=== PATIENT | male | born 1965 | race Two or more races ===

== ENCOUNTER 2016-10-11 11:56 | Inpatient (IN) | payer OTHER ==
[2016-10-11 13:15] VITALS: BMI 25.7
--- NOTE | 2016-10-11 14:40 | HP ---
COWS - Scale Resting Pulse: 2= NM 101-120 Sweatin=Flushed/Facial Moisture Restless Observation: 1= Difficult to Sit Still Pupil Size: 1= Pupils >than Normal Bone or Joint Aches: 2= Severe Diffuse Aches Runny Nose/ Eye Tearin= Nasal Congestion GI Upset > 30mins: 2= Nausea/Diarrhea Tremor Observation: 1= Tremor [place], Not Seen Yawning Observation: 0= None Anxiety or Irritability: 2=Irritable/Anxious Goose Flesh Skin: 0=Smooth Skin COWS Score: 14 CIWA Score - CIWA Score Nausea/Vomitin-Int. Nausea w/Dry Heave Muscle Tremors: 3 Anxiety: 3 Agitation: 3 Paroxysmal Sweats: 3 Orientation: 0-Oriented Tacttile Disturbances: 2-Mild Itch/Numbness/Burn Auditory Disturbances: 0-None Visual Disturbances: 0-None Headache: 1-Very Mild CIWA-Ar Total Score: 19 Admission ROS BHS - HPI Chief Complaint: i'm tired of this life I need help to stop. Allergies/Adverse Reactions: Allergies Allergy/AdvReac Type Severity Reaction Status Date / Time No Known Allergies Allergy Verified 10/11/16 14:12 History of Present Illness: 51 y/o m pt with h/o heroin dep, chronic alcoholism and cocaine abuse seeking detox. Exam Limitations: No Limitations - Ebola screening Have you traveled outside of the country in the last 21 days: No Have you had contact with anyone from an Ebola affected area: No Have you been sick,other than usual withdrawal symptoms: No Do you have a fever: No - Review of Systems Constitutional: Malaise, Night Sweats, Changes in sleep, Unintentional Wgt. Loss (10 lbs x 2 weeks) EENT: reports: No Symptoms Reported Respiratory: reports: No Symptoms reported Cardiac: reports: No Symptoms Reported GI: reports: Diarrhea, Nausea, Vomiting, Abdominal cramping : reports: Frequency Musculoskeletal: reports: Back Pain Integumentary: reports: No Symptoms Reported Neuro: reports: Headache Endocrine: reports: No Symptoms Reported Hematology: reports: No Symptoms Reported Psychiatric: denies: No Sypmtoms Reported Other Systems: Reviewed and Negative Patient History - Patient Medical History Hx Anemia: No Hx Asthma: No Hx Chronic Obstructive Pulmonary Disease (COPD): No Hx Cancer: No Hx Cardiac Disorders: No Hx Congestive Heart Failure: No Hx Hypertension: Yes (ON MEDS.) Hx Hypercholesterolemia: No Hx Pacemaker: No HX Cerebrovascular Accident: No Hx Seizures: No Hx Dementia: No Hx Diabetes: No Hx Gastrointestinal Disorders: No Hx Liver Disease: No Hx Genitourinary Disorders: No Hx Sexually Transmitted Disorders: No Hx Renal Disease (ESRD): No Hx Thyroid Disease: No Hx Human Immunodeficiency Virus (HIV): No (NEGATIVE HX LAST 11/09) Hx Hepatitis C: Yes (no tx ) Hx Depression: No Hx Suicide Attempt: No Hx Bipolar Disorder: No Hx Schizophrenia: No - Patient Surgical History Past Surgical History: Yes Hx Neurologic Surgery: No Hx Cataract Extraction: No Hx Cardiac Surgery: No Hx Lung Surgery: No Hx Breast Surgery: No Hx Breast Biopsy: No Hx Abdominal Surgery: No Hx Appendectomy: No Hx Cholecystectomy: No Hx Genitourinary Surgery: No Hx Section: No Hx Orthopedic Surgery: Yes (fx, left forearm at age 25) Anesthesia Reaction: No - PPD History Previous Implant?: Yes Documented Results: Negative w/proof Implanted On Prior [facility] Admission?: Yes Date: 08/17/16 Results: 0 MM - Reproductive History Patient is a Female of Child Bearing Age (11 -55 yrs old): No - Smoking Cessation Smoking history: Current every day smoker Have you smoked in the past 12 months: Yes Aproximately how many cigarettes per day: 20 Cigars Per Day: 0 Hx Chewing Tobacco Use: No Initiated information on smoking cessation: Yes 'Breaking Loose' booklet given: 10/11/16 - Substance & Tx. History Hx Alcohol Use: Yes Hx Substance Use: Yes Substance Use Type: Alcohol, Cocaine, Heroin - Substances Abused Heroin Route: Injection Frequency: Daily Amount used: 8 BAGS Age of first use: 25 Date of Last Use: 10/10/16 Alcohol Route: Oral Frequency: Daily Amount used: 6-8 22 OZ BEERS Age of first use: 20 Date of Last Use: 10/11/16 Cocaine Route: Injection Frequency: 3-6 times per week Amount used: $20 Age of first use: 20 Date of Last Use: 10/09/16 Family Disease History - Family Disease History Family Disease History: Diabetes: Mother, [place]: Father (ETOH DEPENDENT AND FROM [place]. OF THE ESOPHAGUS) Admission Physical Exam BHS - Vital Signs Vital Signs: Vital Signs - 24 hr 10/11/16 10/11/16 10/11/16 13:13 13:15 13:17 Temperature 96.4 F L 96.4 F L 96.4 F L Pulse Rate 118 H 118 H 118 H Respiratory 20 20 20 Rate Blood Pressure 151/92 151/92 151/92 51 y/o m pt aox3 , anxious , cooperative with exam - Physical General Appearance: Yes: Tremorous, Irritable, Sweating, Anxious HEENTM: Yes: EOMI, Hearing grossly Normal, Normocephalic, Normal Voice, CUCA, Nasal Congestion Respiratory: Yes: Chest Non-Tender, Lungs Clear, Normal Breath Sounds, No Respiratory Distress Breast: Yes: Within Normal Limits Cardiology: Yes: Regular Rhythm, Regular Rate, S1, S2 Genitourinary: Yes: Frequency Back: Yes: Muscle Spasm Extremities: Yes: Tremors Neurological: Yes: insurance law specialist II-XII NML intact, Fully Oriented, Alert, Normal Response Integumentary: Yes: Moist Lymphatic: Yes: Within Normal Limits - Diagnostic (1) Alcohol dependence with uncomplicated withdrawal Current Visit: Yes Status: Chronic (2) Cocaine dependence Current Visit: Yes Status: Chronic Qualifiers: Substance use status: uncomplicated Qualified Code(s): F14.20 - Cocaine dependence, uncomplicated (3) Low back pain Current Visit: No Status: Acute Qualifiers: Chronicity: acute Back pain laterality: bilateral Sciatica presence : without sciatica Qualified Code(s): M54.5 - Low back pain (4) Opioid dependence with withdrawal Current Visit: No Status: Acute (5) Weight loss Current Visit: Yes Status: Acute (6) HTN (hypertension) Current Visit: Yes Status: Chronic Qualifiers: Hypertension type: essential hypertension Qualified Code(s): I10 - Essential (primary) hypertension (7) Nicotine dependence Current Visit: Yes Status: Chronic Qualifiers: Nicotine product type: cigarettes Substance use status: uncomplicated Qualified Code(s): F17.210 - Nicotine dependence, cigarettes, uncomplicated Cleared for Admission B[facility] - Detox or Rehab [facility] Level of Care: Medically Managed Detox Regimen/Protocol: Methadone/Librium B[facility] Breath Alcohol Content Breath Alcohol Content: 0 Urine Drug Screen - Results Drug Screen Negative: No Urine Drug Screen Results: ONEIL-Cocaine, OPI-Opiates, MTD-Methadone
[2016-10-11] MEDS ORDERED: LOPERAMIDE HCL 2 MG CAPSULE PO PRN (14:58)
[2016-10-11] MEDS ORDERED: diphenhydrAMINE HCL 50 MG CAPSULE PO PRN (14:58)
[2016-10-11] MEDS ORDERED: ACETAMINOPHEN 325 MG TABLET (FP) PO PRN (14:58)
[2016-10-11] MEDS ORDERED: NICOTINE POLACRILEX 4 MG GUM BUC PRN (14:58)
[2016-10-11] MEDS ORDERED: MAGNESIUM CITRATE 300 ML BOTTLE PO PRN (14:58)
[2016-10-11] MEDS ORDERED: P-EPHED 60MG/TRIPROLIDI 2.5MG TABLET PO PRN (14:58)
[2016-10-11] MEDS ORDERED: MENTHOL/PHENOL 1 EACH UD MM PRN (14:58)
[2016-10-11] MEDS ORDERED: hydrOXYzine PAMOATE 25 MG CAPSULE (FP) PO PRN (14:58)
[2016-10-11] MEDS ORDERED: guaiFENesin/D-METHORPHAN HB 10 ML UNIT-DOSE CUPS PO PRN (14:58)
[2016-10-11] MEDS ORDERED: IBUPROFEN 400 MG TABLET (FP) PO PRN (14:58)
[2016-10-11] MEDS ORDERED: MAGNESIUM HYDROX 2400MG/30ML ORAL SUSPENSION 30 ML CUP PO PRN (14:58)
[2016-10-11] MEDS ORDERED: MAG HYDROX/AL HYDROX/SIMETH 30 ML UNIT-DOSE CUP PO PRN (14:58)
[2016-10-11] MEDS ORDERED: METHADONE HCL 10 MG TABLET (FOR DETOX USE ONLY) PO ONE ×2 (15:47→23:00)
[2016-10-11] MEDS: chlordiazePOXIDE HCL 25 MG CAPSULE PO PRN (16:00)
[2016-10-11] MEDS: chlordiazePOXIDE HCL 25 MG CAPSULE PO SCH ×2 (17:26→22:13)
[2016-10-11 20:27] LABS: URINE APPEARANCE CLEAR; URINE BILIRUBIN NEGATIVE (NEGATIVE); URINE BLOOD NEGATIVE (NEGATIVE); URINE COLOR YELLOW; URINE GLUCOSE (UA) NEGATIVE (NEGATIVE); URINE KETONE NEGATIVE (NEGATIVE); URINE LEUK ESTERASE NEGATIVE (NEGATIVE); URINE NITRITE NEGATIVE (NEGATIVE); URINE PROTEIN NEGATIVE (NEGATIVE); URINE UROBILINOGEN 2.0 E.U/dl E.U./dl (0.2-1.0)
[2016-10-11] MEDS ORDERED: THIAMINE HCL 100 MG TABLET (FP) PO SCH (22:00)
[2016-10-12] MEDS: chlordiazePOXIDE HCL 25 MG CAPSULE PO SCH ×2 (05:33→10:18)
[2016-10-12] MEDS ORDERED: PRENATAL VITAMINS W/ FOLIC ACID TABLET (FP) PO SCH (10:00)
[2016-10-12] MEDS ORDERED: NICOTINE 21 MG/24 HOURS TOPICAL PATCH TD SCH (10:00)
[2016-10-12] MEDS ORDERED: METHADONE HCL 10 MG TABLET (FOR DETOX USE ONLY) PO SCH (10:00)
[2016-10-12] MEDS ORDERED: METOPROLOL TARTRATE 50 MG TABLET (FP) PO SCH (10:00)
[2016-10-12] MEDS ORDERED: amLODIPine BESYLATE 5 MG TABLET (FP) PO SCH (10:00)
[2016-10-12 10:14] LABS: CALCIUM 9.2 mg/dL (8.5-10.1)
[2016-10-12 10:20] LABS: ALBUMIN 3.8 g/dl (3.4-5.0); ALK PHOS 131 U/L (45-117); ANION GAP 9 (8-16); BILIRUBIN,TOTAL 0.7 mg/dL (0.2-1.0); CO2 21 mmol/L (21-32); GLUCOSE,RANDOM 151 mg/dL (74-106); SGOT/AST 69 U/L (15-37); SGPT/ALT 85 U/L (12-78); TOT PROT 8.2 g/dl (6.4-8.2)
[2016-10-12 10:22] LABS: MCH 30.3 pg (25.7-33.7); MCHC 33.3 g/dl (32.0-35.9); MEAN PLT VOLUME 9.5 fl (7.5-11.1); PLATELET COUNT 264 K/MM3 (134-434); RDW 13.9 % (11.9-15.9); WHITE BLOOD COUNT 4.3 K/mm3 (4.0-10.0)
[2016-10-12 11:39] LABS: HIV 1 & 2 AB NEGATIVE; HIV 1 AGp24 NEGATIVE
[2016-10-12 14:18] VITALS: BP 138/97; PULSE 76; TEMP 95.3
[2016-10-12] MEDS: chlordiazePOXIDE HCL 25 MG CAPSULE PO PRN (14:51)
--- NOTE | 2016-10-12 15:46 | DS ---
[facility] Detox Discharge Summary Admission Date: 10/11/16 Discharge Date: 10/12/16 - History Present History: Alcohol Dependence, Cocaine Dependence, Opioid Dependence Additional Comments: PT DECLINED TO CONTINUE WITH DETOX. WHEN ASKED, PT DEMANDS TO LEAVE NOW STATING "I DON'T WANT TO KILL SOMEBODY". PT SIGNED OUT AMA. Pertinent Past History: HTN OBESITY LOWER BACK PAIN - Physical Exam Results Vital Signs: Vital Signs Temperature 95.3 F L 10/12/16 14:17 Pulse Rate 76 10/12/16 14:17 Respiratory Rate 18 10/12/16 14:17 Blood Pressure 138/97 10/12/16 14:17 O2 Sat by Pulse Oximetry (%) Pertinent Admission Physical Exam Findings: WITHDRAWAL SX - Medication Discharge Medications: Ambulatory Orders Amlodipine Besylate [Norvasc -] 5 mg PO DAILY #30 tablet 03/04/16 Metoprolol Tartrate [Lopressor -] 50 mg PO DAILY #30 tablet 03/04/16 - Diagnosis (1) Alcohol dependence with uncomplicated withdrawal Current Visit: Yes Status: Acute (2) HTN (hypertension) Current Visit: Yes Status: Chronic Qualifiers: Hypertension type: essential hypertension Qualified Code(s): I10 - Essential (primary) hypertension (3) Nicotine dependence Current Visit: Yes Status: Chronic Qualifiers: Nicotine product type: cigarettes Substance use status: uncomplicated Qualified Code(s): F17.210 - Nicotine dependence, cigarettes, uncomplicated (4) Low back pain Current Visit: No Status: Acute Qualifiers: Chronicity: acute Back pain laterality: bilateral Sciatica presence : without sciatica Qualified Code(s): M54.5 - Low back pain (5) Opioid dependence with withdrawal Current Visit: Yes Status: Acute (6) Obesity Current Visit: Yes Status: Chronic Qualifiers: Obesity severity: unspecified obesity severity (7) Cocaine dependence Current Visit: Yes Status: Acute Qualifiers: Substance use status: uncomplicated Qualified Code(s): F14.20 - Cocaine dependence, uncomplicated - AMA Did Patient Leave Against Medical Advice: Yes (AMA)
--- NOTE | 2016-10-12 16:56 | EKG ---
Test Reason : Blood Pressure : / mmHG Vent. Rate : 095 BPM Atrial Rate : 095 BPM P-R Int : 152 ms QRS Dur : 084 ms QT Int : 356 ms P-R-T Axes : 064 022 011 degrees QTc Int : 447 ms NORMAL SINUS RHYTHM NORMAL ECG NO PREVIOUS ECGS AVAILABLE Confirmed by VIANEY CARROLL MD ([id number]) on 10/12/2016 4:55:52 PM Referred By: Confirmed By:VIANEY CARROLL MD
[2016-10-12] MEDS ORDERED: chlordiazePOXIDE HCL 25 MG CAPSULE PO SCH (17:00)
[2016-10-13] MEDS ORDERED: METHADONE HCL 5 MG TABLET (FOR DETOX USE ONLY) PO SCH (10:00)
[2016-10-13] MEDS ORDERED: chlordiazePOXIDE 5 MG CAPSULE PO SCH (17:00)
[2016-10-14] MEDS ORDERED: chlordiazePOXIDE HCL 10 MG CAPSULE PO SCH (17:00)
[2016-10-15] MEDS ORDERED: METHADONE HCL 10 MG TABLET (FOR DETOX USE ONLY) PO SCH (10:00)
[2016-10-16] MEDS ORDERED: METHADONE HCL 5 MG TABLET (FOR DETOX USE ONLY) PO SCH (06:00)
== END 2016-10-12 16:17 | disposition left against medical advice (07) | DRG 770 ==
LOC: YASAS 11:56 → Y3N 15:17
PROVIDERS: ADMIT Internal Medicine; ATTEND Internal Medicine
PROC: HZ2ZZZZ Detoxification Services for Substance Abuse Treatment (ICD-10-PCS; principal; 2016-10-11)
DX: F11.23 Opioid dependence with withdrawal (principal); F10.230 Alcohol dependence with withdrawal, uncomplicated; F14.20 Cocaine dependence, uncomplicated; F17.210 Nicotine dependence, cigarettes, uncomplicated; I10 Essential (primary) hypertension; M54.5 Low back pain; E66.9 Obesity, unspecified; Z68.25 Body mass index [BMI] 25.0-25.9, adult; Z87.898 Personal history of other specified conditions
CPT/HCPCS: 36415; 80053; 81003; 85027; 86593; 86780; 87389; 93005; 93010

== ENCOUNTER 2017-06-13 11:07 | Inpatient (IN) | payer OTHER ==
[2017-06-13 16:06] VITALS: BMI 25.7
--- NOTE | 2017-06-13 17:41 | HP ---
COWS - Scale Resting Pulse: 1= [place] 81-100 Sweatin= Chills/Flushing Restless Observation: 1= Difficult to Sit Still Pupil Size: 0= Normal to Room Light Bone or Joint Aches: 2= Severe Diffuse Aches Runny Nose/ Eye Tearin= Runny Nose/Eyes GI Upset > 30mins: 2= Nausea/Diarrhea Tremor Observation: 2= Slight Tremor Visible Yawning Observation: 0= None Anxiety or Irritability: 2=Irritable/Anxious Goose Flesh Skin: 0=Smooth Skin COWS Score: 13 CIWA Score - CIWA Score Nausea/Vomitin-Mild Nausea/No Vomiting Muscle Tremors: 4-Moderate,w/Arms Extend Anxiety: 4-Mod. Anxious/Guarded Agitation: 4-Moderately Restless Paroxysmal Sweats: 1-Minimal Palms Moist Orientation: 0-Oriented Tacttile Disturbances: 0-None Auditory Disturbances: 0-None Visual Disturbances: 0-None Headache: 0-None Present CIWA-Ar Total Score: 14 Admission ROS BHS - HPI Chief Complaint: WITHDRAWAL SX Allergies/Adverse Reactions: Allergies Allergy/AdvReac Type Severity Reaction Status Date / Time No Known Allergies Allergy Verified 06/13/17 17:04 History of Present Illness: 52 YEARS OLD MALE WITH LONG HISTORY OF ALCOHOL, OPIATE, COCAINE, NICOTINE DEPENDENCE, DENIES MEDICAL ISSUE HAS DEPRESSION IS ADMITTED TO DETOX Exam Limitations: No Limitations - Ebola screening Have you traveled outside of the country in the last 21 days: No Have you had contact with anyone from an Ebola affected area: No Have you been sick,other than usual withdrawal symptoms: No Do you have a fever: No - Review of Systems Constitutional: Loss of Appetite, Changes in sleep, Unintentional Wgt. Loss, Unexplained wgt Loss EENT: reports: No Symptoms Reported Respiratory: reports: No Symptoms reported Cardiac: reports: No Symptoms Reported GI: reports: Nausea, Poor Appetite, Poor Fluid Intake, Abdominal cramping : reports: No Symptoms Reported Musculoskeletal: reports: Back Pain, Joint Pain, Muscle Pain, Neck Pain Integumentary: reports: Change in Color (OPIATE BOTH HANDS) Neuro: reports: Tremors Endocrine: reports: No Symptoms Reported Hematology: reports: No Symptoms Reported Psychiatric: reports: Judgement Intact, Orientated x3, Anxious, Depressed Other Systems: Reviewed and Negative Patient History - Patient Medical History Hx Anemia: No Hx Asthma: No Hx Chronic Obstructive Pulmonary Disease (COPD): No Hx Cancer: No Hx Cardiac Disorders: No Hx Congestive Heart Failure: No Hx Hypertension: No (not on meds.) Hx Hypercholesterolemia: No Hx Pacemaker: No HX Cerebrovascular Accident: No Hx Seizures: No Hx Dementia: No Hx Diabetes: No Hx Gastrointestinal Disorders: Yes Hx Liver Disease: No Hx Genitourinary Disorders: No Hx Sexually Transmitted Disorders: No Hx Renal Disease (ESRD): No Hx Thyroid Disease: No Hx Human Immunodeficiency Virus (HIV): No (NEGATIVE HX LAST 11/09) Hx Hepatitis C: Yes (no tx ) Hx Depression: Yes Hx Suicide Attempt: No Hx Bipolar Disorder: No Hx Schizophrenia: No - Patient Surgical History Past Surgical History: Yes Hx Neurologic Surgery: No Hx Cataract Extraction: No Hx Cardiac Surgery: No Hx Lung Surgery: No Hx Breast Surgery: No Hx Breast Biopsy: No Hx Abdominal Surgery: No Hx Appendectomy: No Hx Cholecystectomy: No Hx Genitourinary Surgery: No Hx Orthopedic Surgery: Yes (fx, left forearm at age 25 [employer]) Anesthesia Reaction: No - PPD History Previous Implant?: Yes Documented Results: Negative w/proof Implanted On Prior [facility] Admission?: Yes Date: 08/17/16 Results: 0 mm PPD to be Administered?: No - Smoking Cessation Smoking history: Current every day smoker Have you smoked in the past 12 months: Yes Aproximately how many cigarettes per day: 20 Cigars Per Day: 0 Hx Chewing Tobacco Use: No Initiated information on smoking cessation: Yes 'Breaking Loose' booklet given: 06/13/17 - Substance & Tx. History Hx Alcohol Use: Yes Hx Substance Use: Yes Substance Use Type: Alcohol, Cocaine, Heroin Hx Substance Use Treatment: Yes (10/11-10/12/16 [facility]) - Substances Abused Heroin Route: Injection Frequency: Daily Amount used: 10 bags Age of first use: 25 Date of Last Use: 06/13/17 Alcohol Route: Oral Frequency: Daily Amount used: 8-10 beers/60OZ Age of first use: 20 Date of Last Use: 06/13/17 Cocaine Route: Injection Frequency: Daily Amount used: $60 Age of first use: 25 Date of Last Use: 06/13/17 Family Disease History - Family Disease History Family Disease History: Diabetes: Mother, [place]: Father (ETOH DEPENDENT AND FROM [place]. OF THE ESOPHAGUS) Admission Physical Exam [facility] - Vital Signs Vital Signs: Vital Signs - 24 hr 06/13/17 16:04 Temperature 96 F L Pulse Rate 84 Respiratory 20 Rate Blood Pressure 134/84 - Physical General Appearance: Yes: Appropriately Dressed, Mild Distress, Thin, Tremorous, Irritable, Sweating, Anxious HEENTM: Yes: Hearing grossly Normal, Normal ENT Inspection, Normocephalic, Normal Voice Respiratory: Yes: Chest Non-Tender, Lungs Clear, Normal Breath Sounds, No Respiratory Distress, No Accessory Muscle Use Neck: Yes: Supple, Trachea in good position Breast: Yes: Breasts Symetrical Cardiology: Yes: Regular Rhythm, Regular Rate, S1, S2 Abdominal: Yes: Normal Bowel Sounds, Non Tender, Soft Genitourinary: Yes: Within Normal Limits Back: Yes: Normal Inspection, Other (RIGHT FLANK MILD TENDER) Musculoskeletal: Yes: full range of Motion, Gait Steady, Back pain, Muscle Pain Extremities: Yes: Normal Inspection (IV OPIATE HANDS), Normal Range of Motion, Non-Tender, Tremors Neurological: Yes: Fully Oriented, Alert, Motor Strength 5/5, Normal Response, Depressed Affect Integumentary: Yes: Warm, Track Fuentes Lymphatic: Yes: Within Normal Limits - Diagnostic (1) Alcohol dependence with uncomplicated withdrawal Current Visit: Yes Status: Acute (2) Opioid dependence with withdrawal Current Visit: Yes Status: Acute (3) Weight loss Current Visit: Yes Status: Acute (4) Cocaine dependence, uncomplicated Current Visit: Yes Status: Chronic (5) GERD (gastroesophageal reflux disease) Current Visit: Yes Status: Chronic Qualifiers: Esophagitis presence: without esophagitis Qualified Code(s): K21.9 - Gastro-esophageal reflux disease without esophagitis (6) Hepatitis C carrier Current Visit: Yes Status: Chronic Comment: SCHEDULE TO TREAT Cleared for Admission [facility] - Detox or Rehab [facility] Level of Care: Medically Managed Detox Regimen/Protocol: Methadone/Librium [facility] Breath Alcohol Content Breath Alcohol Content: 0 Urine Drug Screen - Results Drug Screen Negative: No Urine Drug Screen Results: ONEIL-Cocaine, OPI-Opiates
[2017-06-13] MEDS ORDERED: P-EPHED 60MG/TRIPROLIDI 2.5MG TABLET PO PRN (17:50)
[2017-06-13] MEDS ORDERED: MAGNESIUM CITRATE 300 ML BOTTLE PO PRN (17:50)
[2017-06-13] MEDS ORDERED: MAG HYDROX/AL HYDROX/SIMETH 30 ML UNIT-DOSE CUP PO PRN (17:50)
[2017-06-13] MEDS ORDERED: LOPERAMIDE HCL 2 MG CAPSULE PO PRN (17:50)
[2017-06-13] MEDS ORDERED: MENTHOL/PHENOL 1 EACH UD MM PRN (17:50)
[2017-06-13] MEDS ORDERED: guaiFENesin/D-METHORPHAN HB 10 ML UNIT-DOSE CUPS PO PRN (17:50)
[2017-06-13] MEDS ORDERED: MAGNESIUM HYDROX 2400MG/30ML ORAL SUSPENSION 30 ML CUP PO PRN (17:50)
[2017-06-13] MEDS ORDERED: BACITRACIN 0.9 GM PACKET TP PRN (17:53)
[2017-06-13] MEDS ORDERED: METHADONE HCL 10 MG TABLET (FOR DETOX USE ONLY) PO ONE ×2 (18:30→23:00)
[2017-06-13] MEDS: chlordiazePOXIDE HCL 25 MG CAPSULE PO PRN (19:11)
[2017-06-13 21:27] LABS: URINE APPEARANCE SLCLOUDY; URINE BILIRUBIN NEGATIVE (NEGATIVE); URINE BLOOD NEGATIVE (NEGATIVE); URINE COLOR YELLOW; URINE GLUCOSE (UA) NEGATIVE (NEGATIVE); URINE KETONE NEGATIVE (NEGATIVE); URINE LEUK ESTERASE NEGATIVE (NEGATIVE); URINE NITRITE NEGATIVE (NEGATIVE); URINE PROTEIN NEGATIVE (NEGATIVE); URINE UROBILINOGEN NEGATIVE mg/dL (0.2-1.0)
[2017-06-13] MEDS: THIAMINE HCL 100 MG TABLET (FP) PO SCH (22:27)
[2017-06-13] MEDS: chlordiazePOXIDE HCL 25 MG CAPSULE PO SCH (22:27)
[2017-06-13] MEDS: RANITIDINE HCL 150 MG TABLET (FP) PO SCH (22:27)
[2017-06-14] MEDS: chlordiazePOXIDE HCL 25 MG CAPSULE PO SCH ×4 (05:38→22:35)
[2017-06-14] MEDS ORDERED: METHADONE HCL 10 MG TABLET (FOR DETOX USE ONLY) PO SCH (10:00)
[2017-06-14 10:21] LABS: MCH 30.2 pg (25.7-33.7); MCHC 33.7 g/dl (32.0-35.9); MEAN CELL VOLUME 89.4 fl (80-96); MEAN PLT VOLUME 8.9 fl (7.5-11.1); PLATELET COUNT 219 K/MM3 (134-434); RDW 13.7 % (11.9-15.9); WHITE BLOOD COUNT 3.8 K/mm3 (4.0-10.0)
[2017-06-14 10:33] LABS: ALBUMIN 2.7 g/dl (3.4-5.0); ALK PHOS 75 U/L (45-117); ANION GAP 6 (8-16); BILIRUBIN,TOTAL 0.3 mg/dL (0.2-1.0); CALCIUM 8.8 mg/dL (8.5-10.1); CO2 25 mmol/L (21-32); CREATININE 0.9 mg/dL (0.7-1.3); GLUCOSE,RANDOM 93 mg/dL (74-106); SGOT/AST 35 U/L (15-37); SGPT/ALT 49 U/L (12-78); TOT PROT 6.4 g/dl (6.4-8.2)
[2017-06-14] MEDS: RANITIDINE HCL 150 MG TABLET (FP) PO SCH ×2 (10:44→22:35)
[2017-06-14] MEDS: PRENATAL VITAMINS W/ FOLIC ACID TABLET (FP) PO SCH (10:44)
[2017-06-14] MEDS: NICOTINE 21 MG/24 HOURS TOPICAL PATCH TD SCH (10:45)
[2017-06-14 11:29] LABS: HIV 1 & 2 AB NEGATIVE; HIV 1 AGp24 NEGATIVE
[2017-06-14] MEDS: chlordiazePOXIDE HCL 25 MG CAPSULE PO PRN (12:35)
--- NOTE | 2017-06-14 13:44 | PN ---
[facility] CIWA - CIWA Score Nausea/Vomitin-No Nausea/No Vomiting Muscle Tremors: 3 Anxiety: 4-Mod. Anxious/Guarded Agitation: 4-Moderately Restless Paroxysmal Sweats: 3 Orientation: 0-Oriented Tacttile Disturbances: 0-None Auditory Disturbances: 0-None Visual Disturbances: 0-None Headache: 0-None Present CIWA-Ar Total Score: 14 S COWS - Scale Resting Pulse: 1= DE 81-100 Sweatin=Flushed/Facial Moisture Restless Observation: 1= Difficult to Sit Still Pupil Size: 0= Normal to Room Light Bone or Joint Aches: 1= Mild Discomfort Runny Nose/ Eye Tearin= Runny Nose/Eyes GI Upset > 30mins: 2= Nausea/Diarrhea Tremor Observation of Outstretched Hands: 2= Slight Tremor Visible Yawning Observation: 1= 1-2x During Session Anxiety or Irritability: 2=Irritable/Anxious Goose Flesh Skin: 0=Smooth Skin COWS Score: 14 [facility] Progress Note (SOAP) Subjective: Anxiety,tremors,sweating,interrupted sleep,restless Objective: 06/14/17 13:46 Vital Signs - 8 hr 06/14/17 09:49 Temperature 98.4 F Pulse Rate 85 Respiratory 18 Rate Blood Pressure 167/101 Laboratory Tests 06/13/17 06/14/17 06/14/17 20:50 07:30 07:30 WBC 3.8 L RBC 4.74 Hgb 14.3 D Hct 42.4 MCV 89.4 MCH 30.2 MCHC 33.7 RDW 13.7 Plt Count 219 MPV 8.9 Sodium Potassium Chloride Carbon Dioxide Anion Gap BUN Creatinine Creat Clearance w eGFR Random Glucose Calcium Total Bilirubin AST ALT Alkaline Phosphatase Total Protein Albumin Urine Color Yellow Urine Appearance Slcloudy Urine pH 5.0 Ur Specific [place] 1.015 Urine Protein Negative Urine Glucose (UA) Negative Urine Ketones Negative Urine Blood Negative Urine Nitrite Negative Urine Bilirubin Negative Urine Urobilinogen Negative RPR Titer T.pallidum Ab (A) HIV 1&2 Antibody Screen Negative HIV P24 Antigen Negative 06/14/17 06/14/17 07:30 07:30 WBC RBC Hgb Hct MCV MCH MCHC RDW Plt Count MPV Sodium 140 Potassium 4.4 Chloride 109 H Carbon Dioxide 25 Anion Gap 6 L BUN 12 Creatinine 0.9 Creat Clearance w eGFR > 60 Random Glucose 93 D Calcium 8.8 Total Bilirubin 0.3 D AST 35 D ALT 49 D Alkaline Phosphatase 75 D Total Protein 6.4 D Albumin 2.7 L D Urine Color Urine Appearance Urine pH Ur Specific [place] Urine Protein Urine Glucose (UA) Urine Ketones Urine Blood Urine Nitrite Urine Bilirubin Urine Urobilinogen RPR Titer Reactive 1:1 H T.pallidum Ab (MHA) Previously reactive HIV 1&2 Antibody Screen HIV P24 Antigen labs noted Assessment: 06/14/17 13:49 Withdrawal sx. Plan: Continue detox
--- NOTE | 2017-06-14 14:03 | CONSULT ---
[facility] Psychiatric Consult - Data Date of interview: 06/14/17 Admission source: [facility] Identifying data: This is 52 years old male with unclear past psychiatric history intoxicated with: Alcohol, Cocaine, Opioids and Nicotine Substance Abuse History: - Smoking Cessation. Smoking history: Current every day smoker. Have you smoked in the past 12 months: Yes. Aproximately how many cigarettes per day: 20. Cigars Per Day: 0. Hx Chewing Tobacco Use: No. Initiated information on smoking cessation: Yes. 'Breaking Loose' booklet given : 06/13/17. - Substance & Tx. History. Hx Alcohol Use: Yes. Hx Substance Use : Yes. Substance Use Type: Alcohol, Cocaine, Heroin. Hx Substance Use Treatment: Yes (10/11-10/12/16 [facility]). - Substances Abused. Heroin. Route: Injection. Frequency: Daily. Amount used: 10 bags. Age of first use: 25. Date of Last Use: 06/13/17. Alcohol. Route: Oral. Frequency: Daily. Amount used: 8-10 beers/60OZ. Age of first use: 20. Date of Last Use: . Cocaine. Route: Injection. Frequency: Daily. Amount used: $60. Age of first use: 25. Date of Last Use: 06/13/17 Medical History: Weight loss history, GERD, HepC+, LBP, HTN, Obesity Psychiatric History: Patient minimizing past psychiatric history Physical/Sexual Abuse/Trauma History: Denies, unclear Additional Comment: Observation. Detox Unit Care Protocol Mental Status Exam - Mental Status Exam Alert and Oriented to: Person Cognitive Function: Fair Patient Appearance: Unkempt Mood: Sad Affect: Flat Patient Behavior: Sedated Speech Pattern: Delayed Voice Loudness: Mildly Soft/Quiet Thought Process: Circumstantial Thought Disorder: Being Controlled Hallucinations: Denies Suicidal Ideation: Denies Homicidal Ideation: Denies Insight/Judgement: Fair Sleep: Difficulty falling asleep Appetite: Weight gain Muscle strength/Tone: Mild Hypotonicity Gait/Station: Shuffling Additional Comments: Observation. Detox Unit Care Protocol Psychiatric Findings - Problem List ([place] 1, 2,3) (1) Alcohol dependence with uncomplicated withdrawal Current Visit: Yes Status: Acute (2) Opioid dependence with withdrawal Current Visit: Yes Status: Acute (3) Weight loss Current Visit: Yes Status: Acute (4) Cocaine dependence, uncomplicated Current Visit: Yes Status: Chronic (5) Alcohol dependence Current Visit: No Status: Acute Qualifiers: Substance use status: uncomplicated Qualified Code(s): F10.20 - Alcohol dependence, uncomplicated (6) Cocaine dependence Current Visit: No Status: Acute Qualifiers: Substance use status: uncomplicated Qualified Code(s): F14.20 - Cocaine dependence, uncomplicated (7) Nicotine dependence Current Visit: No Status: Chronic Qualifiers: Nicotine product type: cigarettes Substance use status: uncomplicated Qualified Code(s): F17.210 - Nicotine dependence, cigarettes, uncomplicated (8) Drug-induced mood disorder Current Visit: Yes Status: Suspected - Initial Treatment Plan Initial Treatment Plan: Observation. Detox Unit Care Protocol
--- NOTE | 2017-06-14 16:01 | EKG ---
Test Reason : Blood Pressure : / mmHG Vent. Rate : 081 BPM Atrial Rate : 081 BPM P-R Int : 152 ms QRS Dur : 076 ms QT Int : 396 ms P-R-T Axes : 062 031 028 degrees QTc Int : 460 ms NORMAL SINUS RHYTHM NORMAL ECG WHEN COMPARED WITH ECG OF 11-OCT-2016 16:10, NO SIGNIFICANT CHANGE WAS FOUND Confirmed by VIANEY CARROLL MD ([id number]) on 06/14/2017 4:00:45 PM Referred By: Jared Huizar Confirmed By:VIANEY CARROLL MD
[2017-06-14] MEDS: ACETAMINOPHEN 325 MG TABLET (FP) PO PRN (17:05)
[2017-06-14] MEDS: THIAMINE HCL 100 MG TABLET (FP) PO SCH (22:35)
[2017-06-14] MEDS: diphenhydrAMINE HCL 50 MG CAPSULE PO PRN (22:36)
[2017-06-15] MEDS: chlordiazePOXIDE HCL 25 MG CAPSULE PO SCH ×3 (05:59→17:03)
[2017-06-15] MEDS: ACETAMINOPHEN 325 MG TABLET (FP) PO PRN ×3 (05:59→13:44)
[2017-06-15] MEDS ORDERED: cloNIDine HCL 0.1 MG TABLET PO ONE (07:06)
[2017-06-15] MEDS ORDERED: cloNIDine HCL 0.1 MG TABLET PO PRN (07:06)
[2017-06-15] MEDS: RANITIDINE HCL 150 MG TABLET (FP) PO SCH ×2 (10:40→22:19)
[2017-06-15] MEDS: METHADONE HCL 5 MG TABLET (FOR DETOX USE ONLY) PO SCH (10:40)
[2017-06-15] MEDS: NICOTINE 21 MG/24 HOURS TOPICAL PATCH TD SCH (10:40)
[2017-06-15] MEDS: PRENATAL VITAMINS W/ FOLIC ACID TABLET (FP) PO SCH (10:40)
--- NOTE | 2017-06-15 12:56 | PN ---
[facility] CIWA - CIWA Score Nausea/Vomitin-No Nausea/No Vomiting Muscle Tremors: 4-Moderate,w/Arms Extend Anxiety: 4-Mod. Anxious/Guarded Agitation: 4-Moderately Restless Paroxysmal Sweats: 1-Minimal Palms Moist Orientation: 0-Oriented Tacttile Disturbances: 3-Moderate Itch/Numb/Burn Auditory Disturbances: 0-None Visual Disturbances: 0-None Headache: 0-None Present CIWA-Ar Total Score: 16 S COWS - Scale Resting Pulse: 2= SD 101-120 Sweatin= Chills/Flushing Restless Observation: 3= Extraneous Movement Pupil Size: 0= Normal to Room Light Bone or Joint Aches: 4=Acute Joint/Muscle Pain Runny Nose/ Eye Tearin= Nasal Congestion GI Upset > 30mins: 1= Stomach Cramp Tremor Observation of Outstretched Hands: 2= Slight Tremor Visible Yawning Observation: 2= >3x During Session Anxiety or Irritability: 2=Irritable/Anxious Goose Flesh Skin: 0=Smooth Skin COWS Score: 18 [facility] Progress Note (SOAP) Subjective: ANXIETY,SWEATS,TREMORS,FATIGUE. Objective: 06/15/17 12:55 Vital Signs Temperature 98.7 F 06/15/17 10:33 Pulse Rate 83 06/15/17 10:33 Respiratory Rate 18 06/15/17 10:33 Blood Pressure 146/96 06/15/17 10:33 O2 Sat by Pulse Oximetry (%) Laboratory Last Values WBC 3.8 K/mm3 (4.0-10.0) L 06/14/17 07:30 RBC 4.74 M/mm3 (4.00-5.60) 06/14/17 07:30 Hgb 14.3 GM/dL (11.7-16.9) D 06/14/17 07:30 Hct 42.4 % (35.4-49) 06/14/17 07:30 MCV 89.4 fl (80-96) 06/14/17 07:30 MCH 30.2 pg (25.7-33.7) 06/14/17 07:30 MCHC 33.7 g/dl (32.0-35.9) 06/14/17 07:30 RDW 13.7 % (11.9-15.9) 06/14/17 07:30 Plt Count 219 K/MM3 (134-434) 06/14/17 07:30 MPV 8.9 fl (7.5-11.1) 06/14/17 07:30 Sodium 140 mmol/L (136-145) 06/14/17 07:30 Potassium 4.4 mmol/L (3.5-5.1) 06/14/17 07:30 Chloride 109 mmol/L (98-107) H 06/14/17 07:30 Carbon Dioxide 25 mmol/L (21-32) 06/14/17 07:30 Anion Gap 6 (8-16) L 06/14/17 07:30 BUN 12 mg/dL (7-18) 06/14/17 07:30 Creatinine 0.9 mg/dL (0.7-1.3) 06/14/17 07:30 Creat Clearance w eGFR > 60 (>60) 06/14/17 07:30 Random Glucose 93 mg/dL (74-106) D 06/14/17 07:30 Calcium 8.8 mg/dL (8.5-10.1) 06/14/17 07:30 Total Bilirubin 0.3 mg/dL (0.2-1.0) D 06/14/17 07:30 AST 35 U/L (15-37) D 06/14/17 07:30 ALT 49 U/L (12-78) D 06/14/17 07:30 Alkaline Phosphatase 75 U/L (45-117) D 06/14/17 07:30 Total Protein 6.4 g/dl (6.4-8.2) D 06/14/17 07:30 Albumin 2.7 g/dl (3.4-5.0) L D 06/14/17 07:30 Urine Color Yellow 06/13/17 20:50 Urine Appearance Slcloudy 06/13/17 20:50 Urine pH 5.0 (5.0-8.0) 06/13/17 20:50 Ur Specific [place] 1.015 (1.005-1.025) 06/13/17 20:50 Urine Protein Negative (NEGATIVE) 06/13/17 20:50 Urine Glucose (UA) Negative (NEGATIVE) 06/13/17 20:50 Urine Ketones Negative (NEGATIVE) 06/13/17 20:50 Urine Blood Negative (NEGATIVE) 06/13/17 20:50 Urine Nitrite Negative (NEGATIVE) 06/13/17 20:50 Urine Bilirubin Negative (NEGATIVE) 06/13/17 20:50 Urine Urobilinogen Negative mg/dL (0.2-1.0) 06/13/17 20:50 RPR Titer Reactive 1:1 (NONREACTIVE) H 06/14/17 07:30 T.pallidum Ab (MHA) Previously reactive (NONREACTIVE) 06/14/17 07:30 HIV 1&2 Antibody Screen Negative 06/14/17 07:30 HIV P24 Antigen Negative 06/14/17 07:30 Assessment: 06/15/17 12:56 WITHDRAWALS SX Plan: CONTINUE DETOX
[2017-06-15] MEDS: chlordiazePOXIDE HCL 25 MG CAPSULE PO PRN (13:30)
[2017-06-15] MEDS: THIAMINE HCL 100 MG TABLET (FP) PO SCH (22:19)
[2017-06-15] MEDS: diphenhydrAMINE HCL 50 MG CAPSULE PO PRN (22:19)
[2017-06-15] MEDS: chlordiazePOXIDE 5 MG CAPSULE PO SCH (22:19)
[2017-06-16] MEDS: chlordiazePOXIDE 5 MG CAPSULE PO SCH ×3 (05:34→17:11)
[2017-06-16] MEDS: ACETAMINOPHEN 325 MG TABLET (FP) PO PRN ×4 (05:36→22:24)
[2017-06-16] MEDS: RANITIDINE HCL 150 MG TABLET (FP) PO SCH ×2 (10:37→22:20)
[2017-06-16] MEDS: METHADONE HCL 5 MG TABLET (FOR DETOX USE ONLY) PO SCH (10:37)
[2017-06-16] MEDS: PRENATAL VITAMINS W/ FOLIC ACID TABLET (FP) PO SCH (10:37)
[2017-06-16] MEDS: NICOTINE 21 MG/24 HOURS TOPICAL PATCH TD SCH (10:39)
[2017-06-16] MEDS: CYCLOBENZAPRINE HCL 10 MG TABLET (FP) PO PRN ×2 (12:57→22:23)
[2017-06-16] MEDS: hydrOXYzine PAMOATE 50 MG CAPSULE (FP) PO PRN ×2 (13:40→20:27)
[2017-06-16] MEDS: NICOTINE POLACRILEX 4 MG GUM BC PRN (13:43)
--- NOTE | 2017-06-16 15:38 | PN ---
[facility] Progress Note (SOAP) Subjective: Interrupted sleep, Sweating, Body aches. Objective: PT. A & O X 3, OBSERVED AMBULATING ON UNIT. NO ACUTE DISTRESS. PT. DENIES CHEST PAIN. 06/16/17 15:36 Vital Signs Temperature 98.0 F 06/16/17 15:19 Pulse Rate 90 06/16/17 15:19 Respiratory Rate 18 06/16/17 15:19 Blood Pressure 139/68 06/16/17 15:19 O2 Sat by Pulse Oximetry (%) Laboratory Tests 06/13/17 06/14/17 06/14/17 20:50 07:30 07:30 WBC 3.8 L RBC 4.74 Hgb 14.3 D Hct 42.4 MCV 89.4 MCH 30.2 MCHC 33.7 RDW 13.7 Plt Count 219 MPV 8.9 Sodium Potassium Chloride Carbon Dioxide Anion Gap BUN Creatinine Creat Clearance w eGFR Random Glucose Calcium Total Bilirubin AST ALT Alkaline Phosphatase Total Protein Albumin Urine Color Yellow Urine Appearance Slcloudy Urine pH 5.0 Ur Specific [place] 1.015 Urine Protein Negative Urine Glucose (UA) Negative Urine Ketones Negative Urine Blood Negative Urine Nitrite Negative Urine Bilirubin Negative Urine Urobilinogen Negative RPR Titer T.pallidum Ab (MHA) HIV 1&2 Antibody Screen Negative HIV P24 Antigen Negative 06/14/17 06/14/17 07:30 07:30 WBC RBC Hgb Hct MCV MCH MCHC RDW Plt Count MPV Sodium 140 Potassium 4.4 Chloride 109 H Carbon Dioxide 25 Anion Gap 6 L BUN 12 Creatinine 0.9 Creat Clearance w eGFR > 60 Random Glucose 93 D Calcium 8.8 Total Bilirubin 0.3 D AST 35 D ALT 49 D Alkaline Phosphatase 75 D Total Protein 6.4 D Albumin 2.7 L D Urine Color Urine Appearance Urine pH Ur Specific [place] Urine Protein Urine Glucose (UA) Urine Ketones Urine Blood Urine Nitrite Urine Bilirubin Urine Urobilinogen RPR Titer Reactive 1:1 H T.pallidum Ab (MHA) Previously reactive HIV 1&2 Antibody Screen HIV P24 Antigen LABS NOTED. Assessment: 06/16/17 15:37 WITHDRAWAL SYMPTOMS. Plan: CONTINUE DETOX.
[2017-06-16] MEDS: THIAMINE HCL 100 MG TABLET (FP) PO SCH (22:20)
[2017-06-16] MEDS: chlordiazePOXIDE HCL 10 MG CAPSULE PO SCH (22:20)
[2017-06-16] MEDS: diphenhydrAMINE HCL 50 MG CAPSULE PO PRN (22:23)
[2017-06-17] MEDS: chlordiazePOXIDE HCL 10 MG CAPSULE PO SCH ×3 (05:51→16:47)
[2017-06-17] MEDS ORDERED: METHADONE HCL 10 MG TABLET (FOR DETOX USE ONLY) PO SCH (10:00)
[2017-06-17] MEDS: NICOTINE 21 MG/24 HOURS TOPICAL PATCH TD SCH (10:20)
[2017-06-17] MEDS: RANITIDINE HCL 150 MG TABLET (FP) PO SCH ×2 (10:20→22:12)
[2017-06-17] MEDS: PRENATAL VITAMINS W/ FOLIC ACID TABLET (FP) PO SCH (10:20)
[2017-06-17] MEDS: ACETAMINOPHEN 325 MG TABLET (FP) PO PRN ×2 (10:22→16:47)
[2017-06-17] MEDS: CYCLOBENZAPRINE HCL 10 MG TABLET (FP) PO PRN ×2 (10:22→22:12)
[2017-06-17] MEDS: hydrOXYzine PAMOATE 50 MG CAPSULE (FP) PO PRN ×2 (13:24→19:11)
[2017-06-17] MEDS: NICOTINE POLACRILEX 4 MG GUM BC PRN (13:24)
--- NOTE | 2017-06-17 14:53 | PN ---
S Progress Note (SOAP) Subjective: Anxious, sweating, interrupted sleep, nausea Objective: 06/17/17 14:52 Last Vital Signs Temp Pulse Resp BP Pulse Ox 97.5 F L 98 H 18 138/94 06/17/17 13:51 06/17/17 13:51 06/17/17 13:51 06/17/17 13:51 Laboratory Tests 06/13/17 06/14/17 06/14/17 20:50 07:30 07:30 WBC 3.8 L RBC 4.74 Hgb 14.3 D Hct 42.4 MCV 89.4 MCH 30.2 MCHC 33.7 RDW 13.7 Plt Count 219 MPV 8.9 Sodium Potassium Chloride Carbon Dioxide Anion Gap BUN Creatinine Creat Clearance w eGFR Random Glucose Calcium Total Bilirubin AST ALT Alkaline Phosphatase Total Protein Albumin Urine Color Yellow Urine Appearance Slcloudy Urine pH 5.0 Ur Specific [place] 1.015 Urine Protein Negative Urine Glucose (UA) Negative Urine Ketones Negative Urine Blood Negative Urine Nitrite Negative Urine Bilirubin Negative Urine Urobilinogen Negative RPR Titer T.pallidum Ab (A) HIV 1&2 Antibody Screen Negative HIV P24 Antigen Negative 06/14/17 06/14/17 07:30 07:30 WBC RBC Hgb Hct MCV MCH MCHC RDW Plt Count MPV Sodium 140 Potassium 4.4 Chloride 109 H Carbon Dioxide 25 Anion Gap 6 L BUN 12 Creatinine 0.9 Creat Clearance w eGFR > 60 Random Glucose 93 D Calcium 8.8 Total Bilirubin 0.3 D AST 35 D ALT 49 D Alkaline Phosphatase 75 D Total Protein 6.4 D Albumin 2.7 L D Urine Color Urine Appearance Urine pH Ur Specific [place] Urine Protein Urine Glucose (UA) Urine Ketones Urine Blood Urine Nitrite Urine Bilirubin Urine Urobilinogen RPR Titer Reactive 1:1 H T.pallidum Ab (MHA) Previously reactive HIV 1&2 Antibody Screen HIV P24 Antigen Labs noted Assessment: 06/17/17 14:52 Withdrawal symptoms Plan: Continue detox ambien prn for sleep
[2017-06-17] MEDS ORDERED: ZOLPIDEM TARTRATE 5 MG TABLET PO PRN (22:00)
[2017-06-17] MEDS: THIAMINE HCL 100 MG TABLET (FP) PO SCH (22:12)
[2017-06-18] MEDS: ACETAMINOPHEN 325 MG TABLET (FP) PO PRN (05:28)
[2017-06-18] MEDS: hydrOXYzine PAMOATE 50 MG CAPSULE (FP) PO PRN (05:30)
[2017-06-18] MEDS ORDERED: METHADONE HCL 5 MG TABLET (FOR DETOX USE ONLY) PO SCH (06:00)
[2017-06-18 09:11] VITALS: BP 126/87; PULSE 90; TEMP 96.8
--- NOTE | 2017-06-18 09:17 | DS ---
[facility] Detox Discharge Summary Admission Date: 06/13/17 Discharge Date: 06/18/17 - History Present History: Alcohol Dependence, Cocaine Dependence, Opioid Dependence Pertinent Past History: Hep C GERD - Physical Exam Results Vital Signs: Vital Signs Temperature 96.8 F L 06/18/17 09:10 Pulse Rate 90 06/18/17 09:10 Respiratory Rate 20 06/18/17 09:10 Blood Pressure 126/87 06/18/17 09:10 O2 Sat by Pulse Oximetry (%) Pertinent Admission Physical Exam Findings: Withdrawal sx Laboratory Last Values WBC 3.8 K/mm3 (4.0-10.0) L 06/14/17 07:30 RBC 4.74 M/mm3 (4.00-5.60) 06/14/17 07:30 Hgb 14.3 GM/dL (11.7-16.9) D 06/14/17 07:30 Hct 42.4 % (35.4-49) 06/14/17 07:30 MCV 89.4 fl (80-96) 06/14/17 07:30 MCH 30.2 pg (25.7-33.7) 06/14/17 07:30 MCHC 33.7 g/dl (32.0-35.9) 06/14/17 07:30 RDW 13.7 % (11.9-15.9) 06/14/17 07:30 Plt Count 219 K/MM3 (134-434) 06/14/17 07:30 MPV 8.9 fl (7.5-11.1) 06/14/17 07:30 Sodium 140 mmol/L (136-145) 06/14/17 07:30 Potassium 4.4 mmol/L (3.5-5.1) 06/14/17 07:30 Chloride 109 mmol/L (98-107) H 06/14/17 07:30 Carbon Dioxide 25 mmol/L (21-32) 06/14/17 07:30 Anion Gap 6 (8-16) L 06/14/17 07:30 BUN 12 mg/dL (7-18) 06/14/17 07:30 Creatinine 0.9 mg/dL (0.7-1.3) 06/14/17 07:30 Creat Clearance w eGFR > 60 (>60) 06/14/17 07:30 Random Glucose 93 mg/dL (74-106) D 06/14/17 07:30 Calcium 8.8 mg/dL (8.5-10.1) 06/14/17 07:30 Total Bilirubin 0.3 mg/dL (0.2-1.0) D 06/14/17 07:30 AST 35 U/L (15-37) D 06/14/17 07:30 ALT 49 U/L (12-78) D 06/14/17 07:30 Alkaline Phosphatase 75 U/L (45-117) D 06/14/17 07:30 Total Protein 6.4 g/dl (6.4-8.2) D 06/14/17 07:30 Albumin 2.7 g/dl (3.4-5.0) L D 06/14/17 07:30 Urine Color Yellow 06/13/17 20:50 Urine Appearance Slcloudy 06/13/17 20:50 Urine pH 5.0 (5.0-8.0) 06/13/17 20:50 Ur Specific [place] 1.015 (1.005-1.025) 06/13/17 20:50 Urine Protein Negative (NEGATIVE) 06/13/17 20:50 Urine Glucose (UA) Negative (NEGATIVE) 06/13/17 20:50 Urine Ketones Negative (NEGATIVE) 06/13/17 20:50 Urine Blood Negative (NEGATIVE) 06/13/17 20:50 Urine Nitrite Negative (NEGATIVE) 06/13/17 20:50 Urine Bilirubin Negative (NEGATIVE) 06/13/17 20:50 Urine Urobilinogen Negative mg/dL (0.2-1.0) 06/13/17 20:50 RPR Titer Reactive 1:1 (NONREACTIVE) H 06/14/17 07:30 T.pallidum Ab (MHA) Previously reactive (NONREACTIVE) 06/14/17 07:30 HIV 1&2 Antibody Screen Negative 06/14/17 07:30 HIV P24 Antigen Negative 06/14/17 07:30 Labs noted - Treatment Hospital Course: Detox Protocol Followed, Detoxed Safely, Responded well, Discharged Condition Good, Rehab Referral Accepted Patient has Accepted a Rehab Referral to: [facility] - Medication Discharge Medications: Ambulatory Orders NK [No Known Home Medication] 06/13/17 - Diagnosis (1) Alcohol dependence with uncomplicated withdrawal Current Visit: Yes Status: Acute (2) Cocaine dependence, uncomplicated Current Visit: Yes Status: Acute (3) Nicotine dependence Current Visit: Yes Status: Acute Qualifiers: Nicotine product type: cigarettes Substance use status: in withdrawal Qualified Code(s): F17.213 - Nicotine dependence, cigarettes, with withdrawal (4) Opioid dependence with withdrawal Current Visit: Yes Status: Acute (5) GERD (gastroesophageal reflux disease) Current Visit: Yes Status: Chronic Qualifiers: Esophagitis presence: without esophagitis Qualified Code(s): K21.9 - Gastro-esophageal reflux disease without esophagitis (6) Hepatitis C carrier Current Visit: Yes Status: Chronic (7) Drug-induced mood disorder Current Visit: Yes Status: Suspected - AMA Did Patient Leave Against Medical Advice: No
[2017-06-18] MEDS: PRENATAL VITAMINS W/ FOLIC ACID TABLET (FP) PO SCH (10:48)
[2017-06-18] MEDS: RANITIDINE HCL 150 MG TABLET (FP) PO SCH (10:48)
[2017-06-18] MEDS: NICOTINE 21 MG/24 HOURS TOPICAL PATCH TD SCH (10:49)
[2017-06-18] MEDS: CYCLOBENZAPRINE HCL 10 MG TABLET (FP) PO PRN (10:51)
== END 2017-06-18 12:25 | disposition home or self-care (01) | DRG 773 ==
LOC: YASAS 11:07 → Y3N 17:33
PROVIDERS: ADMIT Internal Medicine; ATTEND Internal Medicine
PROC: HZ2ZZZZ Detoxification Services for Substance Abuse Treatment (ICD-10-PCS; principal; 2017-06-13)
DX: F11.23 Opioid dependence with withdrawal (principal); F10.230 Alcohol dependence with withdrawal, uncomplicated; F14.20 Cocaine dependence, uncomplicated; F17.213 Nicotine dependence, cigarettes, with withdrawal; F19.24 Other psychoactive substance dependence with psychoactive substance-induced mood disorder; K21.9 Gastro-esophageal reflux disease without esophagitis; B18.2 Chronic viral hepatitis C; Z87.438 Personal history of other diseases of male genital organs; Z87.898 Personal history of other specified conditions
CPT/HCPCS: 36415; 80053; 81003; 85027; 86593; 86780; 87389; 93005; 93010

== ENCOUNTER 2018-04-05 14:09 | Inpatient (IN) | payer OTHER ==
[2018-04-05 14:36] VITALS: BMI 24.7
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
[2018-04-05] MEDS ORDERED: MENTHOL/PHENOL 1 EACH UD MM PRN (19:04)
[2018-04-05] MEDS ORDERED: MAGNESIUM CITRATE 300 ML BOTTLE PO PRN (19:04)
[2018-04-05] MEDS ORDERED: LOPERAMIDE HCL 2 MG CAPSULE PO PRN (19:04)
[2018-04-05] MEDS ORDERED: guaiFENesin/D-METHORPHAN HB 10 ML UNIT-DOSE CUPS PO PRN (19:04)
[2018-04-05] MEDS ORDERED: MAGNESIUM HYDROX 2400MG/30ML ORAL SUSPENSION 30 ML CUP PO PRN (19:04)
[2018-04-05] MEDS ORDERED: NICOTINE POLACRILEX 4 MG GUM BUC PRN (19:04)
[2018-04-05] MEDS ORDERED: P-EPHED 60MG/TRIPROLIDI 2.5MG TABLET PO PRN (19:04)
[2018-04-05] MEDS ORDERED: cloNIDine HCL 0.1 MG TABLET PO PRN (19:09)
[2018-04-05] MEDS: NICOTINE 21 MG/24 HOURS TOPICAL PATCH TD SCH (23:03)
[2018-04-05] MEDS: CYCLOBENZAPRINE HCL 10 MG TABLET (FP) PO SCH (23:03)
[2018-04-05] MEDS: THIAMINE HCL 100 MG TABLET (FP) PO SCH (23:04)
[2018-04-05] MEDS: chlordiazePOXIDE HCL 25 MG CAPSULE PO SCH (23:04)
[2018-04-05] MEDS: amLODIPine BESYLATE 5 MG TABLET (FP) PO SCH (23:04)
--- NOTE | 2018-04-06 00:28 | PN ---
[facility] Progress Note Note: Called by nurse because patient's B/P was 185/109. Patient was to receive a standing order for Clonidine but did not receive. Patient has no chest pain, SOB or neuro changes. Vital Signs - 24 hr 04/05/18 04/05/18 04/06/18 14:32 22:25 00:19 Temperature 96.6 F L 97.9 F Pulse Rate 76 70 78 Respiratory 19 18 20 Rate Blood Pressure 171/98 185/109 166/104 Order written for one dose of Clonidine 0.2 mg. Nurse will continue to monitor B /P and notify provider of any increase or any cardiac or neuro changes.
[2018-04-06] MEDS ORDERED: cloNIDine HCL 0.1 MG TABLET PO ONE (00:33)
[2018-04-06] MEDS: chlordiazePOXIDE HCL 25 MG CAPSULE PO SCH ×4 (05:14→22:46)
[2018-04-06] MEDS: CYCLOBENZAPRINE HCL 10 MG TABLET (FP) PO SCH ×3 (05:14→22:47)
[2018-04-06] MEDS: amLODIPine BESYLATE 5 MG TABLET (FP) PO SCH (10:40)
[2018-04-06] MEDS: PRENATAL VITAMINS W/ FOLIC ACID TABLET (FP) PO SCH (10:40)
[2018-04-06] MEDS: NICOTINE 21 MG/24 HOURS TOPICAL PATCH TD SCH (10:40)
[2018-04-06] MEDS: IBUPROFEN 400 MG TABLET (FP) PO PRN (10:44)
[2018-04-06 10:46] LABS: HEMATOCRIT 41.5 % (35.4-49); HEMOGLOBIN 14.2 GM/dL (11.7-16.9); MCH 30.5 pg (25.7-33.7); MCHC 34.3 g/dl (32.0-35.9); MEAN CELL VOLUME 88.9 fl (80-96); MEAN PLT VOLUME 8.4 fl (7.5-11.1); PLATELET COUNT 258 K/MM3 (134-434); RBC 4.67 M/mm3 (4.00-5.60); WHITE BLOOD COUNT 3.6 K/mm3 (4.0-10.0)
[2018-04-06 10:57] LABS: CHLORIDE 107 mmol/L (98-107); POTASSIUM 4.1 mmol/L (3.5-5.1); SODIUM 142 mmol/L (136-145)
[2018-04-06 11:11] LABS: ALBUMIN 3.1 g/dl (3.4-5.0); ALK PHOS 93 U/L (45-117); ANION GAP 7 (8-16); BILIRUBIN,TOTAL 0.3 mg/dL (0.2-1.0); BLOOD UREA NITROGEN 10 mg/dL (7-18); CALCIUM 9.4 mg/dL (8.5-10.1); CO2 28 mmol/L (21-32); CREATININE 0.9 mg/dL (0.7-1.3); GLUCOSE,RANDOM 93 mg/dL (74-106); SGOT/AST 52 U/L (15-37); SGPT/ALT 56 U/L (12-78); TOT PROT 7.1 g/dl (6.4-8.2)
[2018-04-06] MEDS: cloNIDine HCL 0.1 MG TABLET PO PRN (14:31)
[2018-04-06] MEDS: chlordiazePOXIDE HCL 25 MG CAPSULE PO PRN (14:34)
[2018-04-06 15:37] LABS: RPR REACTIVE 1:1 (NONREACTIVE)
[2018-04-06 15:39] LABS: TREPONEMA ANTIBODY PREVIOUSLY REACTIVE (NONREACTIVE)
--- NOTE | 2018-04-06 19:19 | CONSULT ---
[facility] Psychiatric Consult - Data Date of interview: 04/06/18 Admission source: [facility] Identifying data: Patient refused psychiatric interview." I don't have psychiatric issue to discuss.I don't need to talk to psychiatrists." Examination is waived due to patient's refusal to converse with psychiatric media consultant outside sales.
[2018-04-06] MEDS ORDERED: METHADONE HCL 10 MG TABLET (FOR DETOX USE ONLY) PO ONE ×2 (20:33→23:00)
--- NOTE | 2018-04-06 20:37 | PN ---
[facility] Progress Note Note: Methadone regimen included in the detox regimen because pt is here for opiates/ alcohol detox. Utox positive for opiates
--- NOTE | 2018-04-06 22:07 | PN ---
[facility] CIWA - CIWA Score Nausea/Vomitin Muscle Tremors: 3 Anxiety: 2 Agitation: 3 Paroxysmal Sweats: 3 Orientation: 0-Oriented Tacttile Disturbances: 0-None Auditory Disturbances: 0-None Visual Disturbances: 0-None Headache: 0-None Present CIWA-Ar Total Score: 13 S COWS - Scale Resting Pulse: 0= [place] 80 or Below Sweatin=Flushed/Facial Moisture Restless Observation: 1= Difficult to Sit Still Pupil Size: 0= Normal to Room Light Bone or Joint Aches: 1= Mild Discomfort Runny Nose/ Eye Tearin= Nasal Congestion GI Upset > 30mins: 1= Stomach Cramp Tremor Observation of Outstretched Hands: 2= Slight Tremor Visible Yawning Observation: 1= 1-2x During Session Anxiety or Irritability: 2=Irritable/Anxious Goose Flesh Skin: 0=Smooth Skin COWS Score: 11 [facility] Progress Note (SOAP) Subjective: Shakes sleep disturbance sweats Objective: 04/06/18 21:50 Sleeping but arouses to be A & O x 3 In no acute distress Vital Signs Vital Signs Temperature 98.4 F 04/06/18 18:02 Pulse Rate 79 04/06/18 18:02 Respiratory Rate 16 04/06/18 18:02 Blood Pressure 176/108 04/06/18 18:02 O2 Sat by Pulse Oximetry (%) Assessment: 04/06/18 withdrawal sx Plan: continue detox
[2018-04-06] MEDS: THIAMINE HCL 100 MG TABLET (FP) PO SCH (22:46)
[2018-04-06] MEDS: MELATONIN 5 MG TABLETS PO PRN (22:50)
[2018-04-07] MEDS: chlordiazePOXIDE HCL 25 MG CAPSULE PO SCH ×3 (05:59→17:11)
[2018-04-07] MEDS: CYCLOBENZAPRINE HCL 10 MG TABLET (FP) PO SCH ×3 (05:59→23:06)
[2018-04-07] MEDS: IBUPROFEN 400 MG TABLET (FP) PO PRN (06:01)
[2018-04-07] MEDS: cloNIDine HCL 0.1 MG TABLET PO PRN (07:07)
[2018-04-07] MEDS ORDERED: METHADONE HCL 10 MG TABLET (FOR DETOX USE ONLY) PO ONE (10:00)
[2018-04-07] MEDS: amLODIPine BESYLATE 5 MG TABLET (FP) PO SCH (10:11)
[2018-04-07] MEDS: NICOTINE 21 MG/24 HOURS TOPICAL PATCH TD SCH (10:11)
[2018-04-07] MEDS: PRENATAL VITAMINS W/ FOLIC ACID TABLET (FP) PO SCH (10:11)
[2018-04-07] MEDS: ACETAMINOPHEN 325 MG TABLET (FP) PO PRN ×2 (10:12→14:16)
--- NOTE | 2018-04-07 11:45 | PN ---
S CIWA - CIWA Score Nausea/Vomitin-No Nausea/No Vomiting Muscle Tremors: 3 Anxiety: 2 Agitation: 2 Paroxysmal Sweats: 1-Minimal Palms Moist Orientation: 0-Oriented Tacttile Disturbances: 2-Mild Itch/Numbness/Burn Auditory Disturbances: 0-None Visual Disturbances: 0-None Headache: 2-Mild CIWA-Ar Total Score: 12 [facility] COWS - Scale Resting Pulse: 0= [place] 80 or Below Sweatin= Chills/Flushing Restless Observation: 1= Difficult to Sit Still Pupil Size: 0= Normal to Room Light Bone or Joint Aches: 2= Severe Diffuse Aches Runny Nose/ Eye Tearin= Runny Nose/Eyes GI Upset > 30mins: 1= Stomach Cramp Tremor Observation of Outstretched Hands: 2= Slight Tremor Visible Yawning Observation: 2= >3x During Session Anxiety or Irritability: 2=Irritable/Anxious Goose Flesh Skin: 0=Smooth Skin COWS Score: 13 S Progress Note (SOAP) Subjective: tremor sweat restlessness anxiety body aches joints pain Objective: 04/07/18 11:41 Vital Signs Temperature 98.2 F 04/07/18 09:21 Pulse Rate 63 04/07/18 09:21 Respiratory Rate 18 04/07/18 09:21 Blood Pressure 172/101 04/07/18 09:21 O2 Sat by Pulse Oximetry (%) Laboratory Last Values WBC 3.6 K/mm3 (4.0-10.0) L 04/06/18 07:50 RBC 4.67 M/mm3 (4.00-5.60) 04/06/18 07:50 Hgb 14.2 GM/dL (11.7-16.9) 04/06/18 07:50 Hct 41.5 % (35.4-49) 04/06/18 07:50 MCV 88.9 fl (80-96) 04/06/18 07:50 MCH 30.5 pg (25.7-33.7) 04/06/18 07:50 MCHC 34.3 g/dl (32.0-35.9) 04/06/18 07:50 RDW 14.0 % (11.9-15.9) 04/06/18 07:50 Plt Count 258 K/MM3 (134-434) 04/06/18 07:50 MPV 8.4 fl (7.5-11.1) 04/06/18 07:50 Sodium 142 mmol/L (136-145) 04/06/18 07:50 Potassium 4.1 mmol/L (3.5-5.1) 04/06/18 07:50 Chloride 107 mmol/L (98-107) 04/06/18 07:50 Carbon Dioxide 28 mmol/L (21-32) 04/06/18 07:50 Anion Gap 7 (8-16) L 04/06/18 07:50 BUN 10 mg/dL (7-18) 04/06/18 07:50 Creatinine 0.9 mg/dL (0.7-1.3) 04/06/18 07:50 Creat Clearance w eGFR > 60 (>60) 04/06/18 07:50 POC Glucometer 313 UNITS (80-120) 04/06/18 07:47 Random Glucose 93 mg/dL (74-106) 04/06/18 07:50 Calcium 9.4 mg/dL (8.5-10.1) 04/06/18 07:50 Total Bilirubin 0.3 mg/dL (0.2-1.0) 04/06/18 07:50 AST 52 U/L (15-37) H D 04/06/18 07:50 ALT 56 U/L (12-78) 04/06/18 07:50 Alkaline Phosphatase 93 U/L (45-117) 04/06/18 07:50 Total Protein 7.1 g/dl (6.4-8.2) 04/06/18 07:50 Albumin 3.1 g/dl (3.4-5.0) L 04/06/18 07:50 RPR Titer Reactive 1:1 (NONREACTIVE) H 04/06/18 07:50 T.pallidum Ab (MHA) Previously reactive (NONREACTIVE) 04/06/18 07:50 HIV 1&2 Antibody Screen Negative 04/06/18 07:50 HIV P24 Antigen Negative 04/06/18 07:50 lab noted stated syphilis treated "more than 10 years ago" Assessment: 04/07/18 11:45 withdrawal sx Plan: continue detox
[2018-04-07] MEDS ORDERED: amLODIPine BESYLATE 5 MG TABLET (FP) PO ONE (11:47)
[2018-04-07] MEDS: chlordiazePOXIDE HCL 25 MG CAPSULE PO PRN (14:14)
[2018-04-07] MEDS: THIAMINE HCL 100 MG TABLET (FP) PO SCH (23:05)
[2018-04-07] MEDS: chlordiazePOXIDE 5 MG CAPSULE PO SCH (23:06)
[2018-04-07] MEDS: MELATONIN 5 MG TABLETS PO PRN (23:09)
[2018-04-08] MEDS: chlordiazePOXIDE 5 MG CAPSULE PO SCH ×3 (05:43→17:37)
[2018-04-08] MEDS: CYCLOBENZAPRINE HCL 10 MG TABLET (FP) PO SCH ×3 (05:43→22:44)
[2018-04-08 09:53] LABS: URINE APPEARANCE CLEAR; URINE BILIRUBIN NEGATIVE (<2.0 mg/dL); URINE COLOR STRAW; URINE GLUCOSE (UA) NEGATIVE (NEGATIVE); URINE KETONE NEGATIVE (NEGATIVE); URINE LEUK ESTERASE NEGATIVE (NEGATIVE); URINE NITRITE NEGATIVE (NEGATIVE); URINE PROTEIN NEGATIVE (NEGATIVE); URINE UROBILINOGEN NEGATIVE mg/dL (0.2-1.0)
[2018-04-08] MEDS ORDERED: METHADONE HCL 5 MG TABLET (FOR DETOX USE ONLY) PO ONE (10:00)
[2018-04-08] MEDS: cloNIDine HCL 0.1 MG TABLET PO PRN (10:16)
[2018-04-08] MEDS: amLODIPine BESYLATE 5 MG TABLET (FP) PO SCH (10:17)
[2018-04-08] MEDS: NICOTINE 21 MG/24 HOURS TOPICAL PATCH TD SCH (10:17)
[2018-04-08] MEDS: PRENATAL VITAMINS W/ FOLIC ACID TABLET (FP) PO SCH (10:17)
--- NOTE | 2018-04-08 11:39 | PN ---
[facility] Progress Note (SOAP) Subjective: body aches sweat tremor gi distress trouble sleep at night Objective: 04/08/18 11:37 Vital Signs Temperature 99 F 04/08/18 10:08 Pulse Rate 107 H 04/08/18 10:08 Respiratory Rate 16 04/08/18 10:08 Blood Pressure 149/93 04/08/18 10:08 O2 Sat by Pulse Oximetry (%) Laboratory Last Values WBC 3.6 K/mm3 (4.0-10.0) L 04/06/18 07:50 RBC 4.67 M/mm3 (4.00-5.60) 04/06/18 07:50 Hgb 14.2 GM/dL (11.7-16.9) 04/06/18 07:50 Hct 41.5 % (35.4-49) 04/06/18 07:50 MCV 88.9 fl (80-96) 04/06/18 07:50 MCH 30.5 pg (25.7-33.7) 04/06/18 07:50 MCHC 34.3 g/dl (32.0-35.9) 04/06/18 07:50 RDW 14.0 % (11.9-15.9) 04/06/18 07:50 Plt Count 258 K/MM3 (134-434) 04/06/18 07:50 MPV 8.4 fl (7.5-11.1) 04/06/18 07:50 Sodium 142 mmol/L (136-145) 04/06/18 07:50 Potassium 4.1 mmol/L (3.5-5.1) 04/06/18 07:50 Chloride 107 mmol/L (98-107) 04/06/18 07:50 Carbon Dioxide 28 mmol/L (21-32) 04/06/18 07:50 Anion Gap 7 (8-16) L 04/06/18 07:50 BUN 10 mg/dL (7-18) 04/06/18 07:50 Creatinine 0.9 mg/dL (0.7-1.3) 04/06/18 07:50 Creat Clearance w eGFR > 60 (>60) 04/06/18 07:50 POC Glucometer 313 UNITS (80-120) 04/06/18 07:47 Random Glucose 93 mg/dL (74-106) 04/06/18 07:50 Calcium 9.4 mg/dL (8.5-10.1) 04/06/18 07:50 Total Bilirubin 0.3 mg/dL (0.2-1.0) 04/06/18 07:50 AST 52 U/L (15-37) H D 04/06/18 07:50 ALT 56 U/L (12-78) 04/06/18 07:50 Alkaline Phosphatase 93 U/L (45-117) 04/06/18 07:50 Total Protein 7.1 g/dl (6.4-8.2) 04/06/18 07:50 Albumin 3.1 g/dl (3.4-5.0) L 04/06/18 07:50 Urine Color Straw 04/08/18 08:30 Urine Appearance Clear 04/08/18 08:30 Urine pH 6.0 (5.0-8.0) 04/08/18 08:30 Ur Specific [place] 1.009 (1.001-1.035) 04/08/18 08:30 Urine Protein Negative (NEGATIVE) 04/08/18 08:30 Urine Glucose (UA) Negative (NEGATIVE) 04/08/18 08:30 Urine Ketones Negative (NEGATIVE) 04/08/18 08:30 Urine Blood Negative (NEGATIVE) 04/08/18 08:30 Urine Nitrite Negative (NEGATIVE) 04/08/18 08:30 Urine Bilirubin Negative (<2.0 mg/dL) 04/08/18 08:30 Urine Urobilinogen Negative mg/dL (0.2-1.0) 04/08/18 08:30 Ur Leukocyte Esterase Negative (NEGATIVE) 04/08/18 08:30 RPR Titer Reactive 1:1 (NONREACTIVE) H 04/06/18 07:50 T.pallidum Ab (MHA) Previously reactive (NONREACTIVE) 04/06/18 07:50 HIV 1&2 Antibody Screen Negative 04/06/18 07:50 HIV P24 Antigen Negative 04/06/18 07:50 lab noted Assessment: 04/08/18 11:38 withdrawal sx anxiety Plan: continue detox psychiatric referral
--- NOTE | 2018-04-08 12:32 | CONSULT ---
[facility] Psychiatric Consult - Data Date of interview: 04/08/18 Admission source: [facility] Identifying data: This is 53 years old male with nop psychiatric hospitalization history, intoxicated with Alcohol, Heroin Cocaine and Nicortine , reported withdrawal symtoms from Alcohol, Heroin and Cocaine and was taking to [facility] for detox. Starting from today as per nursing report patient complaining for depressed mood, denies suicidal, homicidal iderationms and asking to start medications aid for depression. Substance Abuse History: Smoking history: Current every day smoker. Have you smoked in the past 12 months: Yes. Aproximately how many cigarettes per day: 20. Cigars Per Day: 0. Hx Chewing Tobacco Use: No. Initiated information on smoking cessation: Yes. 'Breaking Loose' booklet given: 04/05/18. - Substance & Tx. History. Hx Alcohol Use: Yes (RUM/BEER). Hx Substance Use: Yes (HEROIN/ COCAINE). Substance Use Type: Alcohol, Cocaine, Heroin. Hx Substance Use Treatment: Yes (LAST TX AT [facility]). - Substances Abused. Alcohol. Route: Oral. Frequency: Daily. Amount used: liquor- 2 pint, beer- 1 six pack,. Age of first use: 15. Date of Last Use: 04/05/18. Heroin. Route: Injection. Frequency: Daily. Amount used: 8 bags. Age of first use: 20. Date of Last Use : 04/05/18. Cocaine. Route: Injection. Frequency: Daily. Amount used: 8 bags. Age of first use: 20. Date of Last Use: 04/05/18 Medical History: HepC+, GERD, HTN, Psychiatric History: PATIENT REPORTS HISTORY OF DEPRESSION IN THE PAST, REPORTS TAKING ANTIDEPRESSNATS IN THS PAST WITH GOOD RESPONSE, REPORTS NO MEDICATIONS TAKING PRIOR TO ADMISSION. PATIENT DENIES ASUICIDAL, HOMICIDAL IDERATION Physical/Sexual Abuse/Trauma History: Denies Additional Comment: Lexapro 10mg poqd Mental Status Exam - Mental Status Exam Alert and Oriented to: Person Cognitive Function: Fair Patient Appearance: Well Groomed Mood: Sad Affect: Mood Congruent Patient Behavior: Cooperative Speech Pattern: Appropriate Voice Loudness: Mildly Soft/Quiet Thought Process: Goal Oriented Thought Disorder: Being Controlled Hallucinations: Denies Suicidal Ideation: Denies Homicidal Ideation: Denies Insight/Judgement: Fair Sleep: Difficulty falling asleep Appetite: Fair Muscle strength/Tone: Normal Gait/Station: Normal Additional Comments: Lexapro 10mg poqd Psychiatric Findings - Problem List ([place] 1, 2,3) (1) Alcohol dependence with uncomplicated withdrawal Current Visit: Yes Status: Acute (2) Cocaine dependence, uncomplicated Current Visit: Yes Status: Acute (3) Nicotine dependence Current Visit: Yes Status: Acute Qualifiers: Nicotine product type: cigarettes Substance use status: in withdrawal Qualified Code(s): F17.213 - Nicotine dependence, cigarettes, with withdrawal (4) Opioid dependence with withdrawal Current Visit: Yes Status: Acute (5) GERD (gastroesophageal reflux disease) Current Visit: Yes Status: Chronic Qualifiers: Esophagitis presence: without esophagitis Qualified Code(s): K21.9 - Gastro -esophageal reflux disease without esophagitis (6) HTN (hypertension) Current Visit: Yes Status: Chronic Qualifiers: Hypertension type: essential hypertension Qualified Code(s): I10 - Essential (primary) hypertension (7) Elevated BP Current Visit: Yes Status: Suspected (8) Alcohol dependence Current Visit: No Status: Acute Qualifiers: Substance use status: uncomplicated Qualified Code(s): F10.20 - Alcohol dependence, uncomplicated (9) Cocaine dependence Current Visit: No Status: Acute Qualifiers: Substance use status: uncomplicated Qualified Code(s): F14.20 - Cocaine dependence, uncomplicated (10) Low back pain Current Visit: No Status: Acute Qualifiers: Chronicity: acute Back pain laterality: bilateral Sciatica presence: without sciatica Qualified Code(s): M54.5 - Low back pain (11) Weight loss Current Visit: No Status: Acute (12) Drug-induced mood disorder Current Visit: No Status: Suspected - Initial Treatment Plan Initial Treatment Plan: Lexapro 10mg poqd
[2018-04-08] MEDS: chlordiazePOXIDE HCL 25 MG CAPSULE PO PRN (13:24)
[2018-04-08] MEDS: ESCITALOPRAM OXALATE 10 MG TABLET (FP) PO SCH (13:24)
[2018-04-08] MEDS: MAG HYDROX/AL HYDROX/SIMETH 30 ML UNIT-DOSE CUP PO PRN (14:01)
--- NOTE | 2018-04-08 20:18 | EKG ---
Test Reason : Blood Pressure : / mmHG Vent. Rate : 065 BPM Atrial Rate : 065 BPM P-R Int : 160 ms QRS Dur : 086 ms QT Int : 432 ms P-R-T Axes : 059 029 023 degrees QTc Int : 449 ms NORMAL SINUS RHYTHM NORMAL ECG WHEN COMPARED WITH ECG OF 13-JUN-2017 19:15, NO SIGNIFICANT CHANGE WAS FOUND Confirmed by MD NADIA, GINI ([id number]) on 04/08/2018 8:17:58 PM Referred By: Confirmed By:GINI ZUNIGA MD
[2018-04-08] MEDS: THIAMINE HCL 100 MG TABLET (FP) PO SCH (22:44)
[2018-04-08] MEDS: chlordiazePOXIDE HCL 10 MG CAPSULE PO SCH (22:44)
[2018-04-08] MEDS: MELATONIN 5 MG TABLETS PO PRN (22:46)
[2018-04-09] MEDS: CYCLOBENZAPRINE HCL 10 MG TABLET (FP) PO SCH ×3 (05:15→22:20)
[2018-04-09] MEDS: chlordiazePOXIDE HCL 10 MG CAPSULE PO SCH ×3 (05:15→17:02)
[2018-04-09] MEDS ORDERED: METHADONE HCL 5 MG TABLET (FOR DETOX USE ONLY) PO ONE (10:00)
[2018-04-09] MEDS: NICOTINE 21 MG/24 HOURS TOPICAL PATCH TD SCH (10:09)
[2018-04-09] MEDS: amLODIPine BESYLATE 5 MG TABLET (FP) PO SCH (10:09)
[2018-04-09] MEDS: PRENATAL VITAMINS W/ FOLIC ACID TABLET (FP) PO SCH (10:09)
[2018-04-09] MEDS: ESCITALOPRAM OXALATE 10 MG TABLET (FP) PO SCH (10:09)
[2018-04-09] MEDS: IBUPROFEN 400 MG TABLET (FP) PO PRN ×2 (10:12→22:20)
[2018-04-09] MEDS: MAG HYDROX/AL HYDROX/SIMETH 30 ML UNIT-DOSE CUP PO PRN ×2 (11:39→19:54)
--- NOTE | 2018-04-09 11:53 | PN ---
S Progress Note (SOAP) Subjective: FEELING BETTER NO TREMOR NO BODY ACHE SLEEP BETTER AT NIGHT NO GI DISTRESS Objective: 04/09/18 11:52 Vital Signs Temperature 95.9 F L 04/09/18 09:15 Pulse Rate 104 H 04/09/18 09:15 Respiratory Rate 20 04/09/18 09:15 Blood Pressure 140/67 04/09/18 09:15 O2 Sat by Pulse Oximetry (%) Laboratory Last Values WBC 3.6 K/mm3 (4.0-10.0) L 04/06/18 07:50 RBC 4.67 M/mm3 (4.00-5.60) 04/06/18 07:50 Hgb 14.2 GM/dL (11.7-16.9) 04/06/18 07:50 Hct 41.5 % (35.4-49) 04/06/18 07:50 MCV 88.9 fl (80-96) 04/06/18 07:50 MCH 30.5 pg (25.7-33.7) 04/06/18 07:50 MCHC 34.3 g/dl (32.0-35.9) 04/06/18 07:50 RDW 14.0 % (11.9-15.9) 04/06/18 07:50 Plt Count 258 K/MM3 (134-434) 04/06/18 07:50 MPV 8.4 fl (7.5-11.1) 04/06/18 07:50 Sodium 142 mmol/L (136-145) 04/06/18 07:50 Potassium 4.1 mmol/L (3.5-5.1) 04/06/18 07:50 Chloride 107 mmol/L (98-107) 04/06/18 07:50 Carbon Dioxide 28 mmol/L (21-32) 04/06/18 07:50 Anion Gap 7 (8-16) L 04/06/18 07:50 BUN 10 mg/dL (7-18) 04/06/18 07:50 Creatinine 0.9 mg/dL (0.7-1.3) 04/06/18 07:50 Creat Clearance w eGFR > 60 (>60) 04/06/18 07:50 POC Glucometer 313 UNITS (80-120) 04/06/18 07:47 Random Glucose 93 mg/dL (74-106) 04/06/18 07:50 Calcium 9.4 mg/dL (8.5-10.1) 04/06/18 07:50 Total Bilirubin 0.3 mg/dL (0.2-1.0) 04/06/18 07:50 AST 52 U/L (15-37) H D 04/06/18 07:50 ALT 56 U/L (12-78) 04/06/18 07:50 Alkaline Phosphatase 93 U/L (45-117) 04/06/18 07:50 Total Protein 7.1 g/dl (6.4-8.2) 04/06/18 07:50 Albumin 3.1 g/dl (3.4-5.0) L 04/06/18 07:50 Urine Color Straw 04/08/18 08:30 Urine Appearance Clear 04/08/18 08:30 Urine pH 6.0 (5.0-8.0) 04/08/18 08:30 Ur Specific [place] 1.009 (1.001-1.035) 04/08/18 08:30 Urine Protein Negative (NEGATIVE) 04/08/18 08:30 Urine Glucose (UA) Negative (NEGATIVE) 04/08/18 08:30 Urine Ketones Negative (NEGATIVE) 04/08/18 08:30 Urine Blood Negative (NEGATIVE) 04/08/18 08:30 Urine Nitrite Negative (NEGATIVE) 04/08/18 08:30 Urine Bilirubin Negative (<2.0 mg/dL) 04/08/18 08:30 Urine Urobilinogen Negative mg/dL (0.2-1.0) 04/08/18 08:30 Ur Leukocyte Esterase Negative (NEGATIVE) 04/08/18 08:30 RPR Titer Reactive 1:1 (NONREACTIVE) H 04/06/18 07:50 T.pallidum Ab (MHA) Previously reactive (NONREACTIVE) 04/06/18 07:50 HIV 1&2 Antibody Screen Negative 04/06/18 07:50 HIV P24 Antigen Negative 04/06/18 07:50 LAB NOTED [facility] Assessment: 04/09/18 11:53 MILD WITHDRAWAL SX Plan: MEDICALLY SUPERVISED DETOX
[2018-04-09] MEDS: ACETAMINOPHEN 325 MG TABLET (FP) PO PRN (17:04)
[2018-04-09] MEDS: THIAMINE HCL 100 MG TABLET (FP) PO SCH (22:20)
[2018-04-09] MEDS: cloNIDine HCL 0.1 MG TABLET PO PRN (22:20)
[2018-04-09] MEDS: MELATONIN 5 MG TABLETS PO PRN (22:21)
[2018-04-10] MEDS: CYCLOBENZAPRINE HCL 10 MG TABLET (FP) PO SCH (05:22)
[2018-04-10] MEDS: ACETAMINOPHEN 325 MG TABLET (FP) PO PRN (05:24)
--- NOTE | 2018-04-10 08:53 | DS ---
[facility] Detox Discharge Summary Admission Date: 04/05/18 Discharge Date: 04/10/18 - History Present History: Alcohol Dependence, Opioid Dependence Additional Comments: 53 years old male admitted on 04/05/18 for alcohol and opiate withdrawal sx completed alcohol and opiate detox regimen tolerated well denies alcohol and opiate withdrawal sx alert oriented x 3 no acute distress aftercare [facility] - Physical Exam Results Vital Signs: Vital Signs Temperature 96.1 F L 04/10/18 07:49 Pulse Rate 65 04/10/18 07:49 Respiratory Rate 18 04/10/18 07:49 Blood Pressure 120/68 04/10/18 07:49 O2 Sat by Pulse Oximetry (%) Pertinent Admission Physical Exam Findings: alcohol and opiate withdrawal sx Laboratory Last Values WBC 3.6 K/mm3 (4.0-10.0) L 04/06/18 07:50 RBC 4.67 M/mm3 (4.00-5.60) 04/06/18 07:50 Hgb 14.2 GM/dL (11.7-16.9) 04/06/18 07:50 Hct 41.5 % (35.4-49) 04/06/18 07:50 MCV 88.9 fl (80-96) 04/06/18 07:50 MCH 30.5 pg (25.7-33.7) 04/06/18 07:50 MCHC 34.3 g/dl (32.0-35.9) 04/06/18 07:50 RDW 14.0 % (11.9-15.9) 04/06/18 07:50 Plt Count 258 K/MM3 (134-434) 04/06/18 07:50 MPV 8.4 fl (7.5-11.1) 04/06/18 07:50 Sodium 142 mmol/L (136-145) 04/06/18 07:50 Potassium 4.1 mmol/L (3.5-5.1) 04/06/18 07:50 Chloride 107 mmol/L (98-107) 04/06/18 07:50 Carbon Dioxide 28 mmol/L (21-32) 04/06/18 07:50 Anion Gap 7 (8-16) L 04/06/18 07:50 BUN 10 mg/dL (7-18) 04/06/18 07:50 Creatinine 0.9 mg/dL (0.7-1.3) 04/06/18 07:50 Creat Clearance w eGFR > 60 (>60) 04/06/18 07:50 POC Glucometer 313 UNITS (80-120) 04/06/18 07:47 Random Glucose 93 mg/dL (74-106) 04/06/18 07:50 Calcium 9.4 mg/dL (8.5-10.1) 04/06/18 07:50 Total Bilirubin 0.3 mg/dL (0.2-1.0) 04/06/18 07:50 AST 52 U/L (15-37) H D 04/06/18 07:50 ALT 56 U/L (12-78) 04/06/18 07:50 Alkaline Phosphatase 93 U/L (45-117) 04/06/18 07:50 Total Protein 7.1 g/dl (6.4-8.2) 04/06/18 07:50 Albumin 3.1 g/dl (3.4-5.0) L 04/06/18 07:50 Urine Color Straw 04/08/18 08:30 Urine Appearance Clear 04/08/18 08:30 Urine pH 6.0 (5.0-8.0) 04/08/18 08:30 Ur Specific [employer] 1.009 (1.001-1.035) 04/08/18 08:30 Urine Protein Negative (NEGATIVE) 04/08/18 08:30 Urine Glucose (UA) Negative (NEGATIVE) 04/08/18 08:30 Urine Ketones Negative (NEGATIVE) 04/08/18 08:30 Urine Blood Negative (NEGATIVE) 04/08/18 08:30 Urine Nitrite Negative (NEGATIVE) 04/08/18 08:30 Urine Bilirubin Negative (<2.0 mg/dL) 04/08/18 08:30 Urine Urobilinogen Negative mg/dL (0.2-1.0) 04/08/18 08:30 Ur Leukocyte Esterase Negative (NEGATIVE) 04/08/18 08:30 RPR Titer Reactive 1:1 (NONREACTIVE) H 04/06/18 07:50 T.pallidum Ab (MHA) Previously reactive (NONREACTIVE) 04/06/18 07:50 HIV 1&2 Antibody Screen Negative 04/06/18 07:50 HIV P24 Antigen Negative 04/06/18 07:50 lab noted history of syphilis been treated - Treatment Hospital Course: Detox Protocol Followed, Detoxed Safely, Responded well, Discharged Condition Good, Rehab Referral Accepted Patient has Accepted a Rehab Referral to: [facility] - Medication Discharge Medications: Ambulatory Orders Escitalopram Oxalate [Lexapro -] 10 mg PO DAILY #30 tablet 04/08/18 - Diagnosis (1) Nicotine dependence Current Visit: Yes Status: Acute Qualifiers: Nicotine product type: cigarettes Substance use status: in withdrawal Qualified Code(s): F17.213 - Nicotine dependence, cigarettes, with withdrawal (2) HTN (hypertension) Current Visit: Yes Status: Chronic Qualifiers: Hypertension type: essential hypertension Qualified Code(s): I10 - Essential (primary) hypertension (3) Alcohol dependence with uncomplicated withdrawal Current Visit: Yes Status: Acute (4) Opioid dependence with withdrawal Current Visit: Yes Status: Acute (5) Hepatitis C carrier Current Visit: No Status: Chronic (6) GERD (gastroesophageal reflux disease) Current Visit: Yes Status: Chronic Qualifiers: Esophagitis presence: without esophagitis Qualified Code(s): K21.9 - Gastro -esophageal reflux disease without esophagitis - AMA Did Patient Leave Against Medical Advice: No
[2018-04-10 09:17] VITALS: BP 123/62; PULSE 81; TEMP 97.5
[2018-04-10] MEDS ORDERED: METHADONE HCL 10 MG TABLET (FOR DETOX USE ONLY) PO ONE (10:00)
[2018-04-10] MEDS: PRENATAL VITAMINS W/ FOLIC ACID TABLET (FP) PO SCH (10:18)
[2018-04-10] MEDS: amLODIPine BESYLATE 5 MG TABLET (FP) PO SCH (10:18)
[2018-04-10] MEDS: ESCITALOPRAM OXALATE 10 MG TABLET (FP) PO SCH (10:18)
[2018-04-10] MEDS: NICOTINE 21 MG/24 HOURS TOPICAL PATCH TD SCH (10:19)
[2018-04-11] MEDS ORDERED: METHADONE HCL 5 MG TABLET (FOR DETOX USE ONLY) PO ONE (06:00)
== END 2018-04-10 09:30 | disposition home or self-care (01) | DRG 773 ==
LOC: YASAS 14:09 → Y6N 18:23
PROVIDERS: ADMIT Surgery; ATTEND Surgery
PROC: HZ2ZZZZ Detoxification Services for Substance Abuse Treatment (ICD-10-PCS; principal; 2018-04-05)
DX: F11.23 Opioid dependence with withdrawal (principal); F10.230 Alcohol dependence with withdrawal, uncomplicated; F14.20 Cocaine dependence, uncomplicated; F17.213 Nicotine dependence, cigarettes, with withdrawal; F19.24 Other psychoactive substance dependence with psychoactive substance-induced mood disorder; F32.9 Major depressive disorder, single episode, unspecified; I10 Essential (primary) hypertension; K21.9 Gastro-esophageal reflux disease without esophagitis; B18.2 Chronic viral hepatitis C; M54.5 Low back pain; R63.4 Abnormal weight loss; Z68.24 Body mass index [BMI] 24.0-24.9, adult
CPT/HCPCS: 36415; 80053; 81003; 82962; 85027; 86593; 86780; 87389; 93005; 93010; J0735

== ENCOUNTER 2019-04-10 08:52 | Inpatient (IN) | payer OTHER ==
[2019-04-10 10:03] VITALS: BMI 23.7
--- NOTE | 2019-04-10 13:09 | HP ---
COWS - Scale Resting Pulse: 1= [place] 81-100 Sweatin=Flushed/Facial Moisture Restless Observation: 1= Difficult to Sit Still Pupil Size: 2= Moderately Dilated Bone or Joint Aches: 2= Severe Diffuse Aches Runny Nose/ Eye Tearin= Runny Nose/Eyes GI Upset > 30mins: 3= Vomiting/Diarrhea Tremor Observation: 2= Slight Tremor Visible Yawning Observation: 1= 1-2x During Session Anxiety or Irritability: 2=Irritable/Anxious Goose Flesh Skin: 3=Piloerection COWS Score: 21 CIWA Score Nausea/Vomitin Muscle Tremors: 3 Anxiety: 3 Agitation: 1-Slight > Activity Paroxysmal Sweats: 2 Orientation: 0-Oriented Tacttile Disturbances: 0-None Auditory Disturbances: 0-None Visual Disturbances: 2-Mild Sensitivity Headache: 2-Mild CIWA-Ar Total Score: 16 - Admission Criteria OASAS Guidelines: Admission for Medically Managed Detox: Requires at least one of the followin. CIWA greater than 12 2. Seizures within the past 24 hours 3. Delirium tremens within the past 24 hours 4. Hallucinations within the past 24 hours 5. Acute intervention needed for co occurring medical disorder 6. Acute intervention needed for co occurring psychiatric disorder 7. Severe withdrawal that cannot be handled at a lower level of care (continued vomiting, continued diarrhea, abnormal vital signs) requiring intravenous medication and/or fluids 8. Patient presents the following: CIWA greater than 12 Admission Criteria Met: Admission criteria met Admission ROS [facility] Chief Complaint: I need to stop Allergies/Adverse Reactions: Allergies Allergy/AdvReac Type Severity Reaction Status Date / Time No Known Allergies Allergy Verified 04/10/19 09:53 History of Present Illness: 34 y of opiate use denies ability to stop using ho mmtp but stil using heroin and drinking - Ebola screening Have you traveled outside of the country in the last 21 days: No Have you had contact with anyone from an Ebola affected area: No - Review of Systems Constitutional: Loss of Appetite, Unintentional Wgt. Loss EENT: reports: Tearing Respiratory: reports: No Symptoms reported Cardiac: reports: No Symptoms Reported GI: reports: Nausea, Vomiting : reports: No Symptoms Reported Musculoskeletal: reports: No Symptoms Reported Integumentary: reports: Other (diffuse tracts misses) Neuro: reports: No Symptoms reported Endocrine: reports: No Symptoms Reported Hematology: reports: No Symptoms Reported Psychiatric: reports: No Sypmtoms Reported Patient History - Patient Medical History Hx Anemia: No Hx Asthma: No Hx Chronic Obstructive Pulmonary Disease (COPD): No Hx Cancer: No Hx Cardiac Disorders: No Hx Congestive Heart Failure: No Hx Hypertension: Yes (not on meds) Hx Hypercholesterolemia: No Hx Pacemaker: No HX Cerebrovascular Accident: No Hx Seizures: No Hx Dementia: No Hx Diabetes: No Hx Gastrointestinal Disorders: Yes (GERD- NO CURRENT MED) Hx Liver Disease: No Hx Genitourinary Disorders: No Hx Sexually Transmitted Disorders: No (DENIES) Hx Renal Disease (ESRD): No Hx Thyroid Disease: No Hx Human Immunodeficiency Virus (HIV): No (NEGATIVE HX ) Hx Hepatitis C: Yes (no tx ) Hx Depression: Yes (WANTS PSYCH EVAL) Hx Suicide Attempt: No (DENIES S/I) Hx Bipolar Disorder: No Hx Schizophrenia: No - Patient Surgical History Past Surgical History: Yes Hx Neurologic Surgery: No Hx Cataract Extraction: No Hx Cardiac Surgery: No Hx Lung Surgery: No Hx Breast Surgery: No Hx Breast Biopsy: No Hx Abdominal Surgery: No Hx Appendectomy: No Hx Cholecystectomy: No Hx Genitourinary Surgery: No Hx Section: No Hx Orthopedic Surgery: Yes (fx, left forearm at age 25 [employer]) Anesthesia Reaction: No - PPD History Date: 04/07/18 Results: 0 mm - Smoking Cessation Smoking history: Current every day smoker Have you smoked in the past 12 months: Yes Aproximately how many cigarettes per day: 20 Cigars Per Day: 0 Hx Chewing Tobacco Use: No Initiated information on smoking cessation: Yes 'Breaking Loose' booklet given: 04/10/19 - Substances abused Alcohol Substance route: Oral Frequency: Daily Amount used: 6-7 Beer (22oz) Age of first use: 20 Date of last use: 04/10/19 Heroin Substance route: Injection Frequency: Daily Amount used: 10 bags Age of first use: 25 Date of last use: 04/10/19 Cocaine Substance route: Injection Frequency: Daily Amount used: 10 bags Age of first use: 25 Date of last use: 04/10/19 Family Disease History - Family Disease History Family Disease History: Diabetes: Mother, CA: Father (ETOH DEPENDENT AND FROM CA. OF THE ESOPHAGUS) Admission Physical Exam [facility] - Vital Signs Vital Signs: Vital Signs - 24 hr 04/10/19 04/10/19 09:54 11:07 Temperature 98.4 F 98.4 F Pulse Rate 94 H 94 H Respiratory 17 17 Rate Blood Pressure 146/87 146/87 - Physical General Appearance: Yes: Irritable, Sweating, Anxious HEENTM: Yes: EOMI, Normocephalic Respiratory: Yes: Chest Non-Tender, Lungs Clear, Normal Breath Sounds Neck: Yes: Within Normal Limits Breast: Yes: Breast Exam Deferred Cardiology: Yes: Regular Rate, S1, S2 Abdominal: Yes: Within Normal Limits Genitourinary: Yes: Within Normal Limits Back: Yes: Within Normal Limits Musculoskeletal: Yes: full range of Motion, Gait Steady Extremities: Yes: Within Normal Limits, Other Neurological: Yes: Within Normal Limits, manager continuous improvement II-XII NML intact, Fully Oriented, Alert, Motor Strength 5/5, Normal Mood/Affect, Normal Response Integumentary: Yes: Track [place] Lymphatic: Yes: Within Normal Limits - Diagnostic (1) Alcohol dependence with uncomplicated withdrawal Current Visit: Yes Status: Acute (2) Cocaine dependence, uncomplicated Current Visit: Yes Status: Acute (3) Opioid dependence with withdrawal Current Visit: Yes Status: Acute Cleared for Admission S - Detox or Rehab [facility] Level of Care: Medically Supervised Detox Regimen/Protocol: Methadone/Librium Breathalyzer - Breathalyzer Breathalyzer: 0 Urine Drug Screen - Test Device Lot number: [id number] Expiration date: 01/21/21 - Control Is test valid?: Yes - Results Drug screen NEGATIVE: No Urine drug screen results: ONEIL-Cocaine, FEN-Fentanyl, MOP-Opiates Inpatient Rehab Admission - Rehab Decision to Admit Inpatient rehab admission?: No
[2019-04-10] MEDS ORDERED: MAGNESIUM HYDROX 2400MG/30ML ORAL SUSPENSION 30 ML CUP PO PRN (13:22)
[2019-04-10] MEDS ORDERED: BISMUTH SUBSALICYLATE 524 MG/30 ML UD PO PRN (13:22)
[2019-04-10] MEDS ORDERED: ACETAMINOPHEN 325 MG TABLET (FP) PO PRN (13:22)
[2019-04-10] MEDS ORDERED: METHOCARBAMOL 500 MG TABLET PO PRN (13:22)
[2019-04-10] MEDS ORDERED: MAGNESIUM CITRATE 300 ML BOTTLE PO PRN (13:22)
[2019-04-10] MEDS ORDERED: MENTHOL/PHENOL 1 EACH UD MM PRN (13:22)
[2019-04-10] MEDS ORDERED: METHADONE HCL 10 MG TABLET (FOR DETOX USE ONLY) PO ONE (14:00)
[2019-04-10] MEDS: diazePAM 5 MG TABLET PO SCH ×2 (14:06→22:29)
[2019-04-10] MEDS: MAG HYDROX/AL HYDROX/SIMETH 30 ML UNIT-DOSE CUP PO PRN ×2 (14:06→19:28)
[2019-04-10] MEDS: THIAMINE HCL 100 MG TABLET (FP) PO SCH (22:34)
[2019-04-11] MEDS: ACETAMINOPHEN 325 MG TABLET (FP) PO PRN ×2 (02:56→10:14)
[2019-04-11] MEDS: diazePAM 5 MG TABLET PO SCH ×3 (05:41→22:09)
[2019-04-11] MEDS: IBUPROFEN 400 MG TABLET (FP) PO PRN (05:43)
[2019-04-11] MEDS ORDERED: METHADONE HCL 5 MG TABLET (FOR DETOX USE ONLY) ONE (09:55)
[2019-04-11] MEDS ORDERED: METHADONE HCL 10 MG TABLET (FOR DETOX USE ONLY) ONE (09:55)
[2019-04-11] MEDS ORDERED: METHADONE (DETOX) 20 MG, METHADONE (DETOX) 5 MG PO ONE (10:00)
[2019-04-11] MEDS: PRENATAL VITAMINS W/ FOLIC ACID TABLET (FP) PO SCH (10:12)
[2019-04-11] MEDS: MAG HYDROX/AL HYDROX/SIMETH 30 ML UNIT-DOSE CUP PO PRN (10:13)
--- NOTE | 2019-04-11 11:56 | PN ---
[facility] CIWA - CIWA Score Nausea/Vomitin-No Nausea/No Vomiting Muscle Tremors: 3 Anxiety: 3 Agitation: 3 Paroxysmal Sweats: 3 Orientation: 0-Oriented Tacttile Disturbances: 0-None Auditory Disturbances: 0-None Visual Disturbances: 0-None Headache: 0-None Present CIWA-Ar Total Score: 12 S COWS - Scale Resting Pulse: 0= [place] 80 or Below Sweatin= Chills/Flushing Restless Observation: 1= Difficult to Sit Still Pupil Size: 0= Normal to Room Light Bone or Joint Aches: 2= Severe Diffuse Aches Runny Nose/ Eye Tearin= Runny Nose/Eyes GI Upset > 30mins: 1= Stomach Cramp Tremor Observation of Outstretched Hands: 1= Tremor [place], Not Seen Yawning Observation: 2= >3x During Session Anxiety or Irritability: 1=Feels Anxious/Irritable Goose Flesh Skin: 0=Smooth Skin COWS Score: 11 [facility] Progress Note (SOAP) Subjective: sweats shakes interrupted sleep body aches insomnia Objective: 04/11/19 11:53 Vital Signs Temperature 98.4 F 04/11/19 09:12 Pulse Rate 71 04/11/19 09:12 Respiratory Rate 18 04/11/19 09:12 Blood Pressure 130/74 04/11/19 09:12 O2 Sat by Pulse Oximetry (%) labs pending aaox3 ambulating no acute distress Assessment: 04/11/19 11:54 withdrawal sx Plan: continue detox increase fluids pending labs psych consult ordered
[2019-04-11 12:15] LABS: HEMATOCRIT 36.3 % (35.4-49); HEMOGLOBIN 12.4 GM/dL (11.7-16.9); MCH 30.3 pg (25.7-33.7); MCHC 34.1 g/dl (32.0-35.9); MEAN CELL VOLUME 88.7 fl (80-96); MEAN PLT VOLUME 8.9 fl (7.5-11.1); PLATELET COUNT 185 K/MM3 (134-434); RBC 4.09 M/mm3 (4.00-5.60); RDW 14.5 % (11.9-15.9); WHITE BLOOD COUNT 9.4 K/mm3 (4.0-10.0)
[2019-04-11 12:24] LABS: BILIRUBIN,TOTAL 0.5 mg/dL (0.2-1); BLOOD UREA NITROGEN 13.7 mg/dL (7-18); CALCIUM 8.7 mg/dL (8.5-10.1); CREATININE 1.1 mg/dL (0.55-1.3); POTASSIUM 3.6 mmol/L (3.5-5.1); TOT PROT 6.8 g/dl (6.4-8.2)
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
[2019-04-11] MEDS: diazePAM 5 MG TABLET PO PRN (18:10)
[2019-04-11] MEDS: MELATONIN 5 MG TABLETS PO PRN (22:09)
[2019-04-11] MEDS: THIAMINE HCL 100 MG TABLET (FP) PO SCH (22:09)
[2019-04-12] MEDS: IBUPROFEN 400 MG TABLET (FP) PO PRN ×2 (06:18→20:10)
[2019-04-12] MEDS: diazePAM 5 MG TABLET PO SCH ×2 (06:20→17:50)
[2019-04-12] MEDS ORDERED: METHADONE HCL 10 MG TABLET (FOR DETOX USE ONLY) PO ONE (10:00)
--- NOTE | 2019-04-12 10:01 | PN ---
Psychiatric Progress Note Vital Signs: Vital Signs Period Temp Pulse Resp BP Sys/Perez Pulse Ox Last 24 Hr 97.2 F-98.4 F 67-85 16-18 134-154/73-93 Date of Session: 04/12/19 Current Medications: Active Medications Generic Name Dose Route Start Last Admin Trade Name Freq PRN Reason Stop Dose Admin Acetaminophen 650 mg 04/10/19 13:22 04/11/19 10:14 Tylenol - PO 650 mg Q6H PRN Administration PAIN LEVEL 4 - 6 Acetaminophen 650 mg 04/10/19 13:22 Tylenol - PO Q6H PRN FEVER Al Hydroxide/Mg Hydroxide 30 ml 04/10/19 13:22 04/11/19 10:13 Mylanta Oral Suspension - PO 30 ml Q6H PRN Administration DYSPEPSIA Bismuth Subsalicylate 524 mg 04/10/19 13:22 04/10/19 22:31 Pepto-Bismol - PO 524 mg Q1H PRN Administration DIARRHEA Clonidine 0.1 mg 04/10/19 13:22 Catapres - PO 04/12/19 23:59 Q4H PRN Withdrawal Symptoms Diazepam 5 mg 04/12/19 06:00 04/12/19 06:20 Valium - PO 04/12/19 18:01 5 mg Q12H LESVIA Administration Diazepam 5 mg 04/13/19 06:00 Valium - PO 04/13/19 06:01 ONCE ONE Diazepam 10 mg 04/10/19 13:22 04/11/19 18:10 Valium - PO 04/13/19 13:21 10 mg Q4H PRN Administration WITHDRAWAL(CONT SUBST) Eucalyptus/Menthol/Phenol/Sorbitol 1 each 04/10/19 13:22 Cepastat Lozenge - MM 04/16/19 13:23 Q4H PRN SORE THROAT Hydroxyzine HCl 25 mg 04/10/19 13:22 Atarax - PO 04/16/19 13:23 Q6H PRN For Anxiety Ibuprofen 400 mg 04/10/19 13:22 04/12/19 06:18 Motrin - PO 400 mg Q6H PRN Administration PAIN LEVEL 1 - 3 Magnesium Citrate 300 ml 04/10/19 13:22 Citroma - PO Q48H PRN CONSTIPATION Magnesium Hydroxide 30 ml 04/10/19 13:22 Milk Of Magnesia - PO PRN PRN CONSTIPATION Melatonin 5 mg 04/10/19 13:22 04/11/19 22:09 Melatonin PO 5 mg HS PRN Administration INSOMNIA Methadone HCl 10 mg/ Methadone 15 mg 04/13/19 10:00 HCl 5 mg PO 04/13/19 10:01 ONCE ONE Methadone HCl 5 mg 04/15/19 06:00 Dolophine - PO 04/15/19 06:01 ONCE@0600 ONE Methadone HCl 10 mg 04/14/19 10:00 Dolophine - PO 04/14/19 10:01 ONCE ONE Methadone HCl 20 mg 04/12/19 10:00 Dolophine - PO 04/12/19 10:01 ONCE ONE Methocarbamol 500 mg 04/10/19 13:22 Robaxin - PO 04/16/19 13:23 Q6H PRN MUSCLE SPASMS Multivit/Folic Acid/Iron 1 tab 04/11/19 10:00 04/11/19 10:12 Vitamins ([facility]) - PO 1 tab DAILY LESVIA Administration Thiamine HCl 100 mg 04/10/19 22:00 04/11/19 22:09 Vitamin B1 - PO 100 mg HS LESVIA Administration Medication(s) Change(s): Yes. Current Side Effect: No Lab tests ordered: No Lab tests reviewed: Yes Mental Status Exam - Mental Status Exam Alert and Oriented to: Time, Place, Person Cognitive Function: Good Patient Appearance: Well Groomed Mood: Euthymic Affect: Mood Congruent Patient Behavior: Cooperative Speech Pattern: Appropriate Voice Loudness: Normal Thought Process: Intact, Goal Oriented Thought Disorder: Not Present Hallucinations: Denies Suicidal Ideation: Denies Homicidal Ideation: Denies Insight/Judgement: Poor Sleep: Poorly Appetite: Fair Muscle strength/Tone: Normal Gait/Station: Normal Psychiatric Treatment Plan - Problem List (1) Substance-induced sleep disorder Current Visit: Yes (2) Alcohol dependence with uncomplicated withdrawal Current Visit: Yes (3) Cocaine dependence, uncomplicated Current Visit: Yes (4) Opioid dependence with withdrawal Current Visit: Yes (5) Schizophrenia Current Visit: Yes
[2019-04-12 10:10] LABS: RPR REACTIVE 1:1 (NONREACTIVE)
[2019-04-12 10:11] LABS: TREPONEMA ANTIBODY PREVIOUSLY REACTIVE (NONREACTIVE)
[2019-04-12] MEDS: diazePAM 5 MG TABLET PO PRN ×2 (10:24→19:52)
[2019-04-12] MEDS: PRENATAL VITAMINS W/ FOLIC ACID TABLET (FP) PO SCH (10:26)
--- NOTE | 2019-04-12 10:50 | PN ---
[facility] CIWA - CIWA Score Nausea/Vomitin-No Nausea/No Vomiting Muscle Tremors: 2 Anxiety: 2 Agitation: 2 Paroxysmal Sweats: 3 Orientation: 0-Oriented Tacttile Disturbances: 0-None Auditory Disturbances: 0-None Visual Disturbances: 0-None Headache: 1-Very Mild CIWA-Ar Total Score: 10 S COWS - Scale Resting Pulse: 0= [place] 80 or Below Sweatin= Chills/Flushing Restless Observation: 1= Difficult to Sit Still Pupil Size: 0= Normal to Room Light Bone or Joint Aches: 0= None Runny Nose/ Eye Tearin= None GI Upset > 30mins: 0= None Tremor Observation of Outstretched Hands: 2= Slight Tremor Visible Yawning Observation: 1= 1-2x During Session Anxiety or Irritability: 2=Irritable/Anxious Goose Flesh Skin: 0=Smooth Skin COWS Score: 7 [facility] Progress Note (SOAP) Subjective: c/o sweats, headache, anxiety, and shakes. Objective: 04/12/19 10:49 Vital Signs 04/12/19 04/12/19 07:39 09:49 Temperature 98.4 F 97.8 F Pulse Rate 85 72 Respiratory 18 18 Rate Blood Pressure 134/93 154/93 Lab Results WBC 9.4 K/mm3 (4.0-10.0) 04/11/19 07:00 RBC 4.09 M/mm3 (4.00-5.60) 04/11/19 07:00 Hgb 12.4 GM/dL (11.7-16.9) 04/11/19 07:00 Hct 36.3 % (35.4-49) 04/11/19 07:00 MCV 88.7 fl (80-96) 04/11/19 07:00 MCHC 34.1 g/dl (32.0-35.9) 04/11/19 07:00 RDW 14.5 % (11.9-15.9) 04/11/19 07:00 Plt Count 185 K/MM3 (134-434) D 04/11/19 07:00 Sodium 138 mmol/L (136-145) 04/11/19 07:00 Potassium 3.6 mmol/L (3.5-5.1) 04/11/19 07:00 Chloride 102 mmol/L (98-107) 04/11/19 07:00 Carbon Dioxide 32 mmol/L (21-32) 04/11/19 07:00 Anion Gap 4 MMOL/L (8-16) L 04/11/19 07:00 BUN 13.7 mg/dL (7-18) 04/11/19 07:00 Creatinine 1.1 mg/dL (0.55-1.3) 04/11/19 07:00 Random Glucose 94 mg/dL (74-106) 04/11/19 07:00 Calcium 8.7 mg/dL (8.5-10.1) 04/11/19 07:00 Labs noted. Assessment: 04/12/19 10:49 AOX3, in no acute distress. Full ROM, ambulating in the unit. withdrawal symptoms. Plan: continue detox.
[2019-04-12] MEDS ORDERED: NICOTINE POLACRILEX 2 MG GUM BUC PRN (12:32)
[2019-04-12] MEDS: NICOTINE 21 MG/24 HOURS TOPICAL PATCH TD SCH (13:34)
[2019-04-12] MEDS: MAG HYDROX/AL HYDROX/SIMETH 30 ML UNIT-DOSE CUP PO PRN (15:17)
[2019-04-12] MEDS: cloNIDine HCL 0.1 MG TABLET PO PRN ×2 (17:50→22:07)
[2019-04-12] MEDS: THIAMINE HCL 100 MG TABLET (FP) PO SCH (22:07)
[2019-04-12] MEDS: QUEtiapine FUMARATE 50 MG TABLET PO SCH (22:07)
[2019-04-13] MEDS: IBUPROFEN 400 MG TABLET (FP) PO PRN ×2 (05:58→17:54)
[2019-04-13] MEDS ORDERED: diazePAM 5 MG TABLET PO ONE (06:00)
[2019-04-13] MEDS ORDERED: METHADONE HCL 5 MG TABLET (FOR DETOX USE ONLY) ONE (09:31)
[2019-04-13] MEDS ORDERED: METHADONE HCL 10 MG TABLET (FOR DETOX USE ONLY) ONE (09:31)
[2019-04-13] MEDS ORDERED: METHADONE (DETOX) 10 MG, METHADONE (DETOX) 5 MG PO ONE (10:00)
[2019-04-13] MEDS: PRENATAL VITAMINS W/ FOLIC ACID TABLET (FP) PO SCH (10:36)
[2019-04-13] MEDS: NICOTINE 21 MG/24 HOURS TOPICAL PATCH TD SCH (10:36)
[2019-04-13] MEDS: MAG HYDROX/AL HYDROX/SIMETH 30 ML UNIT-DOSE CUP PO PRN ×2 (10:37→19:56)
--- NOTE | 2019-04-13 12:04 | PN ---
[facility] CIWA - CIWA Score Nausea/Vomitin-Mild Nausea/No Vomiting Muscle Tremors: 2 Anxiety: 2 Agitation: 0-Normal Activity Paroxysmal Sweats: 2 Orientation: 0-Oriented Tacttile Disturbances: 1-Very Mild Itch/Numbness Auditory Disturbances: 0-None Visual Disturbances: 0-None Headache: 1-Very Mild CIWA-Ar Total Score: 9 S COWS - Scale Resting Pulse: 0= [place] 80 or Below Sweatin= Chills/Flushing Restless Observation: 0= Sits Still Pupil Size: 1= Pupils >than Normal Bone or Joint Aches: 1= Mild Discomfort Runny Nose/ Eye Tearin= Nasal Congestion GI Upset > 30mins: 2= Nausea/Diarrhea Tremor Observation of Outstretched Hands: 2= Slight Tremor Visible Yawning Observation: 0= None Anxiety or Irritability: 2=Irritable/Anxious Goose Flesh Skin: 0=Smooth Skin COWS Score: 10 S Progress Note (SOAP) Subjective: Patient c/o anxiety, chills, night sweats, nausea and shakes. Objective: 04/13/19 12:03 Laboratory Tests 04/11/19 04/11/19 04/11/19 07:00 07:00 07:00 WBC 9.4 RBC 4.09 Hgb 12.4 Hct 36.3 MCV 88.7 MCH 30.3 MCHC 34.1 RDW 14.5 Plt Count 185 D MPV 8.9 Sodium 138 Potassium 3.6 Chloride 102 Carbon Dioxide 32 Anion Gap 4 L BUN 13.7 Creatinine 1.1 Est GFR (CKD-EPI)AfAm 87.74 Est GFR (CKD-EPI)NonAf 75.70 Random Glucose 94 Calcium 8.7 Total Bilirubin 0.5 AST 38 H ALT 45 Alkaline Phosphatase 97 Total Protein 6.8 Albumin 3.0 L RPR Titer Reactive 1:1 H T.pallidum Ab ([facility]) Previously reactive Vital Signs Temperature 97.7 F 04/13/19 09:19 Pulse Rate 72 04/13/19 09:19 Respiratory Rate 18 04/13/19 09:19 Blood Pressure 130/91 04/13/19 09:19 O2 Sat by Pulse Oximetry (%) PE alert and oriented mild facial moisture pupils mildly dilated, eoms intact bl ext full rom, amb ad annabelle, mild tremors Assessment: 04/13/19 12:04 withdrawal sx Plan: continue detox encourage fluids clonidine ordered 0.1mg po bid for elevated bp monitor clinically
[2019-04-13] MEDS: diazePAM 5 MG TABLET PO PRN (13:18)
[2019-04-13] MEDS: cloNIDine HCL 0.1 MG TABLET PO PRN ×2 (17:54→20:57)
[2019-04-13] MEDS: hydrOXYzine HCL 25 MG TABLET (FP) PO PRN (20:27)
[2019-04-13] MEDS: QUEtiapine FUMARATE 50 MG TABLET PO SCH (22:44)
[2019-04-13] MEDS: THIAMINE HCL 100 MG TABLET (FP) PO SCH (22:44)
[2019-04-13] MEDS: MELATONIN 5 MG TABLETS PO PRN (22:44)
[2019-04-14] MEDS: hydrOXYzine HCL 25 MG TABLET (FP) PO PRN ×2 (08:49→15:00)
[2019-04-14] MEDS ORDERED: METHADONE HCL 10 MG TABLET (FOR DETOX USE ONLY) PO ONE (10:00)
[2019-04-14] MEDS: PRENATAL VITAMINS W/ FOLIC ACID TABLET (FP) PO SCH (10:47)
[2019-04-14] MEDS: NICOTINE 21 MG/24 HOURS TOPICAL PATCH TD SCH (10:47)
[2019-04-14] MEDS: cloNIDine HCL 0.1 MG TABLET PO PRN (10:47)
--- NOTE | 2019-04-14 15:09 | PN ---
S CIWA - CIWA Score Nausea/Vomitin-No Nausea/No Vomiting Muscle Tremors: None Anxiety: 3 Agitation: 1-Slight > Activity Paroxysmal Sweats: No Perspiration Orientation: 0-Oriented Tacttile Disturbances: 1-Very Mild Itch/Numbness Auditory Disturbances: 0-None Visual Disturbances: 1-Very Mild Sensitivity Headache: 3-Moderate CIWA-Ar Total Score: 9 S COWS - Scale Resting Pulse: 1= [place] 81-100 Sweatin= Chills/Flushing Restless Observation: 1= Difficult to Sit Still Pupil Size: 0= Normal to Room Light Bone or Joint Aches: 0= None Runny Nose/ Eye Tearin= None GI Upset > 30mins: 2= Nausea/Diarrhea Tremor Observation of Outstretched Hands: 0= None Yawning Observation: 1= 1-2x During Session Anxiety or Irritability: 2=Irritable/Anxious Goose Flesh Skin: 3=Piloerection COWS Score: 11 S Progress Note (SOAP) Subjective: Diarrhea, Anxious, H/A, Interrupted Sleep. Objective: PATIENT A & O X 3, OBSERVED AMBULATING ON UNIT WITH ASSISTANCE OF A CANE. IN NO ACUTE DISTRESS. 04/14/19 15:10 Vital Signs Temperature 97.7 F 04/14/19 13:14 Pulse Rate 84 04/14/19 13:14 Respiratory Rate 18 04/14/19 13:14 Blood Pressure 150/82 04/14/19 13:14 O2 Sat by Pulse Oximetry (%) Laboratory Tests 04/11/19 04/11/19 04/11/19 07:00 07:00 07:00 WBC 9.4 RBC 4.09 Hgb 12.4 Hct 36.3 MCV 88.7 MCH 30.3 MCHC 34.1 RDW 14.5 Plt Count 185 D MPV 8.9 Sodium 138 Potassium 3.6 Chloride 102 Carbon Dioxide 32 Anion Gap 4 L BUN 13.7 Creatinine 1.1 Est GFR (CKD-EPI)AfAm 87.74 Est GFR (CKD-EPI)NonAf 75.70 Random Glucose 94 Calcium 8.7 Total Bilirubin 0.5 AST 38 H ALT 45 Alkaline Phosphatase 97 Total Protein 6.8 Albumin 3.0 L RPR Titer Reactive 1:1 H T.pallidum Ab ([facility]) Previously reactive LABS NOTED. ADMISSION RPR RESULT NOTED: REACTIVE 1:1 ([facility]: PREVIOUSLY REACTIVE). PATIENT REPORTS THAT HE COMPLETED A FULL COURSE OF TREATMENT FOR SYPHILIS IN THE PAST. 04/14/19 16:01 Assessment: 04/14/19 15:11 WITHDRAWAL SYMPTOMS. HYPERTENSION. 04/14/19 15:12 Plan: CONTINUE DETOX. CLONIDINE, 0.1 MG PO X 1 DOSE FOR ELEVATED BLOOD PRESSURE.
[2019-04-14] MEDS ORDERED: cloNIDine HCL 0.1 MG TABLET PO ONE (15:26)
[2019-04-14] MEDS: MAG HYDROX/AL HYDROX/SIMETH 30 ML UNIT-DOSE CUP PO PRN (21:47)
[2019-04-14] MEDS: THIAMINE HCL 100 MG TABLET (FP) PO SCH (21:47)
[2019-04-14] MEDS: QUEtiapine FUMARATE 50 MG TABLET PO SCH (21:47)
[2019-04-15] MEDS ORDERED: METHADONE HCL 5 MG TABLET (FOR DETOX USE ONLY) PO ONE (06:00)
[2019-04-15] MEDS ORDERED: cloNIDine HCL 0.1 MG TABLET PO ONE (09:12)
[2019-04-15] MEDS: PRENATAL VITAMINS W/ FOLIC ACID TABLET (FP) PO SCH (09:12)
[2019-04-15] MEDS: hydrOXYzine HCL 25 MG TABLET (FP) PO PRN (09:12)
[2019-04-15] MEDS: cloNIDine HCL 0.1 MG TABLET PO PRN (09:13)
--- NOTE | 2019-04-15 09:25 | DS ---
[facility] Discharge Summary Admission Date: 04/10/19 Discharge Date: 04/15/19 - History Present History: Alcohol Dependence, Cocaine Dependence, Opioid Dependence - Physical Exam Results Vital Signs: Vital Signs Temperature 97.2 F L 04/15/19 06:00 Pulse Rate 64 04/15/19 06:00 Respiratory Rate 18 04/15/19 06:00 Blood Pressure 151/87 04/15/19 06:00 O2 Sat by Pulse Oximetry (%) Pertinent Admission Physical Exam Findings: pt arrived in withdrawals Laboratory Tests 04/11/19 04/11/19 04/11/19 07:00 07:00 07:00 WBC 9.4 RBC 4.09 Hgb 12.4 Hct 36.3 MCV 88.7 MCH 30.3 MCHC 34.1 RDW 14.5 Plt Count 185 D MPV 8.9 Sodium 138 Potassium 3.6 Chloride 102 Carbon Dioxide 32 Anion Gap 4 L BUN 13.7 Creatinine 1.1 Est GFR (CKD-EPI)AfAm 87.74 Est GFR (CKD-EPI)NonAf 75.70 Random Glucose 94 Calcium 8.7 Total Bilirubin 0.5 AST 38 H ALT 45 Alkaline Phosphatase 97 Total Protein 6.8 Albumin 3.0 L RPR Titer Reactive 1:1 H T.pallidum Ab ([facility]) Previously reactive today pt is aaox3 ambulating no acute distress no s/s of withdrawal sx - Treatment Hospital Course: Detox Protocol Followed, Detoxed Safely, Responded well, Discharged Condition Good, Rehab Referral Accepted Patient has Accepted a Rehab Referral to: pt declined rehab - Medication Discharge Medications: Ambulatory Orders NK [No Known Home Medication] 04/10/19 - Diagnosis (1) Alcohol dependence with uncomplicated withdrawal Current Visit: Yes Status: Chronic (2) Cocaine dependence, uncomplicated Current Visit: Yes Status: Chronic (3) Opioid dependence with withdrawal Current Visit: Yes Status: Chronic (4) Substance-induced sleep disorder Current Visit: Yes Status: Acute (5) HTN (hypertension) Current Visit: Yes Status: Chronic Qualifiers: Hypertension type: essential hypertension Qualified Code(s): I10 - Essential (primary) hypertension (6) Schizophrenia Current Visit: Yes Status: Suspected Qualifiers: Schizophrenia type: unspecified Qualified Code(s): F20.9 - Schizophrenia, unspecified (7) Low back pain Current Visit: Yes Status: Acute Qualifiers: Chronicity: acute Back pain laterality: bilateral Sciatica presence: without sciatica Qualified Code(s): M54.5 - Low back pain (8) Nicotine dependence Current Visit: Yes Status: Chronic Qualifiers: Nicotine product type: cigarettes Substance use status: uncomplicated Qualified Code(s): F17.210 - Nicotine dependence, cigarettes, uncomplicated (9) GERD (gastroesophageal reflux disease) Current Visit: Yes Status: Chronic Qualifiers: Esophagitis presence: without esophagitis Qualified Code(s): K21.9 - Gastro -esophageal reflux disease without esophagitis (10) Drug-induced mood disorder Current Visit: No Status: Suspected - AMA Did Patient Leave Against Medical Advice: No (going home)
[2019-04-15 09:32] VITALS: BP 127/87; PULSE 83; TEMP 97.5
== END 2019-04-15 09:50 | disposition home or self-care (01) | DRG 773 ==
LOC: YASAS 08:52 → Y6N 13:38
PROVIDERS: ADMIT Surgery; ATTEND Surgery
PROC: HZ2ZZZZ Detoxification Services for Substance Abuse Treatment (ICD-10-PCS; principal; 2019-04-10)
DX: F11.23 Opioid dependence with withdrawal (principal); F10.230 Alcohol dependence with withdrawal, uncomplicated; F14.20 Cocaine dependence, uncomplicated; F17.210 Nicotine dependence, cigarettes, uncomplicated; F19.24 Other psychoactive substance dependence with psychoactive substance-induced mood disorder; F19.282 Other psychoactive substance dependence with psychoactive substance-induced sleep disorder; F20.9 Schizophrenia, unspecified; I10 Essential (primary) hypertension; M54.5 Low back pain; K21.9 Gastro-esophageal reflux disease without esophagitis; B18.2 Chronic viral hepatitis C
CPT/HCPCS: 36415; 80053; 85027; 86593; 86780; J0735

== ENCOUNTER 2019-10-06 19:36 | Inpatient (IN) | payer OTHER ==
[2019-10-06 20:25] VITALS: BMI 25.7
[2019-10-07] MEDS ORDERED: chlordiazePOXIDE HCL 25 MG CAPSULE PO SCH
--- NOTE | 2019-10-07 00:10 | HP ---
COWS - Scale Resting Pulse: 1= [place] 81-100 Sweatin=Flushed/Facial Moisture Restless Observation: 0= Sits Still Pupil Size: 0= Normal to Room Light Bone or Joint Aches: 4=Acute Joint/Muscle Pain Runny Nose/ Eye Tearin= Runny Nose/Eyes GI Upset > 30mins: 2= Nausea/Diarrhea (diarrhea x 2) Tremor Observation: 2= Slight Tremor Visible Yawning Observation: 0= None Anxiety or Irritability: 2=Irritable/Anxious Goose Flesh Skin: 0=Smooth Skin COWS Score: 15 CIWA Score Nausea/Vomitin-Mild Nausea/No Vomiting Muscle Tremors: 3 Anxiety: 3 Agitation: 3 Paroxysmal Sweats: 2 Orientation: 0-Oriented Tacttile Disturbances: 0-None Auditory Disturbances: 0-None Visual Disturbances: 0-None Headache: 4-Moderately Severe CIWA-Ar Total Score: 16 - Admission Criteria [facility] Guidelines: Admission for Medically Managed Detox: Requires at least one of the followin. CIWA greater than 12 2. Seizures within the past 24 hours 3. Delirium tremens within the past 24 hours 4. Hallucinations within the past 24 hours 5. Acute intervention needed for co occurring medical disorder 6. Acute intervention needed for co occurring psychiatric disorder 7. Severe withdrawal that cannot be handled at a lower level of care (continued vomiting, continued diarrhea, abnormal vital signs) requiring intravenous medication and/or fluids 8. Admitting History and Physical - Smoking History Smoking history: Current every day smoker Have you smoked in the past 12 months: Yes Aproximately how many cigarettes per day: 20 - Alcohol/Substance Use Hx Alcohol Use: Yes (RUM/BEER) Admission [facility] Chief Complaint: Heroin and alcohol withdrawal symptoms Allergies/Adverse Reactions: Allergies Allergy/AdvReac Type Severity Reaction Status Date / Time No Known Allergies Allergy Verified 10/06/19 19:53 History of Present Illness: 54 years old male with a long history of heroin and alcohol withdrawal symptoms is seeking admission to detox. Patient reports that his last detox was for the period 04/05/2019 - 04/15/2019. He states that his longest period of sobriety is 2 years. He has medical history of hypertension, Hep. C, GERD and Psych history of schizophrenia. Patient denies suicide attempt or suicidal ideation at this time. He reports intermittent blackouts, last about 5 months ago. Exam Limitations: No Limitations - Ebola screening Have you traveled outside of the country in the last 21 days: No (N) Have you had contact with anyone from an Ebola affected area: No Do you have a fever: No - Review of Systems Constitutional: Chills, Malaise, Night Sweats, Changes in sleep EENT: reports: No Symptoms Reported Respiratory: reports: No Symptoms reported Cardiac: reports: No Symptoms Reported GI: reports: Diarrhea (x 2), Nausea, Poor Fluid Intake, Abdominal cramping : reports: No Symptoms Reported Musculoskeletal: reports: Back Pain, Joint Pain Integumentary: reports: Dryness, Flushing Neuro: reports: Headache, Tremors Endocrine: reports: No Symptoms Reported Hematology: reports: No Symptoms Reported Psychiatric: reports: Mood/Affect Appropiate, Orientated x3 Other Systems: Reviewed and Negative Patient History - Patient Medical History Hx Anemia: No Hx Asthma: No Hx Chronic Obstructive Pulmonary Disease (COPD): No Hx Cancer: No Hx Cardiac Disorders: No Hx Congestive Heart Failure: No Hx Hypertension: Yes (Not on medication) Hx Hypercholesterolemia: No Hx Pacemaker: No HX Cerebrovascular Accident: No Hx Seizures: No Hx Dementia: No Hx Diabetes: No Hx Gastrointestinal Disorders: No Hx Liver Disease: No Hx Genitourinary Disorders: No Hx Sexually Transmitted Disorders: No Hx Renal Disease (ESRD): No Hx Thyroid Disease: No Hx Human Immunodeficiency Virus (HIV): No (NEGATIVE 2019) Hx Hepatitis C: Yes (Not treated) Hx Depression: No Hx Suicide Attempt: No (Denies suicidal ideation at this time) Hx Bipolar Disorder: No Hx Schizophrenia: No - Patient Surgical History Past Surgical History: Yes Hx Neurologic Surgery: No Hx Cataract Extraction: No Hx Cardiac Surgery: No Hx Lung Surgery: No Hx Breast Surgery: No Hx Breast Biopsy: No Hx Abdominal Surgery: No Hx Appendectomy: No Hx Cholecystectomy: No Hx Genitourinary Surgery: No Hx Section: No Hx Orthopedic Surgery: Yes (fx, left forearm at age 25 [employer]) Anesthesia Reaction: No - PPD History Previous Implant?: Yes Documented Results: Negative w/proof Implanted On Prior [facility] Admission?: Yes Date: 04/07/18 Results: 0 mm PPD to be Administered?: Yes - Reproductive History Patient is a Female of Child Bearing Age (11 -55 yrs old): No (male) - Smoking Cessation Smoking history: Current every day smoker Have you smoked in the past 12 months: Yes Aproximately how many cigarettes per day: 20 Cigars Per Day: 0 Hx Chewing Tobacco Use: No Initiated information on smoking cessation: Yes 'Breaking Loose' booklet given: 10/07/19 - Substance & Tx. History Hx Alcohol Use: Yes Hx Substance Use: Yes Substance Use Type: Alcohol, Cocaine, Opiates Hx Substance Use Treatment: Yes ([facility]) - Substances abused Alcohol Substance route: Oral Frequency: Daily Amount used: 5-6 Beer (22oz) Age of first use: 20 Date of last use: 10/06/19 Heroin Substance route: Injection Frequency: Daily Amount used: 6- 10 bags Age of first use: 25 Date of last use: 10/06/19 Cocaine Substance route: Injection Frequency: Daily Amount used: 6- 10 bags Age of first use: 20 Date of last use: 10/06/19 Admission Physical Exam [facility] - Vital Signs Vital Signs: Vital Signs - 24 hr 10/06/19 19:53 Temperature 97 F L Pulse Rate 83 Respiratory 16 Rate Blood Pressure 148/88 - Physical General Appearance: Yes: Moderate Distress, Tremorous, Sweating HEENTM: Yes: Within Normal Limits Respiratory: Yes: Lungs Clear, Normal Breath Sounds, No Respiratory Distress Neck: Yes: Within Normal Limits Breast: Yes: Breast Exam Deferred Cardiology: Yes: Regular Rhythm, Regular Rate Abdominal: Yes: Normal Bowel Sounds, Soft Genitourinary: Yes: Within Normal Limits Back: Yes: Normal Inspection Musculoskeletal: Yes: Back pain, Muscle Pain Extremities: Yes: Normal Inspection Neurological: Yes: Within Normal Limits, Alert, Normal Mood/Affect Integumentary: Yes: Warm Lymphatic: Yes: Within Normal Limits - Diagnostic (1) Alcohol dependence with uncomplicated withdrawal Current Visit: Yes Status: Acute (2) Cocaine dependence, uncomplicated Current Visit: Yes Status: Chronic (3) GERD (gastroesophageal reflux disease) Current Visit: Yes Status: Chronic Qualifiers: Esophagitis presence: without esophagitis Qualified Code(s): K21.9 - Gastro -esophageal reflux disease without esophagitis (4) HTN (hypertension) Current Visit: Yes Status: Chronic Qualifiers: Hypertension type: essential hypertension Qualified Code(s): I10 - Essential (primary) hypertension (5) Nicotine dependence Current Visit: Yes Status: Chronic Qualifiers: Nicotine product type: cigarettes Substance use status: uncomplicated Qualified Code(s): F17.210 - Nicotine dependence, cigarettes, uncomplicated (6) Opioid dependence with withdrawal Current Visit: Yes Status: Acute Cleared for Admission [facility] - Detox or Rehab [facility] Level of Care: Medically Managed Detox Regimen/Protocol: Methadone/Librium Claeared for Rehab Admission: No Breathalyzer - Breathalyzer Breathalyzer: 0 Urine Drug Screen - Test Device Lot number: [id number] Expiration date: 04/23/21 - Control Is test valid?: Yes - Results Drug screen NEGATIVE: No Urine drug screen results: ONEIL-Cocaine, FEN-Fentanyl, MOP-Opiates Inpatient Rehab Admission - Rehab Decision to Admit Inpatient rehab admission?: No
[2019-10-07] MEDS ORDERED: MENTHOL/PHENOL 1 EACH UD MM PRN (00:27)
[2019-10-07] MEDS ORDERED: MELATONIN 5 MG TABLETS PO PRN (00:27)
[2019-10-07] MEDS ORDERED: NICOTINE POLACRILEX 2 MG GUM BUC PRN (00:27)
[2019-10-07] MEDS ORDERED: METHOCARBAMOL 500 MG TABLET PO PRN (00:27)
[2019-10-07] MEDS ORDERED: cloNIDine HCL 0.1 MG TABLET PO PRN (00:27)
[2019-10-07] MEDS ORDERED: MAGNESIUM HYDROX 2400MG/30ML ORAL SUSPENSION 30 ML CUP PO PRN (00:27)
[2019-10-07] MEDS ORDERED: MAGNESIUM CITRATE 300 ML BOTTLE PO PRN (00:27)
[2019-10-07] MEDS ORDERED: BISMUTH SUBSALICYLATE 524 MG/30 ML UD PO PRN (00:27)
[2019-10-07] MEDS ORDERED: IBUPROFEN 400 MG TABLET (FP) PO PRN (00:27)
[2019-10-07] MEDS ORDERED: MAG HYDROX/AL HYDROX/SIMETH 30 ML UNIT-DOSE CUP PO PRN (00:27)
[2019-10-07] MEDS ORDERED: ACETAMINOPHEN 325 MG TABLET (FP) PO PRN (00:27)
[2019-10-07] MEDS: chlordiazePOXIDE HCL 25 MG CAPSULE PO PRN ×3 (01:50→14:44)
[2019-10-07] MEDS ORDERED: METHADONE HCL 10 MG TABLET (FOR DETOX USE ONLY) PO ONE (02:00)
[2019-10-07] MEDS: PRENATAL VITAMINS W/ FOLIC ACID TABLET (FP) PO SCH (10:24)
[2019-10-07] MEDS: NICOTINE 21 MG/24 HOURS TOPICAL PATCH TD SCH (10:24)
--- NOTE | 2019-10-07 12:10 | CONSULT ---
[facility] Psychiatric Consult - Data Date of interview: 10/07/19 Admission source: [facility] Identifying data: Revisit to [facility] and admission to [address] [place] [address] for this 54 y/o male self-referred for detoxification treatment. MADELEINE issues : alcohol, heroin, cocaine, nicotine. Patient is single, father of five, homeless, unemployed and supported on food stamps. Substance Abuse History: Discussed with the patient. Details in current [facility] report as follows : Smoking history: Current every day smoker. Have you smoked in the past 12 months: Yes. Aproximately how many cigarettes per day: 20. Cigars Per Day: 0. Hx Chewing Tobacco Use: No. Initiated information on smoking cessation: Yes. 'Breaking Loose' booklet given: 10/07/19. - Substance & Tx. History. Hx Alcohol Use: Yes. Hx Substance Use: Yes. Substance Use Type : Alcohol, Cocaine, Opiates. Hx Substance Use Treatment: Yes ([facility]). - Substances abused. Alcohol. Substance route: Oral. Frequency: Daily. Amount used: 5-6 Beer (22oz). Age of first use: 20. Date of last use: . Heroin. Substance route: Injection. Frequency: Daily. Amount used: 6 - 10 bags. Age of first use: 25. Date of last use: 10/06/19. Cocaine. Substance route: Injection. Frequency: Daily. Amount used: 6- 10 bags. Age of first use: 20. Date of last use: 10/06/19 Medical History: Medical profile is remarkable for GERD, hypertension and history of orthosurgery for fracture of left forearm (age 25). Psychiatric History: Patient denies history of psychiatric hospitalizations, OPD care or suicide attempts. Physical/Sexual Abuse/Trauma History: Patient denies. Additional Comment: Urine drug screen results: ONEIL-Cocaine, FEN-Fentanyl, MOP- Opiates. Noted. Mental Status Exam - Mental Status Exam Alert and Oriented to: Time, Place, Person Cognitive Function: Good Patient Appearance: Well Groomed Mood: Withdrawn, Hopeful Affect: Mood Congruent, Constricted Patient Behavior: Fatigued, Appropriate, Cooperative Speech Pattern: Clear, Appropriate Voice Loudness: Normal Thought Process: Intact, Goal Oriented Thought Disorder: Not Present Hallucinations: Denies Suicidal Ideation: Denies Homicidal Ideation: Denies Insight/Judgement: Poor Sleep: Poorly, Difficulty falling asleep Appetite: Good Muscle strength/Tone: Normal Gait/Station: Normal Psychiatric Findings - Problem List ([place] 1, 2,3) (1) Alcohol dependence with uncomplicated withdrawal Current Visit: Yes Status: Acute (2) Opioid dependence with withdrawal Current Visit: Yes Status: Acute (3) Cocaine dependence, uncomplicated Current Visit: Yes Status: Chronic (4) Nicotine dependence Current Visit: Yes Status: Chronic Qualifiers: Nicotine product type: cigarettes Substance use status: uncomplicated Qualified Code(s): F17.210 - Nicotine dependence, cigarettes, uncomplicated (5) Insomnia Current Visit: Yes Status: Chronic - Initial Treatment Plan Initial Treatment Plan: Psychoeducation. Sleep hygiene. Detoxification in progress. Support. Insomnia is addressed with seroquel 50 mg po hs (patient's specific request). Side effects/benefits are discussed with patient. Consent ( verbal) granted to MD. Roman.
--- NOTE | 2019-10-07 12:37 | PN ---
S CIWA - CIWA Score Nausea/Vomitin-Mild Nausea/No Vomiting Muscle Tremors: 4-Moderate,w/Arms Extend Anxiety: 3 Agitation: 1-Slight > Activity Paroxysmal Sweats: 2 Orientation: 0-Oriented Tacttile Disturbances: 0-None Auditory Disturbances: 0-None Visual Disturbances: 1-Very Mild Sensitivity Headache: 2-Mild CIWA-Ar Total Score: 14 BHS COWS - Scale Resting Pulse: 0= [place] 80 or Below Sweatin= Chills/Flushing Restless Observation: 0= Sits Still Pupil Size: 1= Pupils >than Normal Bone or Joint Aches: 1= Mild Discomfort Runny Nose/ Eye Tearin= Nasal Congestion GI Upset > 30mins: 2= Nausea/Diarrhea Tremor Observation of Outstretched Hands: 2= Slight Tremor Visible Yawning Observation: 1= 1-2x During Session Anxiety or Irritability: 2=Irritable/Anxious Goose Flesh Skin: 3=Piloerection COWS Score: 14 S Progress Note (SOAP) Subjective: 54 years old male admitted on 10/07/19 for alcohol and opiate withdrawal sx management treating with librium and methadone detox regimen feeling tired prefers to sleep in bed today limited conversation with staff Objective: 10/07/19 12:38 Vital Signs Temperature 97.8 F 10/07/19 09:08 Pulse Rate 68 10/07/19 09:08 Respiratory Rate 18 10/07/19 09:08 Blood Pressure 151/86 10/07/19 09:08 O2 Sat by Pulse Oximetry (%) 10/07/19 12:38 lab pending 10/07/19 12:40 bp elevation begin amlodipine 10 mg po Assessment: 10/07/19 12:41 alcohol and opaite withdrawal Plan: librium and methadone regimens
--- NOTE | 2019-10-07 12:44 | EKG ---
Test Reason : Blood Pressure : / mmHG Vent. Rate : 068 BPM Atrial Rate : 068 BPM P-R Int : 172 ms QRS Dur : 086 ms QT Int : 422 ms P-R-T Axes : 065 029 006 degrees QTc Int : 448 ms NORMAL SINUS RHYTHM NORMAL ECG Confirmed by MD VAMSI, JAIMEE ([id number]) on 10/07/2019 12:44:12 PM Referred By: Jack Spaulding Confirmed By:JAIMEE AGUSTIN MD
[2019-10-07] MEDS: amLODIPine BESYLATE 10 MG TABLET (FP) PO SCH (14:00)
[2019-10-07] MEDS: THIAMINE HCL 100 MG TABLET (FP) PO SCH (22:42)
[2019-10-07] MEDS: QUEtiapine FUMARATE 50 MG TABLET PO SCH (22:42)
[2019-10-07] MEDS: chlordiazePOXIDE HCL 25 MG CAPSULE PO SCH (22:44)
[2019-10-08] MEDS ORDERED: METHADONE (DETOX) 20 MG, METHADONE (DETOX) 5 MG PO ONE ×2 (06:00→10:00)
[2019-10-08] MEDS: chlordiazePOXIDE HCL 25 MG CAPSULE PO SCH ×4 (06:48→22:17)
[2019-10-08] MEDS ORDERED: METHADONE HCL 10 MG TABLET (FOR DETOX USE ONLY) ONE (09:08)
[2019-10-08] MEDS ORDERED: METHADONE HCL 5 MG TABLET (FOR DETOX USE ONLY) ONE (09:08)
[2019-10-08 09:41] LABS: HEMATOCRIT 44.2 % (35.4-49); HEMOGLOBIN 14.9 GM/dL (11.7-16.9); MCH 29.8 pg (25.7-33.7); MCHC 33.7 g/dl (32.0-35.9); MEAN CELL VOLUME 88.4 fl (80-96); PLATELET COUNT 196 K/MM3 (134-434); RDW 14.3 % (11.9-15.9); WHITE BLOOD COUNT 2.7 K/mm3 (4.0-10.0)
[2019-10-08 09:59] LABS: ALBUMIN 3.2 g/dl (3.4-5.0); BILIRUBIN,TOTAL 0.3 mg/dL (0.2-1); BLOOD UREA NITROGEN 11.2 mg/dL (7-18); POTASSIUM 3.9 mmol/L (3.5-5.1); TOT PROT 7.4 g/dl (6.4-8.2)
[2019-10-08] MEDS: amLODIPine BESYLATE 10 MG TABLET (FP) PO SCH (10:21)
[2019-10-08] MEDS: NICOTINE 21 MG/24 HOURS TOPICAL PATCH TD SCH (10:21)
[2019-10-08] MEDS: PRENATAL VITAMINS W/ FOLIC ACID TABLET (FP) PO SCH (10:21)
[2019-10-08 11:39] LABS: RPR REFLEX REACTIVE 1:1 (NONREACTIVE)
[2019-10-08 11:40] LABS: TREPONEMA ANTIBODY PREVIOUSLY REACTIVE (NONREACTIVE)
[2019-10-08] MEDS: chlordiazePOXIDE HCL 25 MG CAPSULE PO PRN (13:28)
[2019-10-08] MEDS: ACETAMINOPHEN 325 MG TABLET (FP) PO PRN ×2 (13:55→19:18)
--- NOTE | 2019-10-08 14:43 | PN ---
S CIWA - CIWA Score Nausea/Vomitin-Mild Nausea/No Vomiting Muscle Tremors: 1-None Visible, but [place] Anxiety: 1-Mildly Anxious Agitation: 1-Slight > Activity Paroxysmal Sweats: 2 Orientation: 0-Oriented Tacttile Disturbances: 2-Mild Itch/Numbness/Burn Auditory Disturbances: 0-None Visual Disturbances: 0-None Headache: 0-None Present CIWA-Ar Total Score: 8 BHS Progress Note (SOAP) Subjective: interrupted sleep,sweats, shakes Objective: 10/08/19 14:41 Vital Signs Temperature 97.5 F L 10/08/19 13:12 Pulse Rate 106 H 10/08/19 13:12 Respiratory Rate 20 10/08/19 13:12 Blood Pressure 132/82 10/08/19 13:12 O2 Sat by Pulse Oximetry (%) Laboratory Tests 10/08/19 10/08/19 10/08/19 08:10 08:10 08:10 WBC 2.7 L RBC 5.00 Hgb 14.9 Hct 44.2 D MCV 88.4 MCH 29.8 MCHC 33.7 RDW 14.3 Plt Count 196 MPV 9.0 Sodium 139 Potassium 3.9 Chloride 108 H Carbon Dioxide 27 Anion Gap 4 L BUN 11.2 Creatinine 1.0 Est GFR (CKD-EPI)AfAm 98.46 Est GFR (CKD-EPI)NonAf 84.95 Random Glucose 122 H Calcium 9.0 Total Bilirubin 0.3 AST 76 H ALT 97 H Alkaline Phosphatase 102 Total Protein 7.4 Albumin 3.2 L RPR Titer Reactive 1:1 H T.pallidum Ab (MHA) Previously reactive pt aox3 in nad ambulating Assessment: 10/08/19 14:42 withdrawal sx's neutropenia 10/08/19 14:43 Plan: cont. detox increase fluids
[2019-10-08] MEDS: QUEtiapine FUMARATE 50 MG TABLET PO SCH (22:17)
[2019-10-08] MEDS: THIAMINE HCL 100 MG TABLET (FP) PO SCH (22:17)
[2019-10-08] MEDS: BENZOCAINE 20 % GEL TUBE MM PRN (23:06)
[2019-10-09] MEDS: chlordiazePOXIDE HCL 25 MG CAPSULE PO SCH ×2 (05:39→10:06)
[2019-10-09] MEDS ORDERED: METHADONE HCL 10 MG TABLET (FOR DETOX USE ONLY) PO ONE ×2 (06:00→10:00)
[2019-10-09 09:04] VITALS: BP 132/86; PULSE 88; TEMP 97
[2019-10-09] MEDS: PRENATAL VITAMINS W/ FOLIC ACID TABLET (FP) PO SCH (10:00)
[2019-10-09] MEDS: BENZOCAINE 20 % GEL TUBE MM PRN (10:01)
[2019-10-09] MEDS: NICOTINE 21 MG/24 HOURS TOPICAL PATCH TD SCH (10:01)
[2019-10-09] MEDS: amLODIPine BESYLATE 10 MG TABLET (FP) PO SCH (10:06)
--- NOTE | 2019-10-09 10:29 | PN ---
S CIWA - CIWA Score Nausea/Vomitin-No Nausea/No Vomiting Muscle Tremors: 2 Anxiety: 3 Agitation: 1-Slight > Activity Paroxysmal Sweats: No Perspiration Orientation: 0-Oriented Tacttile Disturbances: 0-None Auditory Disturbances: 0-None Visual Disturbances: 0-None Headache: 0-None Present CIWA-Ar Total Score: 6 BHS COWS - Scale Resting Pulse: 1= [place] 81-100 Sweatin= Chills/Flushing Restless Observation: 0= Sits Still Pupil Size: 1= Pupils >than Normal Bone or Joint Aches: 1= Mild Discomfort Runny Nose/ Eye Tearin= Nasal Congestion GI Upset > 30mins: 0= None Tremor Observation of Outstretched Hands: 1= Tremor [place], Not Seen Yawning Observation: 0= None Anxiety or Irritability: 1=Feels Anxious/Irritable Goose Flesh Skin: 0=Smooth Skin COWS Score: 7 S Progress Note (SOAP) Subjective: 54 years old male admitted on 10/07/19 for alcohol and opiate withdrawal sx management treating with libirum and methadone detox regimens feeling tired limited conversation with staff ate breakfast prefers to stay in room today encourage to attend behavior and psychosocial therapies groups and meetings while in detox Objective: 10/09/19 10:28 Vital Signs Temperature 97.0 F L 10/09/19 09:03 Pulse Rate 88 10/09/19 09:03 Respiratory Rate 18 10/09/19 09:03 Blood Pressure 132/86 10/09/19 09:03 O2 Sat by Pulse Oximetry (%) Laboratory Last Values WBC 2.7 K/mm3 (4.0-10.0) L 10/08/19 08:10 RBC 5.00 M/mm3 (4.00-5.60) 10/08/19 08:10 Hgb 14.9 GM/dL (11.7-16.9) 10/08/19 08:10 Hct 44.2 % (35.4-49) D 10/08/19 08:10 MCV 88.4 fl (80-96) 10/08/19 08:10 MCH 29.8 pg (25.7-33.7) 10/08/19 08:10 MCHC 33.7 g/dl (32.0-35.9) 10/08/19 08:10 RDW 14.3 % (11.9-15.9) 10/08/19 08:10 Plt Count 196 K/MM3 (134-434) 10/08/19 08:10 MPV 9.0 fl (7.5-11.1) 10/08/19 08:10 Sodium 139 mmol/L (136-145) 10/08/19 08:10 Potassium 3.9 mmol/L (3.5-5.1) 10/08/19 08:10 Chloride 108 mmol/L (98-107) H 10/08/19 08:10 Carbon Dioxide 27 mmol/L (21-32) 10/08/19 08:10 Anion Gap 4 MMOL/L (8-16) L 10/08/19 08:10 BUN 11.2 mg/dL (7-18) 10/08/19 08:10 Creatinine 1.0 mg/dL (0.55-1.3) 10/08/19 08:10 Est GFR (CKD-EPI)AfAm 98.46 10/08/19 08:10 Est GFR (CKD-EPI)NonAf 84.95 10/08/19 08:10 Random Glucose 122 mg/dL (74-106) H 10/08/19 08:10 Calcium 9.0 mg/dL (8.5-10.1) 10/08/19 08:10 Total Bilirubin 0.3 mg/dL (0.2-1) 10/08/19 08:10 AST 76 U/L (15-37) H 10/08/19 08:10 ALT 97 U/L (13-61) H 10/08/19 08:10 Alkaline Phosphatase 102 U/L (45-117) 10/08/19 08:10 Total Protein 7.4 g/dl (6.4-8.2) 10/08/19 08:10 Albumin 3.2 g/dl (3.4-5.0) L 10/08/19 08:10 RPR Titer Reactive 1:1 (NONREACTIVE) H 10/08/19 08:10 T.pallidum Ab (MHA) Previously reactive (NONREACTIVE) 10/08/19 08:10 lab noted 10/09/19 10:29 long history of low wbc asymptomatic patient prefers to discuss low wbc with his primary care provider in community health service Assessment: 10/09/19 10:31 alcohol and opiate withdrawal Plan: librium and methadone detox regimen strong recommend medication assisted treatment program
--- NOTE | 2019-10-09 14:44 | DS ---
[facility] Detox Discharge Summary Admission Date: 10/07/19 Discharge Date: 10/09/19 - History Present History: Alcohol Dependence, Opioid Dependence Additional Comments: 54 years old male admitted on 10/07/19 for alcohol and opiate withdrawal sx management treated with librium and methadone detox regimens patient is alert oriented x 3 speech clearly coherently steady gait patient requests to be discharge today as per estimated discharge date of due to "mother " patient denies suicidal ideation denies homocidal ideation no self destructive behavior case discussed with the nurse against medical advice is appropriated - Physical Exam Results Vital Signs: Vital Signs Temperature 97.0 F L 10/09/19 09:03 Pulse Rate 88 10/09/19 09:03 Respiratory Rate 18 10/09/19 09:03 Blood Pressure 132/86 10/09/19 09:03 O2 Sat by Pulse Oximetry (%) Pertinent Admission Physical Exam Findings: alcohol and opiate withdrawal Laboratory Last Values WBC 2.7 K/mm3 (4.0-10.0) L 10/08/19 08:10 RBC 5.00 M/mm3 (4.00-5.60) 10/08/19 08:10 Hgb 14.9 GM/dL (11.7-16.9) 10/08/19 08:10 Hct 44.2 % (35.4-49) D 10/08/19 08:10 MCV 88.4 fl (80-96) 10/08/19 08:10 MCH 29.8 pg (25.7-33.7) 10/08/19 08:10 MCHC 33.7 g/dl (32.0-35.9) 10/08/19 08:10 RDW 14.3 % (11.9-15.9) 10/08/19 08:10 Plt Count 196 K/MM3 (134-434) 10/08/19 08:10 MPV 9.0 fl (7.5-11.1) 10/08/19 08:10 Sodium 139 mmol/L (136-145) 10/08/19 08:10 Potassium 3.9 mmol/L (3.5-5.1) 10/08/19 08:10 Chloride 108 mmol/L (98-107) H 10/08/19 08:10 Carbon Dioxide 27 mmol/L (21-32) 10/08/19 08:10 Anion Gap 4 MMOL/L (8-16) L 10/08/19 08:10 BUN 11.2 mg/dL (7-18) 10/08/19 08:10 Creatinine 1.0 mg/dL (0.55-1.3) 10/08/19 08:10 Est GFR (CKD-EPI)AfAm 98.46 10/08/19 08:10 Est GFR (CKD-EPI)NonAf 84.95 10/08/19 08:10 Random Glucose 122 mg/dL (74-106) H 10/08/19 08:10 Calcium 9.0 mg/dL (8.5-10.1) 10/08/19 08:10 Total Bilirubin 0.3 mg/dL (0.2-1) 10/08/19 08:10 AST 76 U/L (15-37) H 10/08/19 08:10 ALT 97 U/L (13-61) H 10/08/19 08:10 Alkaline Phosphatase 102 U/L (45-117) 10/08/19 08:10 Total Protein 7.4 g/dl (6.4-8.2) 10/08/19 08:10 Albumin 3.2 g/dl (3.4-5.0) L 10/08/19 08:10 RPR Titer Reactive 1:1 (NONREACTIVE) H 10/08/19 08:10 T.pallidum Ab (MHA) Previously reactive (NONREACTIVE) 10/08/19 08:10 lab noted low wbc patient agrees to follow up with [facility] for low wbc - Treatment Hospital Course: Detox Protocol Followed Patient has Accepted a Rehab Referral to: community support approach - Medication Discharge Medications: Ambulatory Orders Naloxone HCl [Narcan] 4 mg NS ASDIR PRN #1 spray 10/07/19 - Diagnosis (1) HTN (hypertension) Status: Chronic Qualifiers: Hypertension type: essential hypertension Qualified Code(s): I10 - Essential (primary) hypertension (2) Alcohol dependence with uncomplicated withdrawal Status: Acute (3) Opioid dependence with withdrawal Status: Acute (4) GERD (gastroesophageal reflux disease) Status: Chronic Qualifiers: Esophagitis presence: without esophagitis Qualified Code(s): K21.9 - Gastro -esophageal reflux disease without esophagitis - AMA Did Patient Leave Against Medical Advice: Yes
[2019-10-10] MEDS ORDERED: chlordiazePOXIDE HCL 10 MG CAPSULE PO PRN
[2019-10-10] MEDS ORDERED: chlordiazePOXIDE HCL 10 MG CAPSULE PO SCH (05:00)
[2019-10-10] MEDS ORDERED: METHADONE (DETOX) 10 MG, METHADONE (DETOX) 5 MG PO ONE ×2 (06:00→10:00)
[2019-10-11] MEDS ORDERED: chlordiazePOXIDE HCL 10 MG CAPSULE PO SCH (05:00)
[2019-10-11] MEDS ORDERED: METHADONE HCL 10 MG TABLET (FOR DETOX USE ONLY) PO ONE ×2 (06:00→10:00)
[2019-10-12] MEDS ORDERED: chlordiazePOXIDE HCL 10 MG CAPSULE PO ONE (05:00)
[2019-10-12] MEDS ORDERED: METHADONE HCL 5 MG TABLET (FOR DETOX USE ONLY) PO ONE ×2 (06:00→10:00)
== END 2019-10-09 11:09 | disposition left against medical advice (07) | DRG 770 ==
LOC: YASAS 19:36 → Y3N 10-07 00:56
PROVIDERS: ADMIT Allergy & Immunology; ATTEND Allergy & Immunology
PROC: HZ2ZZZZ Detoxification Services for Substance Abuse Treatment (ICD-10-PCS; principal; 2019-10-07)
DX: F10.230 Alcohol dependence with withdrawal, uncomplicated (principal); F11.23 Opioid dependence with withdrawal; F14.20 Cocaine dependence, uncomplicated; F17.210 Nicotine dependence, cigarettes, uncomplicated; D70.9 Neutropenia, unspecified; I10 Essential (primary) hypertension; K21.9 Gastro-esophageal reflux disease without esophagitis; G47.00 Insomnia, unspecified; B18.2 Chronic viral hepatitis C
CPT/HCPCS: 36415; 80053; 85027; 86593; 86780; 93005; 93010; J0735

== ENCOUNTER 2020-06-09 13:32 | Inpatient (IN) | payer OTHER ==
--- NOTE | 2020-06-09 13:53 | BHS.RME ---
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) Heroin Substance amount: 10 bags Frequency of use: Daily Substance route: Injection (ex: intravenous or skin popping) Date of Last Use: 06/09/20 (started age 20 2 OD's last one 2 weeks ago) Cocaine- Powder Substance amount: 10 bags Frequency of use: Daily Substance route: Injection (ex: intravenous or skin popping) Date of Last Use: 06/09/20 (started age 20) Nicotine Substance amount: 1 pack Frequency of use: Daily Substance route: Smoking Date of Last Use: 06/09/20 Physical/Psych/Mental Status - Behavior General Behavior: Increased activity (restlessness, agitation) Eye Contact: Normal - Cooperativeness Cooperativeness: Cooperative - Thinking Thought Processes: Tight, Logical, Goal Directed - Physical Health Problems Is patient presently having any pain?: No Does patient presently have any injuries (include location): No Does patient currently have a fever: No Is patient : No COWS - Scale Resting Pulse: 0= [place] 80 or Below Sweatin= Chills/Flushing Restless Observation: 1= Difficult to Sit Still Pupil Size: 1= Pupils >than Normal Bone or Joint Aches: 4=Acute Joint/Muscle Pain Runny Nose/ Eye Tearin= Nasal Congestion GI Upset > 30mins: 0= None Tremor Observation: 2= Slight Tremor Visible Yawning Observation: 1= 1-2x During Session Anxiety or Irritability: 1=Feels Anxious/Irritable Goose Flesh Skin: 0=Smooth Skin COWS Score: 12 CIWA Nausea/Vomitin Muscle Tremors: 4-Moderate,w/Arms Extend Anxiety: 4-Mod. Anxious/Guarded Agitation: 4-Moderately Restless Paroxysmal Sweats: 1-Minimal Palms Moist Orientation: 0-Oriented Tacttile Disturbances: 0-None Auditory Disturbances: 0-None Visual Disturbances: 0-None Headache: 1-Very Mild CIWA-Ar Total Score: 16
--- NOTE | 2020-06-09 15:09 | HP ---
COWS - Scale Resting Pulse: 0= [place] 80 or Below Sweatin= Chills/Flushing Restless Observation: 1= Difficult to Sit Still Pupil Size: 1= Pupils >than Normal Bone or Joint Aches: 4=Acute Joint/Muscle Pain Runny Nose/ Eye Tearin= Nasal Congestion GI Upset > 30mins: 0= None Tremor Observation: 2= Slight Tremor Visible Yawning Observation: 1= 1-2x During Session Anxiety or Irritability: 1=Feels Anxious/Irritable Goose Flesh Skin: 0=Smooth Skin COWS Score: 12 CIWA Score Nausea/Vomitin Muscle Tremors: 4-Moderate,w/Arms Extend Anxiety: 4-Mod. Anxious/Guarded Agitation: 4-Moderately Restless Paroxysmal Sweats: 1-Minimal Palms Moist Orientation: 0-Oriented Tacttile Disturbances: 0-None Auditory Disturbances: 0-None Visual Disturbances: 0-None Headache: 1-Very Mild CIWA-Ar Total Score: 16 - Admission Criteria [facility] Guidelines: Admission for Medically Managed Detox: Requires at least one of the followin. CIWA greater than 12 2. Seizures within the past 24 hours 3. Delirium tremens within the past 24 hours 4. Hallucinations within the past 24 hours 5. Acute intervention needed for co occurring medical disorder 6. Acute intervention needed for co occurring psychiatric disorder 7. Severe withdrawal that cannot be handled at a lower level of care (continued vomiting, continued diarrhea, abnormal vital signs) requiring intravenous medication and/or fluids 8. Admitting History and Physical - Admission History of Present Illness: Patient is a 55 y.o. M PMHx HTN presenting to [facility] for detox. 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 Heroin 10 bags a day IV, 2 overdoses most recent 2 weeks ago. 10 bags of cocaine IV a day and 1 pack of cigarettes per day. 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 No: Hyperlipdemia Pulmonary: No: COPD Gastrointestinal: No: GERD, GI Bleed Hepatobiliary: No: Hepatitis A, Hepatitis B, Hepatitis C Infectious Disease: No: HIV, STD's, Tuberculosis - Past Surgical History Additional Past Surgical History: L FOREARM HARDWARE 30 YEARS AGO - Smoking History Smoking history: Current every day smoker Have you smoked in the past 12 months: Yes Aproximately how many cigarettes per day: 20 - Alcohol/Substance Use Hx Alcohol Use: Yes History of Substance Use: reports: Cocaine, Heroin - Social History Usual Living Arrangement: Yes: Alone ADL: Independent History of Recent Travel: No Admission [facility] Allergies/Adverse Reactions: Allergies Allergy/AdvReac Type Severity Reaction Status Date / Time No Known Allergies Allergy Verified 10/06/19 19:53 Exam Limitations: No Limitations - Ebola screening Have you traveled outside of the country in the last 21 days: No Have you had contact with anyone from an Ebola affected area: No Have you been sick,other than usual withdrawal symptoms: No Do you have a fever: No - Review of Systems Constitutional: No Symptoms Reported EENT: denies: Blurred Vision, Double Vision Respiratory: denies: Cough, Shortness of Breath Cardiac: denies: Chest Pain, Lightheadedness GI: denies: Constipated, Diarrhea, Nausea, Vomiting : denies: Burning, Dysuria Musculoskeletal: denies: Muscle Pain, Muscle Weakness Neuro: denies: Headache, Dizziness Hematology: denies: Easy Bleeding Psychiatric: reports: No Sypmtoms Reported, Judgement Intact, Mood/Affect Appropiate, Orientated x3 Patient History - Patient Medical History Hx Anemia: No Hx Asthma: No Hx Chronic Obstructive Pulmonary Disease (COPD): No Hx Cancer: No Hx Cardiac Disorders: No Hx Congestive Heart Failure: No Hx Hypertension: Yes (Not on medication) Hx Hypercholesterolemia: No Hx Pacemaker: No HX Cerebrovascular Accident: No Hx Seizures: No Hx Dementia: No Hx Diabetes: No Hx Gastrointestinal Disorders: No Hx Liver Disease: No Hx Genitourinary Disorders: No Hx Sexually Transmitted Disorders: No Hx Renal Disease (ESRD): No Hx Thyroid Disease: No Hx Human Immunodeficiency Virus (HIV): No (NEGATIVE 2019) Hx Hepatitis C: Yes (Not treated) Hx Depression: No Hx Suicide Attempt: No (Denies suicidal ideation at this time) Hx Bipolar Disorder: No Hx Schizophrenia: No - Patient Surgical History Past Surgical History: Yes Hx Neurologic Surgery: No Hx Cataract Extraction: No Hx Cardiac Surgery: No Hx Lung Surgery: No Hx Breast Surgery: No Hx Breast Biopsy: No Hx Abdominal Surgery: No Hx Appendectomy: No Hx Cholecystectomy: No Hx Genitourinary Surgery: No Hx Section: No Hx Orthopedic Surgery: Yes (fx, left forearm at age 25 [employer]) Anesthesia Reaction: No - PPD History Date: 04/08/18 Results: 0 mm - Smoking Cessation Smoking history: Current every day smoker Have you smoked in the past 12 months: Yes Aproximately how many cigarettes per day: 20 Cigars Per Day: 0 Hx Chewing Tobacco Use: No Initiated information on smoking cessation: Yes 'Breaking Loose' booklet given: 06/09/20 Admission Physical Exam S - Physical General Appearance: Yes: Within Normal Limits, No Apparent Distress, Nourished, Appropriately Dressed Respiratory: Yes: Chest Non-Tender, Lungs Clear, No Respiratory Distress, No Accessory Muscle Use, Rhonchi Cardiology: Yes: Within Normal Limits, Regular Rhythm, Regular Rate. No: Murmur, Tachycardia Abdominal: Yes: Within Normal Limits, Normal Bowel Sounds, Non Tender, Flat, Soft. No: Tenderness Back: Yes: Within Normal Limits, Normal Inspection. No: CVA Tenderness Musculoskeletal: Yes: Within Normal Limits, full range of Motion. No: Muscle Pain, Muscle weakness Extremities: Yes: Within Normal Limits, Normal Inspection, Normal Range of Motion, Non-Tender. No: Swelling Neurological: Yes: Within Normal Limits, Fully Oriented, Alert, Normal Mood/Affect, Normal Response Integumentary: Yes: Within Normal Limits, Dry, Warm - Diagnostic (1) Alcohol dependence with uncomplicated withdrawal Current Visit: No Status: Acute (2) Opioid dependence with withdrawal Current Visit: No Status: Acute (3) Cocaine dependence, uncomplicated Current Visit: No Status: Chronic (4) HTN (hypertension) Current Visit: No Status: Chronic Qualifiers: (5) Nicotine dependence Current Visit: No Status: Chronic Qualifiers: Cleared for Admission [facility] - Detox or Rehab [facility] Level of Care: Medically Managed Detox Regimen/Protocol: Methadone Breathalyzer - Breathalyzer Breathalyzer: 0 Vital Signs - Vital Signs Vital signs refused: No Temperature: 97.6 F Pulse Rate: 76 Respiratory Rate: 14 Blood Pressure: 144/102 - Height Height: 1.8 m - Weight Weight: 86.636 kg - BMI Body Mass Index (BMI): 26.6 Urine Drug Screen - Test Device Lot number: [id number] Expiration date: 04/23/21 - Control Is test valid?: Yes - Results Drug screen NEGATIVE: No Urine drug screen results: ONEIL-Cocaine, FEN-Fentanyl, MOP-Opiates Inpatient Rehab Admission - Rehab Decision to Admit Inpatient rehab admission?: No
[2020-06-09] MEDS ORDERED: MAG HYDROX/AL HYDROX/SIMETH 30 ML UNIT-DOSE CUP PO PRN (15:10)
[2020-06-09] MEDS ORDERED: ONDANSETRON *ODT* 4 MG TABLET SL PRN (15:10)
[2020-06-09] MEDS ORDERED: cloNIDine HCL 0.1 MG TABLET PO PRN (15:10)
[2020-06-09] MEDS ORDERED: MAGNESIUM CITRATE 300 ML BOTTLE PO PRN (15:10)
[2020-06-09] MEDS ORDERED: IBUPROFEN 400 MG TABLET (FP) PO PRN (15:10)
[2020-06-09] MEDS ORDERED: ACETAMINOPHEN 325 MG TABLET (FP) PO PRN ×2 (15:10)
[2020-06-09] MEDS ORDERED: MAGNESIUM HYDROX 2400MG/30ML ORAL SUSPENSION 30 ML CUP PO PRN (15:10)
[2020-06-09] MEDS ORDERED: MENTHOL/PHENOL 1 EACH UD MM PRN (15:10)
[2020-06-09] MEDS ORDERED: METHOCARBAMOL 500 MG TABLET PO PRN (15:10)
[2020-06-09] MEDS ORDERED: BISMUTH SUBSALICYLATE 524 MG/30 ML UD PO PRN (15:10)
[2020-06-09] MEDS ORDERED: METHADONE HCL 10 MG TABLET (FOR DETOX USE ONLY) PO ONE (15:10)
[2020-06-09] MEDS ORDERED: NICOTINE POLACRILEX 2 MG GUM BUC PRN (15:10)
[2020-06-09] MEDS ORDERED: chlordiazePOXIDE HCL 25 MG CAPSULE PO PRN (15:10)
[2020-06-09 15:16] VITALS: BMI 26.6
--- NOTE | 2020-06-09 15:25 | PN ---
Teaching Attending Note Name of Resident: Tony Bernal ATTENDING PHYSICIAN STATEMENT I saw and evaluated the patient. I reviewed the resident's note and discussed the case with the resident. I agree with the resident's findings and plan as documented. SUBJECTIVE: OBJECTIVE: ASSESSMENT AND PLAN: Patient is a 55 y.o. M PMHx HTN presenting to [facility] for detox. 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 Heroin 10 bags a day IV, 2 overdoses most recent 2 weeks ago. 10 bags of cocaine IV a day and 1 pack of cigarettes per day. 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 Alcohol use disorder, withdrawal 2. Opioid use disorder, withdrawal 3. Cocaine abuse 4, Nicotine dependence Plan 1. Librium detox protocol 2. Methadone detox protocol
[2020-06-09] MEDS: hydrOXYzine PAMOATE 25 MG CAPSULE (FP) PO SCH ×2 (18:11→22:26)
[2020-06-09] MEDS: chlordiazePOXIDE HCL 25 MG CAPSULE PO SCH ×2 (18:11→22:26)
--- OUTSIDE RECORDS SUMMARY | 2020-06-09 19:30 | XMS ---
:1965 Author Organization [facility] Support Name Relationship Address Phone UE Unavailable Unavailable Unavailable AYDEN BOYER MOTHER [id number] [phone] [place] [address] Re-disclosure Warning The records that you are about to access may contain information from federally- assisted alcohol or drug abuse programs. If such information is present, then the following federally mandated warning applies: This information has been disclosed to you from records protected by federal confidentiality rules (42 CFR part 2). The federal rules prohibit you from making any further disclosure of this information unless further disclosure is expressly permitted by the written consent of the person to whom it pertains or as otherwise permitted by 42 CFR part 2. A general authorization for the release of medical or other information is NOT sufficient for this purpose. The Federal rules restrict any use of the information to criminally investigate or prosecute any alcohol or drug abuse patient.The records that you are about to access may contain highly sensitive health information, the redisclosure of which is protected by Article 27-F of the [facility] Public Health law. If you continue you may haveaccess to information: Regarding HIV / AIDS; Provided by facilities licensed or operated by the [facility] Office of Mental Health; or Provided by the [facility] Office for People With Developmental Disabilities. If such information is present, then the following [facility] mandated warning applies: This information has been disclosed to you from confidential records which are protected by state law. State law prohibits you from making any further disclosure of this information without the specific written consent of the person to whom it pertains, or as otherwise permitted by law. Any unauthorized further disclosure in violation of state law may result in a fine or penitentiary sentence or both. A general authorization for the release of medical or other information is NOT sufficient authorization for further disclosure. Insurance Providers Payer name Policy type Policy ID Covered Covered republican's Policy P ami / Coverage republican ID relationship to [facility] ormation type [facility] [employer] [id number] SP [id number] Q MEDICAID [id number] SP [id number] PENDING EXCHANGE SELF PAY SP INSURANCE
[2020-06-09 19:33] LABS: HEMATOCRIT 42.9 % (35.4-49); HEMOGLOBIN 14.3 GM/dL (11.7-16.9); MCH 30.4 pg (25.7-33.7); MCHC 33.4 g/dl (32.0-35.9); MEAN CELL VOLUME 91.1 fl (80-96); MEAN PLT VOLUME 9.6 fl (7.5-11.1); PLATELET COUNT 192 K/MM3 (134-434); RBC 4.71 M/mm3 (4.00-5.60); RDW 14.2 % (11.9-15.9); WHITE BLOOD COUNT 3.5 K/mm3 (4.0-10.0)
[2020-06-09 19:50] LABS: ALBUMIN 3.4 g/dl (3.4-5.0); BILIRUBIN,TOTAL 0.9 mg/dL (0.2-1); BLOOD UREA NITROGEN 13.5 mg/dL (7-18); CREATININE 1.2 mg/dL (0.55-1.3); POTASSIUM 4.3 mmol/L (3.5-5.1); TOT PROT 7.6 g/dl (6.4-8.2)
[2020-06-09] MEDS: THIAMINE HCL 100 MG TABLET (FP) PO SCH (22:26)
[2020-06-09] MEDS: MELATONIN 5 MG TABLETS PO SCH (22:26)
[2020-06-10] MEDS: hydrOXYzine PAMOATE 25 MG CAPSULE (FP) PO SCH ×5 (05:49→22:56)
[2020-06-10] MEDS: chlordiazePOXIDE HCL 25 MG CAPSULE PO SCH ×4 (05:49→22:57)
[2020-06-10] MEDS ORDERED: METHADONE HCL 10 MG TABLET (FOR DETOX USE ONLY) ONE (09:11)
[2020-06-10] MEDS ORDERED: METHADONE HCL 5 MG TABLET (FOR DETOX USE ONLY) ONE (09:11)
[2020-06-10] MEDS ORDERED: METHADONE (DETOX) 20 MG, METHADONE (DETOX) 5 MG PO ONE (10:00)
[2020-06-10] MEDS: PRENATAL VITAMINS W/ FOLIC ACID TABLET (FP) PO SCH (10:26)
[2020-06-10] MEDS: NICOTINE 7 MG/24 HOURS TOPICAL PATCH TD SCH (10:26)
--- NOTE | 2020-06-10 11:57 | PN ---
S CIWA - CIWA Score Nausea/Vomitin Muscle Tremors: 2 Anxiety: 2 Agitation: 2 Paroxysmal Sweats: No Perspiration Orientation: 0-Oriented Tacttile Disturbances: 1-Very Mild Itch/Numbness Auditory Disturbances: 0-None Visual Disturbances: 0-None Headache: 2-Mild CIWA-Ar Total Score: 11 BHS COWS - Scale Resting Pulse: 2= [place] 101-120 Sweatin= No chills or Flushing Restless Observation: 0= Sits Still Pupil Size: 1= Pupils >than Normal Bone or Joint Aches: 1= Mild Discomfort Runny Nose/ Eye Tearin= Nasal Congestion GI Upset > 30mins: 1= Stomach Cramp Tremor Observation of Outstretched Hands: 2= Slight Tremor Visible Yawning Observation: 1= 1-2x During Session Anxiety or Irritability: 2=Irritable/Anxious Goose Flesh Skin: 0=Smooth Skin COWS Score: 11 S Progress Note (SOAP) Subjective: alert,irritable,anxious,interrupted sleep,tremor,pain in the body and back Objective: 06/10/20 16:47 Vital Signs Temperature 96.8 F L 06/10/20 12:37 Pulse Rate 73 06/10/20 12:37 Respiratory Rate 18 06/10/20 12:37 Blood Pressure 144/90 06/10/20 12:37 O2 Sat by Pulse Oximetry (%) 97 06/10/20 12:37 Laboratory Last Values WBC 3.5 K/mm3 (4.0-10.0) L 06/09/20 15:00 RBC 4.71 M/mm3 (4.00-5.60) 06/09/20 15:00 Hgb 14.3 GM/dL (11.7-16.9) 06/09/20 15:00 Hct 42.9 % (35.4-49) 06/09/20 15:00 MCV 91.1 fl (80-96) 06/09/20 15:00 MCH 30.4 pg (25.7-33.7) 06/09/20 15:00 MCHC 33.4 g/dl (32.0-35.9) 06/09/20 15:00 RDW 14.2 % (11.9-15.9) 06/09/20 15:00 Plt Count 192 K/MM3 (134-434) 06/09/20 15:00 MPV 9.6 fl (7.5-11.1) 06/09/20 15:00 Sodium 141 mmol/L (136-145) 06/09/20 15:00 Potassium 4.3 mmol/L (3.5-5.1) 06/09/20 15:00 Chloride 103 mmol/L (98-107) 06/09/20 15:00 Carbon Dioxide 32 mmol/L (21-32) 06/09/20 15:00 Anion Gap 6 MMOL/L (8-16) L 06/09/20 15:00 BUN 13.5 mg/dL (7-18) 06/09/20 15:00 Creatinine 1.2 mg/dL (0.55-1.3) 06/09/20 15:00 Est GFR (CKD-EPI)AfAm 78.43 06/09/20 15:00 Est GFR (CKD-EPI)NonAf 67.67 06/09/20 15:00 Random Glucose 126 mg/dL (74-106) H 06/09/20 15:00 Calcium 9.0 mg/dL (8.5-10.1) 06/09/20 15:00 Total Bilirubin 0.9 mg/dL (0.2-1) 06/09/20 15:00 AST 61 U/L (15-37) H 06/09/20 15:00 ALT 61 U/L (13-61) 06/09/20 15:00 Alkaline Phosphatase 94 U/L (45-117) 06/09/20 15:00 Total Protein 7.6 g/dl (6.4-8.2) 06/09/20 15:00 Albumin 3.4 g/dl (3.4-5.0) 06/09/20 15:00 Syphilis Serology Reactive (NONREACTIVE) A* 06/09/20 15:00 RPR Titer Reactive 1:1 (NONREACTIVE) H 06/09/20 15:00 06/10/20 16:54 patient was adequately treated for syphilis before Assessment: 06/10/20 16:48 withdrawal symptom Plan: continue detox methadone and librium regimen
[2020-06-10] MEDS: THIAMINE HCL 100 MG TABLET (FP) PO SCH (22:56)
[2020-06-10] MEDS: MELATONIN 5 MG TABLETS PO SCH (22:57)
[2020-06-11] MEDS: chlordiazePOXIDE HCL 25 MG CAPSULE PO SCH ×4 (06:24→22:18)
[2020-06-11] MEDS: hydrOXYzine PAMOATE 25 MG CAPSULE (FP) PO SCH ×5 (06:24→22:18)
--- NOTE | 2020-06-11 08:46 | PN ---
BHS COWS - Scale Resting Pulse: 0= [place] 80 or Below Sweatin= No chills or Flushing Restless Observation: 0= Sits Still Pupil Size: 0= Normal to Room Light Bone or Joint Aches: 0= None Runny Nose/ Eye Tearin= None GI Upset > 30mins: 0= None Tremor Observation of Outstretched Hands: 0= None Yawning Observation: 0= None Anxiety or Irritability: 0= None Goose Flesh Skin: 0=Smooth Skin COWS Score: 0 BHS Progress Note (SOAP) Subjective: Patient was examined by bedside. Patient feels well was eating breakfast and had no complaints. Objective: 06/11/20 08:42 PE: General: No acute distress, alert and awake MSK: gait normal, pelvis stable, normal range of motion Skin: No lesions or abrasions skin color normal. MS: responds appropriately to questions, oriented x3, pleasant demeanor CBC,CMP WBC 3.5 K/mm3 (4.0-10.0) L 06/09/20 15:00 RBC 4.71 M/mm3 (4.00-5.60) 06/09/20 15:00 Hgb 14.3 GM/dL (11.7-16.9) 06/09/20 15:00 Hct 42.9 % (35.4-49) 06/09/20 15:00 MCV 91.1 fl (80-96) 06/09/20 15:00 MCH 30.4 pg (25.7-33.7) 06/09/20 15:00 MCHC 33.4 g/dl (32.0-35.9) 06/09/20 15:00 RDW 14.2 % (11.9-15.9) 06/09/20 15:00 Plt Count 192 K/MM3 (134-434) 06/09/20 15:00 MPV 9.6 fl (7.5-11.1) 06/09/20 15:00 Sodium 141 mmol/L (136-145) 06/09/20 15:00 Potassium 4.3 mmol/L (3.5-5.1) 06/09/20 15:00 Chloride 103 mmol/L (98-107) 06/09/20 15:00 Carbon Dioxide 32 mmol/L (21-32) 06/09/20 15:00 Anion Gap 6 MMOL/L (8-16) L 06/09/20 15:00 BUN 13.5 mg/dL (7-18) 06/09/20 15:00 Creatinine 1.2 mg/dL (0.55-1.3) 06/09/20 15:00 Est GFR (CKD-EPI)AfAm 78.43 06/09/20 15:00 Est GFR (CKD-EPI)NonAf 67.67 06/09/20 15:00 Random Glucose 126 mg/dL (74-106) H 06/09/20 15:00 Calcium 9.0 mg/dL (8.5-10.1) 06/09/20 15:00 Total Bilirubin 0.9 mg/dL (0.2-1) 06/09/20 15:00 AST 61 U/L (15-37) H 06/09/20 15:00 ALT 61 U/L (13-61) 06/09/20 15:00 Alkaline Phosphatase 94 U/L (45-117) 06/09/20 15:00 Total Protein 7.6 g/dl (6.4-8.2) 06/09/20 15:00 Albumin 3.4 g/dl (3.4-5.0) 06/09/20 15:00 Last Vital Signs Temp Pulse Resp BP Pulse Ox 97.5 F L 69 18 148/101 H 99 06/11/20 06:00 06/11/20 06:00 06/11/20 06:00 06/11/20 06:00 06/11/20 06:00 Current Medications Generic Name Dose Route Start Last Admin Trade Name Freq PRN Reason Stop Dose Admin Acetaminophen 650 mg 06/09/20 15:10 Tylenol - PO Q6H PRN PAIN LEVEL 4 - 6 Acetaminophen 650 mg 06/09/20 15:10 Tylenol - PO Q6H PRN FEVER Al Hydroxide/Mg Hydroxide 30 ml 06/09/20 15:10 06/09/20 18:14 Mylanta Oral Suspension - PO 30 ml Q6H PRN Administration DYSPEPSIA Bismuth Subsalicylate 524 mg 06/09/20 15:10 Pepto-Bismol - PO Q1H PRN DIARRHEA Chlordiazepoxide HCl 25 mg 06/11/20 05:00 06/11/20 06:24 Librium - PO 06/11/20 23:01 25 mg [id number] LESVIA Administration Chlordiazepoxide HCl 25 mg 06/09/20 15:10 Librium - PO 06/11/20 23:59 Q4H PRN WITHDRAWAL(CONT SUBST) Chlordiazepoxide HCl 10 mg 06/12/20 05:00 Librium - PO 06/12/20 23:01 [id number] LESVIA Chlordiazepoxide HCl 10 mg 06/13/20 05:00 Librium - PO 06/13/20 17:01 Q12H LESVIA Chlordiazepoxide HCl 10 mg 06/12/20 00:00 Librium - PO 06/13/20 00:00 Q4H PRN WITHDRAWAL(CONT SUBST) Chlordiazepoxide HCl 10 mg 06/14/20 05:00 Librium - PO 06/14/20 05:01 ONCE@0500 ONE Clonidine 0.1 mg 06/09/20 15:10 Catapres - PO 06/11/20 23:59 Q4H PRN Withdrawal Symptoms Eucalyptus/Menthol/Phenol/Sorbitol 1 each 06/09/20 15:10 Cepastat Lozenge - MM 06/15/20 15:10 Q4H PRN SORE THROAT Hydroxyzine Pamoate 25 mg 06/09/20 18:00 06/11/20 06:24 Vistaril - PO 06/15/20 15:10 25 mg Q4HWA LESVIA Administration Ibuprofen 400 mg 06/09/20 15:10 Motrin - PO Q6H PRN PAIN LEVEL 1 - 3 Magnesium Citrate 300 ml 06/09/20 15:10 Citroma - PO Q48H PRN CONSTIPATION Magnesium Hydroxide 30 ml 06/09/20 15:10 Milk Of Magnesia - PO PRN PRN CONSTIPATION Melatonin 5 mg 06/09/20 22:00 06/10/20 22:57 Melatonin PO 5 mg HS LESVIA Administration Methadone HCl 5 mg 06/14/20 06:00 Dolophine - PO 06/14/20 06:01 ONCE@0600 ONE Methadone HCl 10 mg 06/13/20 10:00 Dolophine - PO 06/13/20 10:01 ONCE ONE Methadone HCl 20 mg 06/11/20 10:00 Dolophine - PO 09/18/20 10:01 ONCE ONE Methadone HCl 10 mg/ Methadone 15 mg 06/12/20 10:00 HCl 5 mg PO 06/12/20 10:01 ONCE ONE Methocarbamol 500 mg 06/09/20 15:10 Robaxin - PO 06/15/20 15:10 Q6H PRN MUSCLE SPASMS Nicotine 7 mg 06/10/20 10:00 06/10/20 10:26 Nicoderm Patch - TD Not Given DAILY LESVIA Nicotine Polacrilex 2 mg 06/09/20 15:10 Nicorette Gum - BUC Q2H PRN NICOTINE REPLACEMENT RX Ondansetron HCl 4 mg 06/09/20 15:10 Zofran Odt - SL Q8H PRN Nausea/Vomiting Multivit/Folic Acid/Iron 1 tab 06/10/20 10:00 06/10/20 10:26 Vitamins (Sjr) - PO 1 tab DAILY LESVIA Administration Thiamine HCl 100 mg 06/09/20 22:00 06/10/20 22:56 Vitamin B1 - PO 100 mg HS LESVIA Administration Discontinued Medications Generic Name Dose Route Start Last Admin Trade Name Jas PRN Reason Stop Dose Admin Chlordiazepoxide HCl 50 mg 06/09/20 17:00 06/10/20 22:57 Librium - PO 06/10/20 23:01 50 mg [id number] LESVIA Administration Methadone HCl 30 mg 06/09/20 15:10 06/09/20 18:11 Dolophine - PO 06/09/20 15:11 30 mg ONCE ONE Administration Methadone HCl 20 mg/ Methadone 25 mg 06/10/20 10:00 06/10/20 10:25 HCl 5 mg PO 06/10/20 10:01 25 mg ONCE ONE Administration Tuberculin PPD 5 units 06/09/20 15:12 06/09/20 17:20 Tubersol ([facility] Only) 5ml Vial ID 06/09/20 15:13 Not Given ONCE ONE Assessment: 06/11/20 08:45 Assesment: Patient is here for detox of heroin, currently on methadone protocol day 2 06/11/20 09:51 Plan: Plan: Continue methadone protocol
[2020-06-11] MEDS ORDERED: METHADONE HCL 10 MG TABLET (FOR DETOX USE ONLY) PO ONE (10:00)
[2020-06-11] MEDS: PRENATAL VITAMINS W/ FOLIC ACID TABLET (FP) PO SCH (10:04)
[2020-06-11] MEDS: NICOTINE 7 MG/24 HOURS TOPICAL PATCH TD SCH (10:06)
[2020-06-11] MEDS: THIAMINE HCL 100 MG TABLET (FP) PO SCH (22:18)
[2020-06-11] MEDS: MELATONIN 5 MG TABLETS PO SCH (22:18)
[2020-06-12] MEDS ORDERED: chlordiazePOXIDE HCL 10 MG CAPSULE PO PRN
[2020-06-12] MEDS ORDERED: chlordiazePOXIDE HCL 10 MG CAPSULE PO SCH (05:00)
[2020-06-12] MEDS: hydrOXYzine PAMOATE 25 MG CAPSULE (FP) PO SCH (06:02)
[2020-06-12 06:35] VITALS: BP 155/94; PULSE 57; TEMP 97.1
[2020-06-12] MEDS ORDERED: METHADONE (DETOX) 10 MG, METHADONE (DETOX) 5 MG PO ONE (10:00)
--- NOTE | 2020-06-12 12:11 | DS ---
[facility] Detox Discharge Summary Admission Date: 06/09/20 Discharge Date: 06/12/20 (Pt left AMA) - History Present History: Alcohol Dependence, Cocaine Dependence, Opioid Dependence Additional Comments: Pt left AMA. Pt did not complete the detox protocol. Pt states, "i just have to leave". An attempt to let pt stay and complete the detox protocol failed. Pt is encouraged to follow-up with an outpatient CD program and also to follow-up with his pmd which he verbalized understanding. Pt is AOX3, in no acute respiratory distress, Full ROM, and ambulatory. Pertinent Past History: h/o HTN, HLD, cocaine, alcohol, and heroin use disorder. - Physical Exam Results Vital Signs: Vital Signs Temperature 97.1 F L 06/12/20 06:34 Pulse Rate 57 L 06/12/20 06:34 Respiratory Rate 18 06/12/20 06:34 Blood Pressure 155/94 06/12/20 06:34 O2 Sat by Pulse Oximetry (%) 99 06/12/20 06:34 Vital Signs 06/12/20 06:34 Temperature 97.1 F L Pulse Rate 57 L Respiratory 18 Rate Blood Pressure 155/94 O2 Sat by Pulse 99 Oximetry (%) Laboratory Last Values WBC 3.5 K/mm3 (4.0-10.0) L 06/09/20 15:00 RBC 4.71 M/mm3 (4.00-5.60) 06/09/20 15:00 Hgb 14.3 GM/dL (11.7-16.9) 06/09/20 15:00 Hct 42.9 % (35.4-49) 06/09/20 15:00 MCV 91.1 fl (80-96) 06/09/20 15:00 MCH 30.4 pg (25.7-33.7) 06/09/20 15:00 MCHC 33.4 g/dl (32.0-35.9) 06/09/20 15:00 RDW 14.2 % (11.9-15.9) 06/09/20 15:00 Plt Count 192 K/MM3 (134-434) 06/09/20 15:00 MPV 9.6 fl (7.5-11.1) 06/09/20 15:00 Sodium 141 mmol/L (136-145) 06/09/20 15:00 Potassium 4.3 mmol/L (3.5-5.1) 06/09/20 15:00 Chloride 103 mmol/L (98-107) 06/09/20 15:00 Carbon Dioxide 32 mmol/L (21-32) 06/09/20 15:00 Anion Gap 6 MMOL/L (8-16) L 06/09/20 15:00 BUN 13.5 mg/dL (7-18) 06/09/20 15:00 Creatinine 1.2 mg/dL (0.55-1.3) 06/09/20 15:00 Est GFR (CKD-EPI)AfAm 78.43 06/09/20 15:00 Est GFR (CKD-EPI)NonAf 67.67 06/09/20 15:00 POC Glucometer 110 UNITS (80-120) 06/12/20 06:03 Random Glucose 126 mg/dL (74-106) H 06/09/20 15:00 Calcium 9.0 mg/dL (8.5-10.1) 06/09/20 15:00 Total Bilirubin 0.9 mg/dL (0.2-1) 06/09/20 15:00 AST 61 U/L (15-37) H 06/09/20 15:00 ALT 61 U/L (13-61) 06/09/20 15:00 Alkaline Phosphatase 94 U/L (45-117) 06/09/20 15:00 Total Protein 7.6 g/dl (6.4-8.2) 06/09/20 15:00 Albumin 3.4 g/dl (3.4-5.0) 06/09/20 15:00 Syphilis Serology Reactive (NONREACTIVE) A* 06/09/20 15:00 RPR Titer Reactive 1:1 (NONREACTIVE) H 06/09/20 15:00 COVID-19 (FERNANDO) Not detected (Not Detected) 06/09/20 16:45 Labs noted. Pertinent Admission Physical Exam Findings: withdrawal symptoms. - Treatment Hospital Course: Detox Protocol Followed - Medication Discharge Medications: Ambulatory Orders Naloxone HCl [Narcan] 4 mg NS ASDIR PRN #1 spray 10/07/19 - Diagnosis (1) Alcohol dependence with uncomplicated withdrawal Status: Acute (2) Opioid dependence with withdrawal Status: Acute (3) Cocaine dependence, uncomplicated Status: Chronic (4) GERD (gastroesophageal reflux disease) Status: Chronic Qualifiers: Esophagitis presence: without esophagitis Qualified Code(s): K21.9 - Gastro-esophageal reflux disease without esophagitis (5) HTN (hypertension) Status: Chronic Qualifiers: (6) Nicotine dependence Status: Chronic Qualifiers: - AMA Did Patient Leave Against Medical Advice: Yes S CIWA - CIWA Score Nausea/Vomitin-No Nausea/No Vomiting Muscle Tremors: 2 Anxiety: 3 Agitation: 1-Slight > Activity Paroxysmal Sweats: 2 Orientation: 0-Oriented Tacttile Disturbances: 0-None Auditory Disturbances: 0-None Visual Disturbances: 0-None Headache: 0-None Present CIWA-Ar Total Score: 8 S COWS - Scale Resting Pulse: 0= [place] 80 or Below Sweatin= Chills/Flushing Restless Observation: 1= Difficult to Sit Still Pupil Size: 0= Normal to Room Light Bone or Joint Aches: 2= Severe Diffuse Aches Runny Nose/ Eye Tearin= None GI Upset > 30mins: 0= None Tremor Observation of Outstretched Hands: 2= Slight Tremor Visible Yawning Observation: 1= 1-2x During Session Anxiety or Irritability: 2=Irritable/Anxious Goose Flesh Skin: 0=Smooth Skin COWS Score: 9
[2020-06-13] MEDS ORDERED: chlordiazePOXIDE HCL 10 MG CAPSULE PO SCH (05:00)
[2020-06-13] MEDS ORDERED: METHADONE HCL 10 MG TABLET (FOR DETOX USE ONLY) PO ONE (10:00)
[2020-06-14] MEDS ORDERED: chlordiazePOXIDE HCL 10 MG CAPSULE PO ONE (05:00)
[2020-06-14] MEDS ORDERED: METHADONE HCL 5 MG TABLET (FOR DETOX USE ONLY) PO ONE (06:00)
== END 2020-06-12 09:19 | disposition left against medical advice (07) | DRG 770 ==
LOC: YASAS 13:32 → Y3N 16:30
PROVIDERS: ADMIT Allergy & Immunology; ATTEND Allergy & Immunology
PROC: HZ2ZZZZ Detoxification Services for Substance Abuse Treatment (ICD-10-PCS; principal; 2020-06-09)
DX: F10.230 Alcohol dependence with withdrawal, uncomplicated (principal); F11.23 Opioid dependence with withdrawal; F14.20 Cocaine dependence, uncomplicated; F17.210 Nicotine dependence, cigarettes, uncomplicated; I10 Essential (primary) hypertension; K21.9 Gastro-esophageal reflux disease without esophagitis; Z86.19 Personal history of other infectious and parasitic diseases
CPT/HCPCS: 36415; 80053; 82962; 85027; 86593; 86780; U0003

== ENCOUNTER 2020-11-06 16:47 | Inpatient (IN) | payer OTHER ==
[2020-11-06] MEDS ORDERED: NICOTINE POLACRILEX 2 MG GUM BUC PRN (21:56)
[2020-11-06] MEDS ORDERED: MAGNESIUM CITRATE 300 ML BOTTLE PO PRN (21:56)
[2020-11-06] MEDS ORDERED: MENTHOL/PHENOL 1 EACH UD MM PRN (21:56)
[2020-11-06] MEDS ORDERED: ACETAMINOPHEN 325 MG TABLET (FP) PO PRN ×2 (21:56)
[2020-11-06] MEDS ORDERED: METHADONE HCL 10 MG TABLET (FOR DETOX USE ONLY) PO ONE (21:56)
[2020-11-06] MEDS ORDERED: chlordiazePOXIDE HCL 25 MG CAPSULE PO PRN (21:56)
[2020-11-06] MEDS ORDERED: hydrOXYzine PAMOATE 25 MG CAPSULE (FP) PO PRN (21:56)
[2020-11-06] MEDS ORDERED: cloNIDine HCL 0.1 MG TABLET PO PRN (21:56)
[2020-11-06] MEDS ORDERED: MAGNESIUM HYDROX 2400MG/30ML ORAL SUSPENSION 30 ML CUP PO PRN (21:56)
[2020-11-06] MEDS ORDERED: ONDANSETRON *ODT* 4 MG TABLET SL PRN (21:56)
[2020-11-06] MEDS ORDERED: BISMUTH SUBSALICYLATE 524 MG/30 ML UD PO PRN (21:56)
[2020-11-06 22:13] VITALS: BMI 27.7
[2020-11-07] MEDS: THIAMINE HCL 100 MG TABLET (FP) PO SCH ×2 (00:41→22:12)
[2020-11-07] MEDS: MELATONIN 5 MG TABLETS PO SCH ×2 (00:41→22:14)
[2020-11-07] MEDS: chlordiazePOXIDE HCL 25 MG CAPSULE PO SCH ×5 (00:50→22:13)
[2020-11-07] MEDS ORDERED: METHADONE HCL 10 MG TABLET (FOR DETOX USE ONLY) ONE (09:16)
[2020-11-07] MEDS ORDERED: METHADONE HCL 5 MG TABLET (FOR DETOX USE ONLY) ONE (09:16)
[2020-11-07] MEDS ORDERED: METHADONE (DETOX) 20 MG, METHADONE (DETOX) 5 MG PO ONE (10:00)
[2020-11-07] MEDS: PRENATAL VITAMINS W/ FOLIC ACID TABLET (FP) PO SCH (10:46)
[2020-11-07] MEDS: NICOTINE 21 MG/24 HOURS TOPICAL PATCH TD SCH (10:50)
[2020-11-07 12:50] LABS: POTASSIUM 4.3 mmol/L (3.5-5.1)
[2020-11-07 12:53] LABS: HEMATOCRIT 37.3 % (35.4-49); HEMOGLOBIN 12.6 GM/dL (11.7-16.9); MCHC 33.9 g/dl (32.0-35.9); MEAN CELL VOLUME 88.7 fl (80-96); MEAN PLT VOLUME 9.7 fl (7.5-11.1); PLATELET COUNT 187 K/MM3 (134-434); RBC 4.21 M/mm3 (4.00-5.60); RDW 13.9 % (11.9-15.9); WHITE BLOOD COUNT 3.5 K/mm3 (4.0-10.0)
[2020-11-07 12:57] LABS: CALCIUM 8.6 mg/dL (8.5-10.1)
[2020-11-07 12:58] LABS: ALBUMIN 2.8 g/dl (3.4-5.0); BLOOD UREA NITROGEN 13.6 mg/dL (7-18)
[2020-11-07 13:01] LABS: CREATININE 0.9 mg/dL (0.55-1.3)
[2020-11-07 13:03] LABS: BILIRUBIN,TOTAL 0.6 mg/dL (0.2-1); TOT PROT 6.3 g/dl (6.4-8.2)
[2020-11-08] MEDS: IBUPROFEN 400 MG TABLET (FP) PO PRN (05:33)
[2020-11-08] MEDS: chlordiazePOXIDE HCL 25 MG CAPSULE PO SCH ×4 (05:33→22:04)
[2020-11-08] MEDS ORDERED: METHADONE HCL 10 MG TABLET (FOR DETOX USE ONLY) PO ONE (10:00)
[2020-11-08] MEDS: PRENATAL VITAMINS W/ FOLIC ACID TABLET (FP) PO SCH (10:17)
[2020-11-08] MEDS: NICOTINE 21 MG/24 HOURS TOPICAL PATCH TD SCH (10:17)
[2020-11-08] MEDS ORDERED: MELATONIN 5 MG TABLETS PO SCH (22:00)
[2020-11-08] MEDS: THIAMINE HCL 100 MG TABLET (FP) PO SCH (22:03)
[2020-11-09] MEDS: chlordiazePOXIDE HCL 10 MG CAPSULE PO PRN ×2 (01:23→11:59)
[2020-11-09] MEDS: chlordiazePOXIDE HCL 10 MG CAPSULE PO SCH ×4 (05:13→22:13)
[2020-11-09] MEDS ORDERED: METHADONE HCL 10 MG TABLET (FOR DETOX USE ONLY) ONE (09:02)
[2020-11-09] MEDS ORDERED: METHADONE HCL 5 MG TABLET (FOR DETOX USE ONLY) ONE (09:03)
[2020-11-09] MEDS ORDERED: METHADONE (DETOX) 10 MG, METHADONE (DETOX) 5 MG PO ONE (10:00)
[2020-11-09] MEDS: PRENATAL VITAMINS W/ FOLIC ACID TABLET (FP) PO SCH (10:09)
[2020-11-09] MEDS: NICOTINE 21 MG/24 HOURS TOPICAL PATCH TD SCH (10:11)
[2020-11-09] MEDS: METHOCARBAMOL 500 MG TABLET PO PRN (14:11)
[2020-11-09] MEDS: traZODone HCL 50 MG TABLET (FP) PO SCH (22:12)
[2020-11-09] MEDS: THIAMINE HCL 100 MG TABLET (FP) PO SCH (22:12)
[2020-11-10] MEDS: chlordiazePOXIDE HCL 10 MG CAPSULE PO SCH ×2 (05:55→17:49)
[2020-11-10] MEDS: IBUPROFEN 400 MG TABLET (FP) PO PRN ×2 (05:56→11:48)
[2020-11-10] MEDS: METHOCARBAMOL 500 MG TABLET PO PRN ×2 (07:09→17:50)
[2020-11-10] MEDS ORDERED: METHADONE HCL 10 MG TABLET (FOR DETOX USE ONLY) PO ONE (10:00)
[2020-11-10] MEDS: NICOTINE 21 MG/24 HOURS TOPICAL PATCH TD SCH (10:12)
[2020-11-10] MEDS: PRENATAL VITAMINS W/ FOLIC ACID TABLET (FP) PO SCH (10:13)
[2020-11-10] MEDS ORDERED: ALBUTEROL SO4 2.5/IPRATROPIUM 0.5 INH SOL 3 ML VIAL.NEB. NEB PRN (15:30)
[2020-11-10] MEDS: MAG HYDROX/AL HYDROX/SIMETH 30 ML UNIT-DOSE CUP PO PRN (22:14)
[2020-11-10] MEDS: traZODone HCL 50 MG TABLET (FP) PO SCH (22:14)
[2020-11-10] MEDS: THIAMINE HCL 100 MG TABLET (FP) PO SCH (22:14)
[2020-11-11] MEDS ORDERED: chlordiazePOXIDE HCL 10 MG CAPSULE PO ONE (05:00)
[2020-11-11] MEDS ORDERED: METHADONE HCL 5 MG TABLET (FOR DETOX USE ONLY) PO ONE (06:00)
[2020-11-11] MEDS: IBUPROFEN 400 MG TABLET (FP) PO PRN (06:47)
[2020-11-11] MEDS: NICOTINE 21 MG/24 HOURS TOPICAL PATCH TD SCH (09:44)
[2020-11-11] MEDS: PRENATAL VITAMINS W/ FOLIC ACID TABLET (FP) PO SCH (09:44)
[2020-11-11] MEDS: MAG HYDROX/AL HYDROX/SIMETH 30 ML UNIT-DOSE CUP PO PRN (11:35)
[2020-11-11 12:46] VITALS: BP 134/96; PULSE 101; TEMP 96.6
== END 2020-11-11 13:08 | disposition home or self-care (01) | DRG 773 ==
LOC: YASAS 16:47 → Y3N 21:51
PROVIDERS: ADMIT Allergy & Immunology; ATTEND Allergy & Immunology
PROC: HZ2ZZZZ Detoxification Services for Substance Abuse Treatment (ICD-10-PCS; principal; 2020-11-06)
DX: F11.23 Opioid dependence with withdrawal (principal); F10.230 Alcohol dependence with withdrawal, uncomplicated; F14.20 Cocaine dependence, uncomplicated; F17.210 Nicotine dependence, cigarettes, uncomplicated; F19.282 Other psychoactive substance dependence with psychoactive substance-induced sleep disorder; F19.24 Other psychoactive substance dependence with psychoactive substance-induced mood disorder; F20.9 Schizophrenia, unspecified; E78.5 Hyperlipidemia, unspecified; G47.00 Insomnia, unspecified; I10 Essential (primary) hypertension; K21.9 Gastro-esophageal reflux disease without esophagitis; M54.5 Low back pain; Z86.19 Personal history of other infectious and parasitic diseases
CPT/HCPCS: 36415; 80053; 85027; 86593; 86780; 93005; 93010; C9803; J0735; U0003